=== PATIENT | female | born 1990 | race Caucasian/White ===

== ENCOUNTER 2016-09-27 09:07 | Emergency (ER) | payer BC ==
[2016-09-27 09:19] VITALS: BP 129/78
[2016-09-27] MEDS ORDERED: Lidocaine/EPINEPHrine/Tetracaine Soln 1 ML TOP ONE (09:36)
--- NOTE | 2016-09-27 09:36 | EDM.PDOC ---
ED HPI GENERAL MEDICAL PROBLEM - General Chief Complaint: Chest Pain Stated Complaint: CHEST PAIN CHEMO PATIENT Time Seen by Provider: 09/27/16 09:26 Source of Information: Reports: Patient, Family (spouse) History Limitations: Reports: No Limitations - History of Present Illness INITIAL COMMENTS - FREE TEXT/NARRATIVE: 26-year-old female presents to the ED with pleuritic anterior chest pain. She feels that in the pelvis stomach and then radiates up into her neck and anterior throat. Seems to be worse on the right as compared to the left. She awoke with these symptoms this morning. She was fine when she went to bed last night. Patient is undergone recent left subclavian node biopsy with confirmation of Hodgkin's disease. In suffering from intermittent fever night sweats diaphoresis for the last 3-4 weeks. Apparently she also had indirect laryngoscopy or bronchoscopy which failed to provide any firm diagnosis. She's also had a spontaneous pneumothorax on the left side in the past. Pain is strongly pleuritic. Denies cough or sputum production. She feels warm to palpation but nurses identify a normal temperature. She is tachypneic at rest. O2 sats are 99% on room air. Resting tachycardia of 110-115/m. no associated odynophagia or GERD symptoms. Onset: Today (Left with symptom O's about 0730 hrs.) Onset Date: 09/27/16 Onset Time: 07:30 Duration: Hour(s): Location: Reports: Chest Quality: Reports: Sharp, Stabbing Severity: Moderate (Pleuritic-type pain rates pain as 6-7 out of 10) Improves with: Reports: Rest Worsens with: Reports: Other (Shallow breathing deep breathing) Context: Reports: Other (Awoke with symptoms.). Denies: Activity ( or cough.), Exercise, Lifting, Sick Contact, Trauma Associated Symptoms: Reports: Chest Pain, Diaphoresis, Malaise, Shortness of Breath, Weakness. 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) (None.) Middle Pain Score (Numeric/FACES): 7 - Related Data Allergies Allergy/AdvReac Type Severity Reaction Status Date / Time No Known Allergies Allergy Verified 09/27/16 09:23 Home Meds: Home Meds Acyclovir [Zovirax] 800 mg PO BID 03/17/16 [History] Allopurinol [Zyloprim] 300 mg PO DAILY 03/17/16 [History] Fluconazole [Diflucan] 400 mg PO DAILY 03/17/16 [History] Hydrocortisone [Hydrocortisone 2.5% Crm] 30 gm TOP BID 03/17/16 [History] Levofloxacin [Levaquin] 500 mg PO Q24H 03/17/16 [History] Ondansetron [Zofran] 8 mg PO Q8H 03/17/16 [History] Polyethylene Glycol 3350 [MiraLAX] 17 gm PO DAILY 03/17/16 [History] Vit 90/Iron Fum/Folic [ Formula] 1 tab PO DAILY 03/17/16 [ History] Promethazine HCl [Phenergan] 25 mg TOP Q6H 03/17/16 [History] Sennosides/Docusate Sodium [Senna Laxative Tablet] 2 tab PO DAILY 03/17/16 [ History] Sulfamethoxazole/Trimethoprim [Bactrim Ds Tablet] 1 each PO MOWEFR 03/17/16 [ History] medroxyPROGESTERone Acetate [Depo-Provera] 150 mg IM ASDIRECTED 03/17/16 [ History] oxyCODONE HCl/Acetaminophen [oxyCODONE-Acetaminophen 5-325] 1 - 2 tab PO Q6H PRN 03/17/16 [History] traMADol [Ultram] 50 mg PO Q6H 03/17/16 [History] Ondansetron [Zofran ODT] 4 mg PO Q6H #12 tab.dis 09/27/16 [Rx] oxyCODONE HCl/Acetaminophen [Percocet 5-325 mg Tablet] 1 - 2 each PO Q4H PRN # 20 tablet 09/27/16 [Rx] Past Medical History HEENT History: Reports: None Cardiovascular History: Reports: None Respiratory History: Reports: None Gastrointestinal History: Reports: Other (See Below) Other Gastrointestinal History: Crohn's disease Genitourinary History: Reports: None 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 - Infectious Disease History Infectious Disease History: Reports: Chicken Pox - Past Surgical History HEENT Surgical History: Reports: Tonsillectomy GI Surgical History: Reports: Colonoscopy Social & Family History - Tobacco Use Smoking Status *Q: Never Smoker Second Hand Smoke Exposure: No - Caffeine Use Caffeine Use: Reports: None - Alcohol Use Days Per Week of Alcohol Use: 0 - Recreational Drug Use Recreational Drug Use: No - Living Situation & Occupation Living situation: Reports: ED ROS GENERAL - Review of Systems Review Of Systems: See Below Constitutional: Reports: Fever, Chills, Malaise, Weakness, Fatigue, Night Sweats , Diaphoresis, Decreased Appetite, Weight Loss, Other (Recent diagnosis of Hodgkin's disease by his way of subclavian node biopsy.) HEENT: Reports: No Symptoms Respiratory: Reports: Shortness of Breath, Pleuritic Chest Pain. Denies: Wheezing, Cough, Sputum, Hemoptysis, Other Cardiovascular: Reports: Chest Pain. Denies: Blood Pressure Problem (History of present illness), Claudication, Dyspnea on Exertion, Edema, Lightheadedness, Orthopnea, Palpitations Endocrine: Reports: Fatigue GI/Abdominal: Reports: Decreased Appetite. Denies: Abdominal Pain, Anorexia : Reports: No Symptoms Musculoskeletal: Reports: No Symptoms Skin: Reports: No Symptoms, Pallor Neurological: Reports: No Symptoms ED EXAM, GENERAL - Physical Exam Exam: See Below Exam Limited By: No Limitations General Appearance: Alert, Moderate Distress (Splinting respirations. She is breathing shallowly and rapidly.) Eye Exam: Bilateral Eye: Normal Inspection (No jaundice.) Throat/Mouth: Normal Inspection, Normal Lips, Normal Teeth, Normal Oropharynx Head: Atraumatic, Normocephalic Neck: Lymphadenopathy (L) (Left supraclavicular and anterior to the sternocleidomastoid.), Other (She has a surgical wound with skin glue left anterior lateral neck.) Respiratory/Chest: Lungs Clear, Normal Breath Sounds, No Accessory Muscle Use, Chest Non-Tender, Other (Port-A-Cath right upper anterior chest.). No: Crackles , Rales, Rhonchi, Wheezing Cardiovascular: Normal Peripheral Pulses, Regular Rate, Rhythm, No Edema, No Murmur, No Rub Peripheral Pulses: 3+: Posterior Tibial (L), Posterior Tibial (R), Dorsalis Pedis (L), Dorsalis Pedis (R) GI/Abdominal: Normal Bowel Sounds, Soft, Non-Tender, No Organomegaly Extremities: Normal Inspection, Normal Range of Motion, Non-Tender, Normal Capillary Refill Neurological: Alert, Oriented, CN II-XII Intact, Normal Cognition, Normal Gait, Normal Reflexes, No Motor/Sensory Deficits Psychiatric: Normal Affect, Normal Mood Skin Exam: Warm, Dry, Intact, Normal Color, No Rash Lymphatic: No Adenopathy EKG INTERPRETATION EKG Date: 09/27/16 Time: 09:15 Rhythm: NSR Rate (Beats/Min): 100 Cashion: Normal P-Wave: Present QRS: Normal ST-T: Other (Borderline repolarization abnormality.) QT: Normal Course - Vital Signs Last Recorded V/S: Last Vital Signs Temp 36.4 C 09/27/16 09:12 Pulse 110 H 09/27/16 09:12 Resp 10 L 09/27/16 09:12 BP 129/78 09/27/16 09:12 Pulse Ox 95 09/27/16 09:12 - Orders/Labs/Meds Orders: Active Orders 24 hr Category Date Time Status EKG 12 Lead [EKG Documentation Completion] [RC] STAT Care 09/27/16 09:59 Active Insert Urinary Catheter [OM.PC] Q24H Care 09/27/16 11:15 Ordered Urinary Catheter Assessment [RC] ASDIRECTED Care 09/27/16 11:10 Active Labs: Laboratory Tests 09/27/16 09/27/16 09/27/16 Range/Units 10:25 10:25 10:25 WBC 18.15 H (3.98-10.04) K/mm3 RBC 3.42 L (3.98-5.22) M/mm3 Hgb 9.2 L (11.2-15.7) gm/L Hct 29.2 L (34.1-44.9) % MCV 85.4 (79.4-94.8) fl MCH 26.9 (25.6-32.2) pg MCHC 31.5 L (32.2-35.5) g/dl RDW Std Deviation 47.4 H (36.4-46.3) fL Plt Count 543 H (182-369) K/mm3 MPV 8.9 L (9.4-12.3) fl Neutrophils % (Manual) 91 H (40-60) % Band Neutrophils % 0 (0-10) % Lymphocytes % (Manual) 2 L (20-40) % Atypical Lymphs % 0 % Monocytes % (Manual) 7 (2-10) % Eosinophils % (Manual) 0 L (0.7-5.8) % Basophils % (Manual) 0 L (0.1-1.2) Platelet Estimate Increased Plt Morphology Comment Normal Polychromasia 1+ slight Poikilocytosis Moderate Anisocytosis Moderate Microcytosis Few Spherocytes Few Helmet Cells Few Schistocytes Few RBC Morph Comment Not Reportable D-Dimer, Quantitative 0.98 H (0.19-0.59) mg/L Sodium 142 (136-145) mEq/L Potassium 3.2 L (3.5-5.1) mEq/L Chloride 106 (98-107) mEq/L Carbon Dioxide 28 (21-32) mEq/L Anion Gap 11.2 (5-15) BUN 14 (7-18) mg/dL Creatinine 1.0 (0.55-1.02) mg/dL Est Cr Clr Drug Dosing 73.62 mL/min Estimated GFR (MDRD) > 60 (>60) mL/min BUN/Creatinine Ratio 14.0 (14-18) Glucose 90 (74-106) mg/dL Calcium 8.9 (8.5-10.1) mg/dL Magnesium 1.7 L (1.8-2.4) mg/dl Total Bilirubin 0.3 (0.2-1.0) mg/dL AST 13 L (15-37) U/L ALT 21 (14-59) U/L Alkaline Phosphatase 95 (46-116) U/L Troponin I 0.038 (0.00-0.056) ng/mL Total Protein 6.1 L (6.4-8.2) g/dl Albumin 2.6 L (3.4-5.0) g/dl Globulin 3.5 gm/dL Albumin/Globulin Ratio 0.7 L (1-2) Urine Color (Yellow) Urine Appearance (Clear) Urine pH (5.0-8.0) Ur Specific Gregory (1.005-1.030) Urine Protein (Negative) Urine Glucose (UA) (Negative) Urine Ketones (Negative) Urine Occult Blood (Negative) Urine Nitrite (Negative) Urine Bilirubin (Negative) Urine Urobilinogen (0.2-1.0) Ur Leukocyte Esterase (Negative) Urine RBC (0-5) /hpf Urine WBC (0-5) /hpf Ur Epithelial Cells (0-5) /hpf Urine Bacteria (FEW) /hpf Urine Mucus (FEW) /hpf 09/27/16 Range/Units 11:12 WBC (3.98-10.04) K/mm3 RBC (3.98-5.22) M/mm3 Hgb (11.2-15.7) gm/L Hct (34.1-44.9) % MCV (79.4-94.8) fl MCH (25.6-32.2) pg MCHC (32.2-35.5) g/dl RDW Std Deviation (36.4-46.3) fL Plt Count (182-369) K/mm3 MPV (9.4-12.3) fl Neutrophils % (Manual) (40-60) % Band Neutrophils % (0-10) % Lymphocytes % (Manual) (20-40) % Atypical Lymphs % % Monocytes % (Manual) (2-10) % Eosinophils % (Manual) (0.7-5.8) % Basophils % (Manual) (0.1-1.2) Platelet Estimate Plt Morphology Comment Polychromasia Poikilocytosis Anisocytosis Microcytosis Spherocytes Helmet Cells Schistocytes RBC Morph Comment D-Dimer, Quantitative (0.19-0.59) mg/L Sodium (136-145) mEq/L Potassium (3.5-5.1) mEq/L Chloride (98-107) mEq/L Carbon Dioxide (21-32) mEq/L Anion Gap (5-15) BUN (7-18) mg/dL Creatinine (0.55-1.02) mg/dL Est Cr Clr Drug Dosing mL/min Estimated GFR (MDRD) (>60) mL/min BUN/Creatinine Ratio (14-18) Glucose (74-106) mg/dL Calcium (8.5-10.1) mg/dL Magnesium (1.8-2.4) mg/dl Total Bilirubin (0.2-1.0) mg/dL AST (15-37) U/L ALT (14-59) U/L Alkaline Phosphatase (46-116) U/L Troponin I (0.00-0.056) ng/mL Total Protein (6.4-8.2) g/dl Albumin (3.4-5.0) g/dl Globulin gm/dL Albumin/Globulin Ratio (1-2) Urine Color Light yellow (Yellow) Urine Appearance Clear (Clear) Urine pH 7.0 (5.0-8.0) Ur Specific Gregory 1.015 (1.005-1.030) Urine Protein Negative (Negative) Urine Glucose (UA) Negative (Negative) Urine Ketones Negative (Negative) Urine Occult Blood 1+ H (Negative) Urine Nitrite Negative (Negative) Urine Bilirubin Negative (Negative) Urine Urobilinogen 0.2 (0.2-1.0) Ur Leukocyte Esterase Negative (Negative) Urine RBC 5-10 H (0-5) /hpf Urine WBC 0-5 (0-5) /hpf Ur Epithelial Cells 0-5 (0-5) /hpf Urine Bacteria Not seen (FEW) /hpf Urine Mucus Not seen (FEW) /hpf Meds: Medications Discontinued Medications Generic Name Dose Route Start Last Admin Trade Name Freq PRN Reason Stop Dose Admin Heparin Sodium (Porcine) 500 units 09/27/16 12:33 09/27/16 12:43 Heparin Lock Flush 100 Units/Ml FLUSH 09/27/16 12:34 500 units ASDIRECTED ONE Administration Hydromorphone HCl 0.5 mg 09/27/16 10:05 Dilaudid IVPUSH 09/27/16 10:06 ONETIME ONE Sodium Chloride 100 mls @ 65 mls/hr 09/27/16 10:45 09/27/16 10:46 Normal Saline IV 65 mls/hr ASDIRECTED CHAUNCEY Administration Iopamidol 100 ml 09/27/16 10:35 09/27/16 10:45 Isovue-370 (76%) IVPUSH 09/27/16 10:36 100 ml ONETIME ONE Administration Lidocaine/Tetracaine 1 ml 09/27/16 09:36 09/27/16 10:32 Let Soln TOP 09/27/16 09:37 1 ml ONETIME ONE Administration Metoclopramide HCl 7.5 mg 09/27/16 10:05 Reglan IVPUSH 09/27/16 10:06 ONETIME ONE Sodium Chloride 10 ml 09/27/16 10:35 09/27/16 10:46 Saline Flush FLUSH 10 ml ONETIME PRN Administration IV FLUSH - Radiology Interpretation Free Text/Narrative:: 26-year-old female presents the ED with pleuritic anterior mid chest pain also a bit to the right. Her symptoms this morning. She is breathing shallowly and is tachycardic at rest. Diagnosis of Hodgkin's disease by way of lymph node biopsy left anterior lateral neck. Has been on chemotherapy including bleomycin and recent chemotherapy changed when they were at the [facility] last week. They're not sure what this medication is at this time. Pain is partially 7 out of 10. Strongly pleuritic. Exam shows lungs with good air entry to both lung montgomery O2 sats of 99-100% on room air. Concern for pulmonary embolism exist due to Hodgkin's disease. Plan we'll start with 2 view chest make sure there is no repeat current pneumothorax or pneumomediastinum. She has a Port-A-Cath right upper anterior chest. - Re-Assessments/Exams Free Text/Narrative Re-Assessment/Exam: 09/27/16 10:14 2 view chest x-ray does not reveal any new been pneumomediastinum or pneumothorax. The lungs visualized appear clear. There may be some mild prominence in the right perihilar area. Therefore her Port-A-Cath will be accessed. She'll be given D5 normal saline at 150 mils per hour. Given Dilaudid 0.5 mg IV with Reglan 7.5 mg IV for pain relief. CT pulmonary angiogram will be done. Labs to include d-dimer and troponin. 09/27/16: D-Dimer is 0.98. WBC is elevated at 18.5 --90 % neutrophils and 0% bands. Hgb is 9.2 hct is 29.2. Platelets are eelvated at 543,000. Potassium is low at 3.2 . magnesium is 1.7 Urine reveals 5-10 RBC`s. 09/27/16 11:35: CT pulmonary angiogram has been completed. It reveals nodule s in lungs and paramedian lymph nodes are smaller than on previous CT exam No pulmonary emboli exist. She reports pleuritic pain has let up a good deal without pain meds. She refused the Dilaudid andregaln offered to her earlier. Plan : She will be discharged to home. Cause of pleuritic pain unclear. Obvious irritation of lung and mediastinal pleura. From necrosis of tumor? Script written for Zofran 4mg s/l Q 6hrs prn for nausea releif. Percocet tabs 5/ 325mg one every 4-6hrs prn if need for pain releif. May try Aleve two tabs Q 8hrs prn first. Follow up with oncologist as planned. Departure - Departure Time of Disposition: 12:17 Disposition: Home, Self-Care 01 Condition: Fair Clinical Impression: Pleuritic chest pain Prescriptions: Ondansetron [Zofran ODT] 4 mg PO Q6H #12 tab.dis oxyCODONE HCl/Acetaminophen [Percocet 5-325 mg Tablet] 1 - 2 each PO Q4H PRN # 20 tablet PRN Reason: pain relief. Instructions: Nonspecific Chest Pain, [id number] Referrals: Suha Finch MD [Primary Care Provider] - Forms: ED Department Discharge Additional Instructions: Evaluation in the emergency room today in regards to strong pleuritic sharp stabbing anterior chest pain that she awoke with this morning. 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 Workup was done to make sure there was no blood clots in the lungs and none were found. The visualized previous lymphadenopathy along the mediastinum and in the lungs is shrinking and improved from last CT done here. Elevated white count is felt to be due to steroid effect as you do not have a fever at this time at least very low-grade. Because of the pleuritic chest pain is unclear it may be due to tumor necrosis or deaths of tumor cells secondary to chemotherapy. It may be due to the side effect of chemotherapy itself. However there is no blood clot in the lawn or heart related illness. Suggested use of Zofran 4 mg under the tongue every 4-6 hours as necessary for nausea relief. Use Aleve 2 tablets every 8 hours to relieve pain and inflammation. May use Percocet 5/3/25 milligrams if needed for more severe pain. You could use 1 tablet every 4-6 hours with the Zofran 4 mg under the tongue if necessary if the pain pill causes nausea. Follow-up with her oncologist of any further problems occur. - My Orders Last 24 Hours: My Active Orders 09/27/16 09:59 EKG 12 Lead [EKG Documentation Completion] [RC] STAT 09/27/16 11:10 Urinary Catheter Assessment [RC] ASDIRECTED 09/27/16 11:15 Insert Urinary Catheter [OM.PC] Q24H - Assessment/Plan Last 24 Hours: My Active Orders 09/27/16 09:59 EKG 12 Lead [EKG Documentation Completion] [RC] STAT 09/27/16 11:10 Urinary Catheter Assessment [RC] ASDIRECTED 09/27/16 11:15 Insert Urinary Catheter [OM.PC] Q24H
[2016-09-27] MEDS ORDERED: HYDROmorphone 0.5 MG/0.5 ML Syringe IVPUSH ONE (10:05)
[2016-09-27] MEDS ORDERED: Metoclopramide 10 MG/2 ML SDV IVPUSH ONE (10:05)
[2016-09-27] MEDS ORDERED: Sodium Chloride 0.9% 10 ML Syringe FLUSH PRN (10:35)
[2016-09-27] MEDS ORDERED: Iopamidol 755 Mg/ML 100 ML Bottle IVPUSH ONE (10:35)
[2016-09-27] MEDS ORDERED: Sodium Chloride 0.9% 100 ML IV SCH (10:45)
--- NOTE | 2016-09-27 11:32 | CT ---
CT chest Technique: Multiple axial sections were obtained through the chest. Intravenous contrast was utilized. Study has been performed as a pulmonary angiogram protocol. Comparison: Previous outside chest CT of 02/18/16. Findings: Pulmonary arteries are well-opacified. No filling defects are seen to indicate pulmonary embolism. Confluent adenopathy is seen within the mediastinum. This shows some improvement from previous exam. Adenopathy is seen within both hilar regions. Hilar adenopathy is also improved from prior exam. Scattered nodules are seen within the chest which are less prominent than on previous exam. Pericardial thickening is seen which also has improved. Small portion of the visualized upper abdominal structures are within normal limits. No axillary adenopathy is seen. Impression: 1. No findings of pulmonary embolism. 2. Confluent adenopathy within the mediastinum and hilar regions. Multiple pulmonary nodules are seen. All 3 finding show improvement from prior CT exam of 02/18/16. 3. Pericardial thickening which also has improved from prior exam. Diagnostic code #3
--- NOTE | 2016-09-27 14:37 | CR ---
Chest: Two views of the chest were obtained. Comparison: No previous chest x-ray. Nodular type density is seen within the left base. This is seen on the frontal view. Prominence of the right hilum is seen and difficult to exclude adenopathy. There is also soft tissue fullness within the right mediastinum. Infusion catheter seen entering from the right side. Bony structures are unremarkable. Impression: 1. Findings within the chest as described above. Chest CT could be considered to further evaluate. Diagnostic code #9
== END 2016-09-27 12:50 | disposition home or self-care (01) ==
LOC: JD.ED 09:07
DX: R07.81 Pleurodynia (principal); Z79.899 Other long term (current) drug therapy; Z98.890 Other specified postprocedural states
CPT/HCPCS: 36415; 36591; 51701; 71020; 71275; 80053; 81001; 83735; 84484; 85025; 85379; 93005; 99285; A9270; J1642; J7030; J7050; Q9967; 99284

== ENCOUNTER 2017-06-23 18:53 | Emergency (ER) | payer BC ==
[2017-06-23 19:13] VITALS: BP 101/69
--- NOTE | 2017-06-23 19:40 | EDM.PDOC ---
ED HPI GENERAL MEDICAL PROBLEM - General Chief Complaint: Fever Stated Complaint: FEVER/HAS STAGE 4 CANCER Time Seen by Provider: 06/23/17 19:15 - History of Present Illness INITIAL COMMENTS - FREE TEXT/NARRATIVE: 27-year-old female returns emergency room with fevers chills worsening cough. Patient has had fevers for about the last week she was in the clinic diagnosed with urinary tract infection on Tuesday she was started on Levaquin. 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 She had this done in November the lymphoma was back in April now she is on immune therapy this was just started. Her family has been sick the last week or so. She's had temperature as high as 1027 at home. She is not having significant nausea or vomiting no diarrhea or constipation no significant belly tenderness. chest pain Pain Score (Numeric/FACES): 4 - Related Data Allergies Allergy/AdvReac Type Severity Reaction Status Date / Time brentuximab vedotin Allergy Difficulty Verified 06/23/17 19:13 Breathing Home Meds: Home Meds Hydrocortisone [Hydrocortisone 2.5% Crm] 30 gm TOP BID PRN 03/17/16 [History] Levofloxacin [Levaquin] 500 mg PO Q24H 03/17/16 [History] Polyethylene Glycol 3350 [MiraLAX] 17 gm PO DAILY PRN 03/17/16 [History] Vit 90/Iron Fum/Folic [ Formula] 1 tab PO DAILY 03/17/16 [ History] Promethazine HCl [Phenergan] 25 mg TOP Q6H PRN 03/17/16 [History] Sennosides/Docusate Sodium [Senna Laxative Tablet] 2 tab PO DAILY 03/17/16 [ History] medroxyPROGESTERone Acetate [Depo-Provera] 150 mg IM ASDIRECTED 03/17/16 [ History] D-Mannose 600 mg PO DAILY 06/23/17 [History] Gabapentin [Neurontin] 300 mg PO BID 06/23/17 [History] Lidocaine 4% [LMX 4 Crm] 1 dose TOP ASDIRECTED PRN 06/23/17 [History] Ondansetron [Zofran ODT] 4 mg PO Q6H PRN 06/23/17 [History] Oseltamivir [Tamiflu] 75 mg PO Q12H #9 cap 06/23/17 [Rx] Penicillin V Potassium 500 mg PO BID 06/23/17 [History] Vancomycin 125 mg PO DAILY 06/23/17 [History] Past Medical History HEENT History: Reports: None Cardiovascular History: Reports: None Respiratory History: Reports: Pneumonia, Recurrent, Other (See Below) 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 Gastrointestinal History: Reports: Other (See Below) Other Gastrointestinal History: Crohn's disease Genitourinary History: Reports: UTI, Recurrent Other Genitourinary History: self cath - 5-6 times a day NOTCH GRINDER History: Reports: Musculoskeletal History: Reports: None Other Musculoskeletal History: transverse melitis Hematologic History: Reports: Anemia Immunologic History: Reports: Immunosuppression, Other (See Below) Other Immunologic History: Crohn's in remission, immunotherapy Oncologic (Cancer) History: Reports: Hodgkin's Lymphoma, Other (See Below) 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 - Infectious Disease History Infectious Disease History: Reports: Chicken Pox - Past Surgical History HEENT Surgical History: Reports: Tonsillectomy GI Surgical History: Reports: Colonoscopy Social & Family History - Family History Cardiac: Reports: [place] Endocrine/Metabolic: Reports: Diabetes, Type I Oncologic: Reports: Breast - Tobacco Use Smoking Status *Q: Never Smoker Second Hand Smoke Exposure: No - Caffeine Use Caffeine Use: Reports: None - Alcohol Use Days Per Week of Alcohol Use: 0 - Recreational Drug Use Recreational Drug Use: No - Living Situation & Occupation Living situation: Reports: ED ROS GENERAL - Review of Systems Review Of Systems: See Below Constitutional: Reports: Fever, Chills HEENT: Reports: Rhinitis Respiratory: Reports: Cough, Sputum Cardiovascular: Reports: No Symptoms Endocrine: Reports: No Symptoms GI/Abdominal: Reports: Nausea. Denies: No Symptoms, Abdominal Pain : Reports: No Symptoms Musculoskeletal: Reports: No Symptoms Skin: Reports: No Symptoms Neurological: Reports: No Symptoms Hematologic/Lymphatic: Reports: No Symptoms Immunologic: Reports: No Symptoms ED EXAM, GENERAL - Physical Exam Exam: See Below Exam Limited By: No Limitations General Appearance: No Apparent Distress, Mild Distress Eye Exam: Bilateral Eye: Normal Inspection, PERRL Ears: Normal External Exam, Normal Canal, Hearing Grossly Normal, Normal TMs Nose: Normal Inspection, Normal Mucosa, No Blood Throat/Mouth: Normal Inspection, Normal Lips, Normal Teeth, Normal Gums, Normal Oropharynx, Normal Voice, No Airway Compromise Head: Atraumatic, Normocephalic Neck: Normal Inspection, Supple, Non-Tender, Full Range of Motion, Other (She has a few neck nodes palpable) Respiratory/Chest: No Respiratory Distress, Lungs Clear, Other (Deep breathing triggers a cough) Cardiovascular: Regular Rate, Rhythm, No Edema, No Murmur GI/Abdominal: Normal Bowel Sounds, Soft, Non-Tender Back Exam: Normal Inspection. No: CVA Tenderness (L), CVA Tenderness (R) Extremities: Normal Inspection, No Pedal Edema Psychiatric: Normal Affect Skin Exam: Warm, Dry, Intact Course - Vital Signs Last Recorded V/S: Last Vital Signs Temp 36.6 C 06/23/17 21:05 Pulse 139 H 06/23/17 19:00 Resp 30 H 06/23/17 19:00 BP 101/69 06/23/17 19:00 Pulse Ox 98 06/23/17 19:00 - Orders/Labs/Meds Orders: Active Orders 24 hr Category Date Time Status RT Aerosol Therapy [RC] ASDIRECTED Care 06/23/17 19:41 Active RT Post Treatment Assessment [RC] Click to Edit Care 06/23/17 21:59 Active RT Pre-Treatment Assessment [RC] Click to Edit Care 06/23/17 21:59 Active Chest 2V [CR] Stat Exams 06/23/17 19:35 Taken CULTURE BLOOD [BC] Stat Lab 06/23/17 20:15 Received CULTURE BLOOD [BC] Stat Lab 06/23/17 20:40 Received Lactated Ringers [Ringers, Lactated] 1,000 ml Med 06/23/17 19:45 Active IV ASDIRECTED Blood Culture x2 Reflex Set [OM.PC] Stat Oth 06/23/17 19:57 Ordered Medication Orders Lactated Ringer's (Ringers, Lactated) 1,000 mls @ 150 mls/hr IV ASDIRECTED CHAUNCEY Last Admin: 06/23/17 21:03 Dose: 150 mls/hr Labs: Laboratory Tests 06/23/17 06/23/17 06/23/17 Range/Units 20:30 20:30 20:30 WBC 6.27 (3.98-10.04) K/mm3 RBC 3.33 L (3.98-5.22) M/mm3 Hgb 9.0 L (11.2-15.7) gm/L Hct 28.5 L (34.1-44.9) % MCV 85.6 (79.4-94.8) fl MCH 27.0 (25.6-32.2) pg MCHC 31.6 L (32.2-35.5) g/dl RDW Std Deviation 51.1 H (36.4-46.3) fL Plt Count 290 (182-369) K/mm3 MPV 8.8 L (9.4-12.3) fl Neutrophils % (Manual) 62 H (40-60) % Band Neutrophils % 1 (0-10) % Lymphocytes % (Manual) 27 (20-40) % Atypical Lymphs % 0 % Monocytes % (Manual) 6 (2-10) % Eosinophils % (Manual) 4 (0.7-5.8) % Basophils % (Manual) 0 L (0.1-1.2) Platelet Estimate Adequate Plt Morphology Comment Normal Anisocytosis 1+ slight RBC Morph Comment Not Reportable PT 11.8 (8.0-13.0) SECONDS INR 1.10 Sodium 137 (136-145) mEq/L Potassium 4.0 (3.5-5.1) mEq/L Chloride 102 (98-107) mEq/L Carbon Dioxide 24 (21-32) mEq/L Anion Gap 15.0 (5-15) BUN 14 (7-18) mg/dL Creatinine 0.8 (0.55-1.02) mg/dL Est Cr Clr Drug Dosing 77.91 mL/min Estimated GFR (MDRD) > 60 (>60) mL/min BUN/Creatinine Ratio 17.5 (14-18) Glucose 106 (74-106) mg/dL Calcium 9.1 (8.5-10.1) mg/dL Total Bilirubin 0.3 (0.2-1.0) mg/dL AST 14 L (15-37) U/L ALT 17 (14-59) U/L Alkaline Phosphatase 141 H (46-116) U/L Total Protein 7.2 (6.4-8.2) g/dl Albumin 3.1 L (3.4-5.0) g/dl Globulin 4.1 gm/dL Albumin/Globulin Ratio 0.8 L (1-2) HCG, Quant mIU/mL 06/23/17 Range/Units 20:30 WBC (3.98-10.04) K/mm3 RBC (3.98-5.22) M/mm3 Hgb (11.2-15.7) gm/L Hct (34.1-44.9) % MCV (79.4-94.8) fl MCH (25.6-32.2) pg MCHC (32.2-35.5) g/dl RDW Std Deviation (36.4-46.3) fL Plt Count (182-369) K/mm3 MPV (9.4-12.3) fl Neutrophils % (Manual) (40-60) % Band Neutrophils % (0-10) % Lymphocytes % (Manual) (20-40) % Atypical Lymphs % % Monocytes % (Manual) (2-10) % Eosinophils % (Manual) (0.7-5.8) % Basophils % (Manual) (0.1-1.2) Platelet Estimate Plt Morphology Comment Anisocytosis RBC Morph Comment PT (8.0-13.0) SECONDS INR Sodium (136-145) mEq/L Potassium (3.5-5.1) mEq/L Chloride (98-107) mEq/L Carbon Dioxide (21-32) mEq/L Anion Gap (5-15) BUN (7-18) mg/dL Creatinine (0.55-1.02) mg/dL Est Cr Clr Drug Dosing mL/min Estimated GFR (MDRD) (>60) mL/min BUN/Creatinine Ratio (14-18) Glucose (74-106) mg/dL Calcium (8.5-10.1) mg/dL Total Bilirubin (0.2-1.0) mg/dL AST (15-37) U/L ALT (14-59) U/L Alkaline Phosphatase (46-116) U/L Total Protein (6.4-8.2) g/dl Albumin (3.4-5.0) g/dl Globulin gm/dL Albumin/Globulin Ratio (1-2) HCG, Quant 5.0 mIU/mL Meds: Medications Generic Name Dose Route Start Last Admin Trade Name Freq PRN Reason Stop Dose Admin Lactated Ringer's 1,000 mls @ 150 mls/hr 06/23/17 19:45 06/23/17 21:03 Ringers, Lactated IV 150 mls/hr ASDIRECTED CHAUNCEY Administration Discontinued Medications Generic Name Dose Route Start Last Admin Trade Name Deann PRN Reason Stop Dose Admin Acetaminophen 650 mg 06/23/17 19:45 06/23/17 19:54 Tylenol PO 06/23/17 19:46 Not Given ONETIME ONE Acetaminophen Confirm 06/23/17 19:54 06/23/17 19:54 Tylenol Administered 06/23/17 19:55 Not Given Dose 650 mg .ROUTE .STK-MED ONE Acetaminophen 650 mg 06/23/17 19:50 06/23/17 19:54 Tylenol PO 06/23/17 19:51 650 mg NOW ONE Administration Albuterol 6.5 gm 06/23/17 21:58 Proventil Hfa INH 06/23/17 21:59 ONETIME ONE Albuterol/Ipratropium 3 ml 06/23/17 19:41 06/23/17 21:00 Duoneb 3.0-0.5 Mg/3 Ml NEB 06/23/17 19:42 3 ml ONETIME ONE Administration Heparin Sodium (Porcine) Confirm 06/23/17 20:39 Heparin Lock Flush 100 Units/Ml Administered 06/23/17 20:40 Dose 500 units .ROUTE .STK-MED ONE Lactated Ringer's 500 mls @ 999 mls/hr 06/23/17 19:36 06/23/17 19:54 Ringers, Lactated IV 06/23/17 20:06 999 mls/hr .BOLUS ONE Administration Oseltamivir Phosphate 75 mg 06/23/17 22:14 Tamiflu PO 06/23/17 22:15 ONETIME ONE - Re-Assessments/Exams Free Text/Narrative Re-Assessment/Exam: 06/23/17 21:20 X-rays been awaiting hCG before dinner chest x-ray she is certain she is not we will get her x-ray now patient had a DuoNeb treatment feels much better. White count is 6000 influenza A is positive. Further disposition pending chest x-ray albeit she is already taking Levaquin. Will discuss with oncology before starting Tamiflu her symptoms of been going on for 5 or 6 days. 06/23/17 21:56 Patient had significant improvement of her symptoms after the nebulizer treatment. Chest x-ray obtained which shows her right-sided port and a questionable developing right lower lobe infiltrate she has already been started on Levaquin. She'll be discharged on albuterol MDI 06/23/17 22:[address] Mcclain, oncologist at [facility] in [place], on-call for Dr. Ulloa. He is leaning more toward starting the Tamiflu 75 mg by mouth twice a day. We'll have the patient follow-up with Dr. Ulloa over the phone tomorrow. We will discharge with the albuterol MDI first dose of Tamiflu given here in the emergency room Departure - Departure Time of Disposition: 22:16 Disposition: Home, Self-Care 01 Clinical Impression: Influenza, Hodgkins lymphoma - Discharge Information Prescriptions: Oseltamivir [Tamiflu] 75 mg PO Q12H #9 cap Referrals: Alexandria Rivera, [employer] [Primary Care Provider] - Forms: ED Department Discharge Additional Instructions: Return to the emergency room with any questions problems worsening symptoms. Use Tylenol as needed to control fever. He been started on albuterol MDI with a spacer. Use this 2 puffs every 4 hours while awake. You have also been started on Tamiflu this is an anti-influenza medication. Your first dose was in the emergency room take this twice daily for 5 days. Continue taking the Levaquin. Call Dr. Ulloa, in the morning and see if he has other recommendations. - My Orders Last 24 Hours: My Active Orders 06/23/17 19:35 Chest 2V [CR] Stat 06/23/17 19:41 RT Aerosol Therapy [RC] ASDIRECTED 06/23/17 19:45 Lactated Ringers [Ringers, Lactated] 1,000 ml IV ASDIRECTED 06/23/17 19:57 Blood Culture x2 Reflex Set [OM.PC] Stat 06/23/17 20:15 CULTURE BLOOD [BC] Stat 06/23/17 20:40 CULTURE BLOOD [BC] Stat 06/23/17 21:59 RT Post Treatment Assessment [RC] Click to Edit RT Pre-Treatment Assessment [RC] Click to Edit - Assessment/Plan Last 24 Hours: My Active Orders 06/23/17 19:35 Chest 2V [CR] Stat 06/23/17 19:41 RT Aerosol Therapy [RC] ASDIRECTED 06/23/17 19:45 Lactated Ringers [Ringers, Lactated] 1,000 ml IV ASDIRECTED 06/23/17 19:57 Blood Culture x2 Reflex Set [OM.PC] Stat 06/23/17 20:15 CULTURE BLOOD [BC] Stat 06/23/17 20:40 CULTURE BLOOD [BC] Stat 06/23/17 21:59 RT Post Treatment Assessment [RC] Click to Edit RT Pre-Treatment Assessment [RC] Click to Edit
[2017-06-23] MEDS: Acetaminophen 325 MG Tab PO ONE (19:54)
[2017-06-23] MEDS: Lactated Ringers 500 ML IV ONE (19:54)
[2017-06-23] MEDS: Acetaminophen 325 MG Tab ONE (19:54)
[2017-06-23] MEDS: Acetaminophen Soln 650 MG/20.3 ML UD Cup PO ONE (19:54)
[2017-06-23] MEDS: Albuterol/Ipratropium 3.0-0.5 MG/3 ML Neb Soln NEB ONE (21:00)
[2017-06-23] MEDS: Lactated Ringers 1,000 ML IV SCH (21:03)
[2017-06-23] MEDS: Albuterol 6.7 GM Inhaler INH ONE (22:26)
[2017-06-23] MEDS: Oseltamivir 75 MG Cap PO ONE (22:30)
--- NOTE | 2017-06-24 08:17 | CR ---
Chest: Two views of the chest were obtained. Comparison: Prior chest x-ray of 09/27/[address] of 09/27/16. Heart size and mediastinum are normal. Right-sided infusion port is seen. Lungs show no acute parenchymal densities. Prominence of the right hilum and right paratracheal soft tissues is noted which is compatible with adenopathy which is seen on chest CT. Bony structures are unremarkable. Impression: 1. Findings compatible with right hilar adenopathy and right paratracheal adenopathy which was noted on prior CT study. 2. Nothing acute is appreciated on two-view chest x-ray. Diagnostic code #3
== END 2017-06-23 22:53 | disposition home or self-care (01) ==
LOC: JD.ED 18:53
DX: J10.1 Influenza due to other identified influenza virus with other respiratory manifestations (principal); C81.90 Hodgkin lymphoma, unspecified, unspecified site; Z88.8 Allergy status to other drugs, medicaments and biological substances; Z79.899 Other long term (current) drug therapy
CPT/HCPCS: 36415; 71046; 80053; 84702; 85025; 85610; 87040; 87804; 94640; 94664; 96360; 96361; 99284; A9270; J1642; J7120

== ENCOUNTER 2018-05-30 19:36 | Inpatient (IN) | payer BC ==
--- NOTE | 2018-05-30 20:58 | EDM.PDOC ---
ED HPI GENERAL MEDICAL PROBLEM - General Chief Complaint: Fever Stated Complaint: FEVER SHORT OF BREATH Time Seen by Provider: 05/30/18 20:26 Source of Information: Reports: Patient, Family (), RN Notes Reviewed History Limitations: Reports: No Limitations - History of Present Illness INITIAL COMMENTS - FREE TEXT/NARRATIVE: The patient states that she has a history of Crohn disease, currently being treated with Entyvio - she received her second dose this past 05/26/2018 , as well as a history of Hodgkin lymphoma diagnosed in 2005. She states that she received a stem cell transplant in November 2016, has undergone 3 rounds of chemotherapy, and is currently on Keytruda, for life. Her last treatment was this past 05/24/2018. The patient states that she developed a fever, nausea, dyspnea, and bloody diarrhea around 02:00 this morning. Her Tmax has been 104.6, although she is afebrile here in the ED. She states that she also developed a sore throat, an occasional cough productive of greenish sputum, and chest soreness when she coughs, over the course of today. She denies having abdominal or back/flank pain. The patient states that she has had similar symptoms in the past, but cannot recall exactly when. It was likely months ago. The patient also has a history of transverse myelitis that requires her to self- catheterize several times a day. The patient denies having urinary symptoms. The patient states that she took some Tylenol at 07:30 this morning, and ibuprofen at 16:00 this afternoon. Here in the ED, the patient's BP is found to be 89/62, which the patient states is normal for her, although her heart rate is elevated at 141 bpm, which is not normal for her. The patient's PCP is Marge Winn. Her Oncologist is Dr. Everette Ulloa. Her Neurologist is Dr. Destin Guzmán. The patient's Urologist is at [facility], but she does not recall his name. The patient states that she has an Oncologist, Punch Operator, and Neurologist at [place], as well. The patient states that she was up-to-date on her vaccines, however, she is now behind, since her stem cell transplant. She did receive an influenza vaccine this season. - Related Data Allergies Allergy/AdvReac Type Severity Reaction Status Date / Time brentuximab vedotin Allergy Difficulty Verified 06/23/17 19:13 Breathing Home Meds: Home Meds Promethazine HCl [Phenergan] 25 mg TOP Q6H PRN 03/17/16 [History] medroxyPROGESTERone Acetate [Depo-Provera] 150 mg IM ASDIRECTED 03/17/16 [ History] Gabapentin [Neurontin] 400 mg PO TID 06/23/17 [History] Ondansetron [Zofran ODT] 8 mg PO Q8HR PRN 06/23/17 [History] Ascorbic Acid [Vitamin C] 1,000 mg PO DAILY 05/30/18 [History] Bisacodyl [Dulcolax] 10 mg RC ASDIRECTED PRN 05/30/18 [History] Budesonide [Budesonide EC] 05/30/18 [History] Dicyclomine HCl [Bentyl] 10 mg PO Q6HR PRN 05/30/18 [History] Estrogens, Conjugated [Premarin Vaginal Crm] 05/30/18 [History] Potassium Chloride 20 meq PO DAILY 05/30/18 [History] Sucralfate 1 gm PO ASDIRECTED PRN 05/30/18 [History] Past Medical History Gastrointestinal History: Reports: Inflammatory Bowel Disease (Crohn disease, with history of esophageal and colon ulcers) Genitourinary History: Reports: Renal Calculus, Retention, Urinary (2 transverse myelitis. 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: Neurological History: Reports: Other (See Below) (Transverse myelitis) Endocrine/Metabolic History: Reports: Hyperthyroidism (transient, resolved) Hematologic History: Reports: Anemia Immunologic History: Reports: Immunosuppression (2 CTx) Oncologic (Cancer) History: Reports: Hodgkin's Lymphoma (dx'd 2015) - Infectious Disease History Infectious Disease History: Reports: Chicken Pox, Influenza - Past Surgical History HEENT Surgical History: Reports: Oral Surgery (3 wisdom teeth extracted), Tonsillectomy Cardiovascular Surgical History: Reports: Other (See Below) (Right Port-A-Cath + replaced x 1) GI Surgical History: Reports: Colonoscopy (x 3), EGD (x 1) Oncologic Surgical History: Reports: Bone Marrow Transplant (Nov 2016), Other ( See Below) (Lymph node bx, left neck, x 2) Social & Family History - Family History Family Medical History: Noncontributory Cardiac: Reports: AR Endocrine/Metabolic: Reports: Diabetes, Type I Oncologic: Reports: Breast - Tobacco Use Smoking Status *Q: Never Smoker Second Hand Smoke Exposure: No - Caffeine Use Caffeine Use: Reports: None - Alcohol Use Alcohol Use History: No - Recreational Drug Use Recreational Drug Use: No - Living Situation & Occupation Living situation: Reports: , with Spouse, with Family (2 kids) Occupation: Unemployed ED ROS GENERAL - Review of Systems Review Of Systems: ROS reveals no pertinent complaints other than HPI. ED EXAM, SEPSIS - Physical Exam Exam: See Below Exam Limited By: No Limitations General Appearance: Alert, No Apparent Distress, Thin Eye Exam: Bilateral Eye: EOMI, Normal Inspection Ears: Normal External Exam, Hearing Grossly Normal Nose: Normal Inspection Throat/Mouth: Normal Inspection, Normal Lips, Normal Voice, No Airway Compromise Head: Atraumatic, Normocephalic Neck: Normal Inspection, Full Range of Motion Respiratory/Chest: No Respiratory Distress, Lungs Clear, Normal Breath Sounds, No Accessory Muscle Use Cardiovascular: Normal Peripheral Pulses, No Edema, No Gallop, No JVD, No Murmur , No Rub, Tachycardia (regular) Peripheral Pulses: 4+: Radial (L), Radial (R) GI/Abdominal Exam: Normal Bowel Sounds, Soft, Non-Tender, No Organomegaly, No Distention, No Abnormal Bruit, No Mass (Female) Exam: Deferred Rectal (Female) Exam: Deferred Back: Normal Inspection, Full Range of Motion. No: CVA Tenderness (L), CVA Tenderness (R) Extremities: Normal Inspection, Normal Range of Motion, No Pedal Edema, Normal Capillary Refill Neurological: Alert, Oriented, Normal Cognition, No Motor/Sensory Deficits Psychiatric: Normal Affect Skin: Warm, Dry, Intact, Normal Color, No Rash Lymphatic: Bilateral: No Adenopathy EKG INTERPRETATION EKG Date: 05/30/18 Time: 20:51 Rhythm: Other (Sinus tachycardia) Rate (Beats/Min): 132 [place]: Normal P-Wave: Present QRS: Normal ST-T: Normal QT: Normal Comparison: No Change (09/27/2016) Course - Vital Signs Last Recorded V/S: Last Vital Signs Temp 36.7 C 05/30/18 19:46 Pulse 141 H 05/30/18 19:46 Resp 24 H 05/30/18 19:46 BP 89/62 L 05/30/18 19:46 Pulse Ox 95 05/30/18 19:46 - Orders/Labs/Meds Orders: Active Orders 24 hr Category Date Time Status EKG Documentation Completion [RC] STAT Care 05/30/18 20:31 Active Implanted Port Access [RC] Q12HR Care 05/30/18 21:00 Active Orthostatic Vital Signs [RC] STAT Care 05/30/18 22:01 Active Chest 1V Frontal [CR] Stat Exams 05/30/18 20:31 Taken CULTURE BLOOD [BC] Stat Lab 05/30/18 20:58 Received CULTURE BLOOD [BC] Stat Lab 05/30/18 21:10 Received CULTURE STREP A CONFIRMATION [RM] Stat Lab 05/30/18 20:45 Results CULTURE URINE [RM] Stat Lab 05/30/18 20:31 Received STREP SCRN A RAPID W CULT CONF [RM] Stat Lab 05/30/18 20:45 Results Blood Culture x2 Reflex Set [OM.PC] Stat Oth 05/30/18 20:31 Ordered Labs: Laboratory Tests 05/30/18 05/30/18 05/30/18 Range/Units 20:58 20:58 20:58 WBC 10.26 H (3.98-10.04) K/mm3 RBC 4.37 (3.98-5.22) M/mm3 Hgb 11.1 L (11.2-15.7) gm/L Hct 36.2 (34.1-44.9) % MCV 82.8 (79.4-94.8) fl MCH 25.4 L (25.6-32.2) pg MCHC 30.7 L (32.2-35.5) g/dl RDW Std Deviation 45.5 (36.4-46.3) fL Plt Count 370 H (182-369) K/mm3 MPV 8.3 L (9.4-12.3) fl Neutrophils % (Manual) 73 H (40-60) % Band Neutrophils % 2 (0-10) % Lymphocytes % (Manual) 18 L (20-40) % Atypical Lymphs % 0 % Monocytes % (Manual) 5 (2-10) % Eosinophils % (Manual) 1 (0.7-5.8) % Basophils % (Manual) 0 L (0.1-1.2) Myelocytes % 1 Platelet Estimate Adequate RBC Morph Comment Normal Sodium 137 (136-145) mEq/L Potassium 3.5 (3.5-5.1) mEq/L Chloride 102 (98-107) mEq/L Carbon Dioxide 23 (21-32) mEq/L Anion Gap 15.5 H (5-15) BUN 10 (7-18) mg/dL Creatinine 1.0 (0.55-1.02) mg/dL Est Cr Clr Drug Dosing 71.37 mL/min Estimated GFR (MDRD) > 60 (>60) mL/min BUN/Creatinine Ratio 10.0 L (14-18) Glucose 98 (74-106) mg/dL Lactic Acid 0.8 (0.4-2.0) mmol/L Calcium 8.9 (8.5-10.1) mg/dL Magnesium 1.6 L (1.8-2.4) mg/dl Total Bilirubin 0.3 (0.2-1.0) mg/dL AST 16 (15-37) U/L ALT 45 (14-59) U/L Alkaline Phosphatase 171 H (46-116) U/L Total Protein 6.9 (6.4-8.2) g/dl Albumin 2.5 L (3.4-5.0) g/dl Globulin 4.4 gm/dL Albumin/Globulin Ratio 0.6 L (1-2) Urine Color (Yellow) Urine Appearance (Clear) Urine pH (5.0-8.0) Ur Specific Bitting[place] (1.005-1.030) Urine Protein (Negative) Urine Glucose (UA) (Negative) Urine Ketones (Negative) Urine Occult Blood (Negative) Urine Nitrite (Negative) Urine Bilirubin (Negative) Urine Urobilinogen (0.2-1.0) Ur Leukocyte Esterase (Negative) Urine RBC (0-5) /hpf Urine WBC (0-5) /hpf Ur Epithelial Cells (0-5) /hpf Urine Bacteria (FEW) /hpf Urine Mucus (FEW) /hpf 05/30/18 Range/Units 21:40 WBC (3.98-10.04) K/mm3 RBC (3.98-5.22) M/mm3 Hgb (11.2-15.7) gm/L Hct (34.1-44.9) % MCV (79.4-94.8) fl MCH (25.6-32.2) pg MCHC (32.2-35.5) g/dl RDW Std Deviation (36.4-46.3) fL Plt Count (182-369) K/mm3 MPV (9.4-12.3) fl Neutrophils % (Manual) (40-60) % Band Neutrophils % (0-10) % Lymphocytes % (Manual) (20-40) % Atypical Lymphs % % Monocytes % (Manual) (2-10) % Eosinophils % (Manual) (0.7-5.8) % Basophils % (Manual) (0.1-1.2) Myelocytes % Platelet Estimate RBC Morph Comment Sodium (136-145) mEq/L Potassium (3.5-5.1) mEq/L Chloride (98-107) mEq/L Carbon Dioxide (21-32) mEq/L Anion Gap (5-15) BUN (7-18) mg/dL Creatinine (0.55-1.02) mg/dL Est Cr Clr Drug Dosing mL/min Estimated GFR (MDRD) (>60) mL/min BUN/Creatinine Ratio (14-18) Glucose (74-106) mg/dL Lactic Acid (0.4-2.0) mmol/L Calcium (8.5-10.1) mg/dL Magnesium (1.8-2.4) mg/dl Total Bilirubin (0.2-1.0) mg/dL AST (15-37) U/L ALT (14-59) U/L Alkaline Phosphatase (46-116) U/L Total Protein (6.4-8.2) g/dl Albumin (3.4-5.0) g/dl Globulin gm/dL Albumin/Globulin Ratio (1-2) Urine Color Yellow (Yellow) Urine Appearance Cloudy H (Clear) Urine pH 6.5 (5.0-8.0) Ur Specific [place] 1.020 (1.005-1.030) Urine Protein 2+ H (Negative) Urine Glucose (UA) Negative (Negative) Urine Ketones Trace H (Negative) Urine Occult Blood 2+ H (Negative) Urine Nitrite Negative (Negative) Urine Bilirubin Negative (Negative) Urine Urobilinogen 0.2 (0.2-1.0) Ur Leukocyte Esterase 1+ H (Negative) Urine RBC 5-10 H (0-5) /hpf Urine WBC 75-100 H (0-5) /hpf Ur Epithelial Cells 5-10 H (0-5) /hpf Urine Bacteria Few (FEW) /hpf Urine Mucus Many H (FEW) /hpf Meds: Medications Discontinued Medications Generic Name Dose Route Start Last Admin Trade Name Deann PRN Reason Stop Dose Admin Magnesium Sulfate 2 gm/ Premix 50 mls @ 50 mls/hr 05/30/18 22:00 05/30/18 22: 14 IV 05/30/18 22:59 50 mls/hr ONETIME STA Administration Sodium Chloride 1,000 mls @ 999 mls/hr 05/30/18 22:00 05/30/18 22:10 Normal Saline IV 05/30/18 23:00 999 mls/hr ONETIME ONE Administration Oseltamivir Phosphate 75 mg 05/30/18 22:28 05/30/18 22:47 Tamiflu PO 05/30/18 22:29 75 mg ONETIME STA Administration - Re-Assessments/Exams Free Text/Narrative Re-Assessment/Exam: 05/30/18 20:56 As the patient is immunosuppressed, I am concerned about sepsis. The patient's blood pressure is low, although she states that her current values are her normal. I have ordered a workup, that includes a urinalysis. The patient requested that she self-catheter, which I am okay with, but I requested that a nurse observe, to make sure that her technique is good, and that we get a clean sample. I would like two sets of blood cultures, one of which should be drawn from the Port-A-Cath. 05/30/18 21:06 Portable chest radiograph appears to be grossly normal. The cardiac silhouette is within normal limits. No pulmonary vascular congestion. No pleural effusions. No focal infiltrate. No pneumothorax. Formal read per the Radiologist pending. 05/30/18 22:02 The patient's WBC count is elevated at 10.26, but with only 2% bandemia. Her CMP is unremarkable. Her magnesium level is depressed at 1.6 I have ordered a 1 g Mg-rider and 1 L of NS. We will check orthostatics, as well. 05/30/18 22:26 The patient is not orthostatic. The patient's influenza swab has returned positive for influenza A. The patient's urinalysis is negative for nitrites, and shows only a few bacteria , however, there are 75-100 WBCs and 1+ leukocyte esterase, with 5-10 epithelial cells. I will order a urine culture and Tamiflu. 05/30/18 22:40 Test results discussed with the patient and her . The patient has been told in the past that she has WBCs in her urine due to self-catheterization, but she has been instructed to not be started on antibiotics unless the culture grows a pathogen. Because the patient is tachycardic, I recommended that she be placed into observation for continued IV fluid, until she is feeling better. She agreed. Case discussed with Dr. Schulz at 22:37. He accepted the patient for placement into observation, and asked that I write bridge orders. Departure - Departure Time of Disposition: 22:41 Disposition: Refer to Observation Condition: Fair Clinical Impression: Influenza A, Tachycardia, Hypomagnesemia, Pyuria, Immunosuppressed due to chemotherapy - Discharge Information *PRESCRIPTION DRUG MONITORING PROGRAM REVIEWED*: Not Applicable *COPY OF PRESCRIPTION DRUG MONITORING REPORT IN PATIENT ADRIAN: Not Applicable Referrals: Marge Winn PA-C [Primary Care Provider] - Everette Ulloa MD [Ordering Only Provider] - Destin Guzmán MD [Ordering Only Provider] - - My Orders Last 24 Hours: My Active Orders 05/30/18 20:31 EKG Documentation Completion [RC] STAT Chest 1V Frontal [CR] Stat CULTURE URINE [RM] Stat Blood Culture x2 Reflex Set [OM.PC] Stat 05/30/18 20:45 CULTURE STREP A CONFIRMATION [RM] Stat STREP SCRN A RAPID W CULT CONF [RM] Stat 05/30/18 20:58 CULTURE BLOOD [BC] Stat 05/30/18 21:00 Implanted Port Access [RC] Q12HR 05/30/18 21:10 CULTURE BLOOD [BC] Stat 05/30/18 22:01 Orthostatic Vital Signs [RC] STAT - Assessment/Plan Last 24 Hours: My Active Orders 05/30/18 20:31 EKG Documentation Completion [RC] STAT Chest 1V Frontal [CR] Stat CULTURE URINE [RM] Stat Blood Culture x2 Reflex Set [OM.PC] Stat 05/30/18 20:45 CULTURE STREP A CONFIRMATION [RM] Stat STREP SCRN A RAPID W CULT CONF [RM] Stat 05/30/18 20:58 CULTURE BLOOD [BC] Stat 05/30/18 21:00 Implanted Port Access [RC] Q12HR 05/30/18 21:10 CULTURE BLOOD [BC] Stat 05/30/18 22:01 Orthostatic Vital Signs [RC] STAT
[2018-05-30] MEDS ORDERED: Sodium Chloride 0.9% 1,000 ML IV ONE (22:00)
[2018-05-30] MEDS ORDERED: Magnesium Sulfate/Water 2 GM in Premix Bag 1 BAG IV STA (22:00)
[2018-05-30] MEDS ORDERED: Oseltamivir 75 MG Cap PO STA (22:28)
[2018-05-31] MEDS ORDERED: Lactated Ringers 1,000 ML ONE (00:08)
[2018-05-31] MEDS ORDERED: Metoprolol Tartrate 5 MG/5 ML SDV IVPUSH PRN (00:42)
[2018-05-31] MEDS ORDERED: hydrALAZINE 20 MG/ML SDV IVPUSH PRN (00:42)
[2018-05-31] MEDS ORDERED: Vancomycin 500 MG SDV IV SCH (00:45)
[2018-05-31] MEDS ORDERED: Polyethylene Glycol 3350 Powder 17 GM Packet PO PRN (00:47)
[2018-05-31] MEDS ORDERED: Ibuprofen 600 MG Tab PO PRN (00:47)
[2018-05-31] MEDS ORDERED: Albuterol/Ipratropium 3.0-0.5 MG/3 ML Neb Soln NEB PRN (00:47)
[2018-05-31] MEDS ORDERED: Bisacodyl 5 MG Tab PO PRN (00:47)
[2018-05-31] MEDS ORDERED: Ondansetron 4 MG/2 ML SDV IV PRN (00:47)
[2018-05-31] MEDS ORDERED: Acetaminophen/HYDROcodone 325-5 MG Tab PO PRN (00:47)
[2018-05-31] MEDS ORDERED: HYDROmorphone 1 MG/ML Syringe IVPUSH PRN (00:47)
[2018-05-31] MEDS ORDERED: Temazepam 7.5 MG Cap PO PRN (00:47)
[2018-05-31] MEDS ORDERED: LORazepam 2 MG/ML SDV IV PRN (00:47)
[2018-05-31] MEDS ORDERED: SUCRALFATE 1 GM PO PRN (00:55)
[2018-05-31] MEDS ORDERED: Ondansetron 4 MG Tab.DIS PO PRN (00:55)
[2018-05-31] MEDS ORDERED: Piperacillin/Tazobactam 4.5 GM in Sodium Chloride 0.9% 100 ML IV ONE (01:00)
[2018-05-31] MEDS ORDERED: Meropenem 1 GM in Sodium Chloride 0.9% 100 ML IV SCH (01:00)
--- NOTE | 2018-05-31 01:20 | PCM.SN ---
- Free Text/Narrative Note: Patient is a 38 yo young female with a hx/o IBD on Entyvio and HL S/p Stem Cell Transplant/Chemotherapy on Keytudra. 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 On presentation, she has an elevated WBC level of 10.26K with Neutrophils of 73% . She is afebrile but her heart rate runs int he upper 120s-140s. Her documented blood pressures are 89/62 and 85/60 mmHg with a RR of 24. She is clinically ill and obviously meet criteria for Sepsis as well as Critical Illness Adrenal Insufficiency. Appropriate treatment/management plan has been ordered for her after night charge nurse alerted me for sepsis alert.
[2018-05-31] MEDS ORDERED: Sodium Chloride 0.9% 100 ML ONE (01:29)
[2018-05-31] MEDS: Meropenem Premix 500 MG in Premix Bag 1 BAG IV SCH ×4 (01:34→21:04)
[2018-05-31] MEDS: Sodium Chloride 0.9% 1,000 ML IV SCH ×6 (02:03→16:32)
[2018-05-31] MEDS: Dicyclomine 10 MG Cap PO PRN ×3 (02:28→23:36)
[2018-05-31] MEDS: Gabapentin 300 MG Cap PO SCH ×4 (02:28→20:35)
[2018-05-31] MEDS: Gabapentin 100 MG Cap PO SCH ×4 (02:28→20:35)
[2018-05-31] MEDS: Potassium Chloride 20 MEQ Tab.ER PO SCH ×2 (02:29→09:34)
[2018-05-31] MEDS: Hydrocortisone Sodium Succinate 100 MG/2 ML SDV IVPUSH SCH ×4 (02:32→21:00)
--- NOTE | 2018-05-31 07:10 | CR ---
Chest: Portable view of the chest was obtained. Comparison: Prior chest x-ray of 06/23/17. Right-sided infusion catheter is seen. Heart size and mediastinum are normal. Lungs are clear. Bony structures are grossly intact. Impression: 1. Right sided infusion catheter. 2. Nothing acute is appreciated on portable chest x-ray. Diagnostic code #2
[2018-05-31] MEDS ORDERED: Norepinephrine 4 MG in Dextrose 5% in Water 246 ML IV SCH ×2 (08:30)
--- NOTE | 2018-05-31 08:36 | CR ---
Chest: Frontal view of the chest was obtained. Comparison: Prior chest x-ray of 05/30/18. Heart size and mediastinum are normal. Lungs are clear with no acute parenchymal change. Right sided infusion catheter is seen. Bony structures are grossly intact. Impression: 1. Stable chest x-ray. Nothing acute is appreciated. Diagnostic code #2
[2018-05-31] MEDS ORDERED: Piperacillin/Tazobactam 4.5 GM in Sodium Chloride 0.9% 100 ML IV SCH (09:00)
[2018-05-31] MEDS ORDERED: Potassium Chloride 20 MEQ Tab.ER PO SCH (09:00)
[2018-05-31] MEDS: Saccharomyces Boulardii (Probiotic) 250 MG Cap PO SCH ×2 (09:22→20:35)
[2018-05-31] MEDS: Oseltamivir 75 MG Cap PO SCH ×2 (09:24→20:35)
[2018-05-31] MEDS: Enoxaparin 40 MG/0.4 ML Syringe SUBCUT SCH (09:31)
[2018-05-31] MEDS: Piperacillin/Tazobactam 4.5 GM in Sodium Chloride 0.9% 100 ML IV SCH ×2 (09:47→16:55)
[2018-05-31] MEDS: Ascorbic Acid 500 MG Tab PO SCH (10:51)
[2018-05-31] MEDS: Midodrine 5 MG Tab PO PRN (10:58)
[2018-05-31] MEDS ORDERED: Phenol 1.4% Oral Spray 177 ML Bottle MUCMEM PRN (11:18)
[2018-05-31] MEDS: Benzocaine/Cetylpyridinium/Menthol Lozenge MUCMEM PRN (11:55)
--- NOTE | 2018-05-31 21:23 | PCM.HP ---
H&P History of Present Illness - General Date of Service: 05/31/18 Admit Problem/Dx: Admission Diagnosis/Problem Admission Diagnosis/Problem Influenza due to influenza A virus Source of Information: Patient, Old Records, RN Notes Reviewed History Limitations: Reports: Physical Impairment - History of Present Illness Initial Comments - Free Text/Narative: This is a 28 yo young white female with past medical hx/o IBD on Entyvio, Hodgkin Lymphoma S/p Autologous Stem Cell Transplant in 2006 and Chemotherapy on Keytudra, Urinary Retention, Transverse Myelitis, Hyperthyroidism, Anemia of Chronic Disease and Immunosuppression who comes in for evaluation of fever as high at 104.6 associated with nausea, bloody diarrhea, dyspnea, sore throat, wet cough with greenish sputum and chest soreness from coughing that started yesterday morning. She took some Tylenol and NSAIDs but felt her symptoms did not improve. She reports similar symptoms in the past wherein she was diagnosed with acute flare up of Crohn's Disease. Upon presentation to ED, she had a documented BP of 89/62 mmHg with a heart rate of 141 bpm. Her initial work up shows a CBC remarkable for WBC of 10.26, Hgb of 11.1, MCH of 25.4, MCHC of 30.7, Platelet of 370, MPV of 8.3, Neutrophils of 73%, and Lymphocytes of 18%. Her chemistry is significant for AG of 15.5, Mg of 1.6, Alkaline Phos of 171, and Albumin of 2.5. Her UA is suggestive of UTI. Influenza screening is positive for flu A. Bilateral Lower Leg Pain Score (Numeric/FACES): 4 - Related Data Allergies/Adverse Reactions: Allergies Allergy/AdvReac Type Severity Reaction Status Date / Time brentuximab vedotin Allergy Difficulty Verified 06/23/17 19:13 Breathing Home Medications: Home Meds Promethazine HCl [Phenergan] 25 mg TOP Q6H PRN 03/17/16 [History] medroxyPROGESTERone Acetate [Depo-Provera] 150 mg IM ASDIRECTED 03/17/16 [ History] Gabapentin [Neurontin] 400 mg PO TID 06/23/17 [History] Ondansetron [Zofran ODT] 8 mg PO Q8HR PRN 06/23/17 [History] Ascorbic Acid [Vitamin C] 1,000 mg PO DAILY 05/30/18 [History] Bisacodyl [Dulcolax] 10 mg RC ASDIRECTED PRN 05/30/18 [History] Budesonide [Budesonide EC] 12 mg PO DAILY 05/30/18 [History] Dicyclomine HCl [Bentyl] 10 mg PO Q6HR PRN 05/30/18 [History] Estrogens, Conjugated [Premarin Vaginal Crm] 1 applic VAG MOWEFR 05/30/18 [ History] Sucralfate 1 gm PO QID 05/30/18 [History] Potassium 2 tab PO DAILY 05/31/18 [History] Psyllium Husk [Psyllium Fiber] 3 cap PO TID 05/31/18 [History] Methenamine Hippurate [Hiprex] 1 gram PO DAILY 06/02/18 [History] Past Medical History HEENT History: Reports: None Cardiovascular History: Reports: None Respiratory History: Reports: Pneumonia, Recurrent, Other (See Below) 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 Gastrointestinal History: Reports: Inflammatory Bowel Disease Other Gastrointestinal History: Crohn's disease Genitourinary History: Reports: Neurogenic Bladder, Renal Calculus, Retention, Urinary, Other (See Below) Other Genitourinary History: self cath at home 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 - Infectious Disease History Infectious Disease History: Reports: Chicken Pox, Influenza - Past Surgical History HEENT Surgical History: Reports: Oral Surgery, Tonsillectomy GI Surgical History: Reports: Colonoscopy, EGD Oncologic Surgical History: Reports: Bone Marrow Transplant, Other (See Below) Other Oncologic Surgeries/Procedures: stem cell transplant Social & Family History - Family History Family Medical History: Noncontributory Cardiac: Reports: [place] Endocrine/Metabolic: Reports: Diabetes, Type I Oncologic: Reports: Breast - Tobacco Use Smoking Status *Q: Never Smoker Second Hand Smoke Exposure: No - Caffeine Use Caffeine Use: Reports: Coffee - Recreational Drug Use Recreational Drug Use: No - Living Situation & Occupation Living situation: Reports: , with Spouse, with Family (2 kids) Occupation: Unemployed H&P Review of Systems - Review of Systems: Review Of Systems: See Below General: Reports: Fever, Fatigue HEENT: Reports: Sore Throat. Denies: Contact Lenses, Dysphasia, Ear Pain, Eye Pain, Headaches, Rhinitis, Sinus Congestion, Visual Changes Pulmonary: Reports: Cough, Sputum. Denies: Shortness of Breath, Pleuritic Chest Pain Cardiovascular: Reports: Dyspnea on Exertion, Other (chest soreness). Denies: Chest Pain, Orthopnea, Lightheadedness, Syncope, Claudication, Blood Pressure Problem Gastrointestinal: Reports: Bloody Stool, Nausea. Denies: Abdominal Pain, Vomiting Genitourinary: Reports: Retention Musculoskeletal: Reports: No Symptoms Skin: Denies: Cyanosis, Mottled, Pallor, Diaphoresis, Bruising, Rash, Erythema, Lesions Psychiatric: Denies: Confusion, Depression, Anxiety, Agitation, Hallucinations Neurological: Denies: Dizziness, Headache, Numbness, Pre-Existing Deficit, Seizure, Syncope, Tingling, Tremors, Difficulty Walking, Weakness, Change in Speech, Gait Disturbance Hematologic/Lymphatic: Reports: Anemia Immunologic: Reports: No Symptoms Exam - Exam Exam: See Below - Vital Signs Vital Signs: Last Vital Signs Temp 36.4 C 05/31/18 16:00 Pulse 93 05/31/18 09:58 Resp 16 05/31/18 16:00 BP 101/72 05/31/18 16:00 Pulse Ox 95 05/31/18 16:44 Orthostatic Blood Pressure [ 87/62 Standing] Orthostatic Blood Pressure [ 89/63 Sitting] Orthostatic Blood Pressure [ 89/57 Supine] Weight: 53.977 kg - Exam General: Alert, Oriented, Cooperative, Moderate Distress HEENT: Conjunctiva Clear, Nares Patent, Normal Nasal Septum, Posterior Pharynx Clear, Pupils Equal, Pupils Reactive Neck: Supple, Trachea Midline, +2 Carotid Pulse wo Bruit Lungs: Clear to Auscultation, Normal Respiratory Effort Cardiovascular: Regular Rate, Regular Rhythm, Other (anterior chest with port-a- cath access line) GI/Abdominal Exam: Normal Bowel Sounds, Soft, Non-Tender, No Organomegaly, No Distention, No Abnormal Bruit, No Mass (Female) Exam: Other (indwelling whitney catheter) Rectal (Female) Exam: Deferred Back Exam: Normal Inspection, Full Range of Motion Extremities: Normal Inspection, Normal Range of Motion, Non-Tender, No Pedal Edema, Normal Capillary Refill Peripheral Pulses: 2+: Posterior Tibial (L), Posterior Tibial (R), Dorsalis Pedis (L), Dorsalis Pedis (R) Skin: Warm, Dry, Intact Neuro Extensive - Mental Status: Oriented x3, Normal Cognition, Memory Intact Neuro Extensive - Motor, Sensory, Reflexes: CN II-XII Intact, Normal Gait Psychiatric: Alert, Normal Affect, Normal Mood - Patient Data Lab Results Last 24 hrs: Laboratory Results - last 24 hr 05/30/18 05/30/18 05/30/18 Range/Units 20:58 20:58 20:58 WBC 10.26 H (3.98-10.04) K/mm3 RBC 4.37 (3.98-5.22) M/mm3 Hgb 11.1 L (11.2-15.7) gm/L Hct 36.2 (34.1-44.9) % MCV 82.8 (79.4-94.8) fl MCH 25.4 L (25.6-32.2) pg MCHC 30.7 L (32.2-35.5) g/dl RDW Std Deviation 45.5 (36.4-46.3) fL Plt Count 370 H (182-369) K/mm3 MPV 8.3 L (9.4-12.3) fl Neut % (Auto) (34.0-71.1) % Lymph % (Auto) (19.3-51.7) % Shannon % (Auto) (4.7-12.5) % Eos % (Auto) (0.7-5.8) Baso % (Auto) (0.1-1.2) % Neut # (Auto) (1.56-6.13) K/mm3 Lymph # (Auto) (1.18-3.74) K/mm3 Shannon # (Auto) (0.24-0.36) K/mm3 Eos # (Auto) (0.04-0.36) K/mm3 Baso # (Auto) (0.01-0.08) K/mm3 Neutrophils % (Manual) 73 H (40-60) % Band Neutrophils % 2 (0-10) % Lymphocytes % (Manual) 18 L (20-40) % Atypical Lymphs % 0 % Monocytes % (Manual) 5 (2-10) % Eosinophils % (Manual) 1 (0.7-5.8) % Basophils % (Manual) 0 L (0.1-1.2) Myelocytes % 1 Manual Slide Review Platelet Estimate Adequate RBC Morph Comment Normal ESR (0-20) mm/hr Sodium 137 (136-145) mEq/L Potassium 3.5 (3.5-5.1) mEq/L Chloride 102 (98-107) mEq/L Carbon Dioxide 23 (21-32) mEq/L Anion Gap 15.5 H (5-15) BUN 10 (7-18) mg/dL Creatinine 1.0 (0.55-1.02) mg/dL Est Cr Clr Drug Dosing 71.37 mL/min Estimated GFR (MDRD) > 60 (>60) mL/min BUN/Creatinine Ratio 10.0 L (14-18) Glucose 98 (74-106) mg/dL Lactic Acid 0.8 (0.4-2.0) mmol/L Calcium 8.9 (8.5-10.1) mg/dL Magnesium 1.6 L (1.8-2.4) mg/dl Total Bilirubin 0.3 (0.2-1.0) mg/dL AST 16 (15-37) U/L ALT 45 (14-59) U/L Alkaline Phosphatase 171 H (46-116) U/L C-Reactive Protein (<1.0) mg/dL Total Protein 6.9 (6.4-8.2) g/dl Albumin 2.5 L (3.4-5.0) g/dl Globulin 4.4 gm/dL Albumin/Globulin Ratio 0.6 L (1-2) Procalcitonin (<0.10) ng/mL HCG, Qual (NEGATIVE) Cortisol ug/dL Urine Color (Yellow) Urine Appearance (Clear) Urine pH (5.0-8.0) Ur Specific [place] (1.005-1.030) Urine Protein (Negative) Urine Glucose (UA) (Negative) Urine Ketones (Negative) Urine Occult Blood (Negative) Urine Nitrite (Negative) Urine Bilirubin (Negative) Urine Urobilinogen (0.2-1.0) Ur Leukocyte Esterase (Negative) Urine RBC (0-5) /hpf Urine WBC (0-5) /hpf Ur Epithelial Cells (0-5) /hpf Urine Bacteria (FEW) /hpf Urine Mucus (FEW) /hpf Mycoplasma pneumon IgM (NEGATIVE) 05/30/18 05/30/18 05/30/18 Range/Units 20:58 20:58 21:40 WBC (3.98-10.04) K/mm3 RBC (3.98-5.22) M/mm3 Hgb (11.2-15.7) gm/L Hct (34.1-44.9) % MCV (79.4-94.8) fl MCH (25.6-32.2) pg MCHC (32.2-35.5) g/dl RDW Std Deviation (36.4-46.3) fL Plt Count (182-369) K/mm3 MPV (9.4-12.3) fl Neut % (Auto) (34.0-71.1) % Lymph % (Auto) (19.3-51.7) % Shannon % (Auto) (4.7-12.5) % Eos % (Auto) (0.7-5.8) Baso % (Auto) (0.1-1.2) % Neut # (Auto) (1.56-6.13) K/mm3 Lymph # (Auto) (1.18-3.74) K/mm3 Shannon # (Auto) (0.24-0.36) K/mm3 Eos # (Auto) (0.04-0.36) K/mm3 Baso # (Auto) (0.01-0.08) K/mm3 Neutrophils % (Manual) (40-60) % Band Neutrophils % (0-10) % Lymphocytes % (Manual) (20-40) % Atypical Lymphs % % Monocytes % (Manual) (2-10) % Eosinophils % (Manual) (0.7-5.8) % Basophils % (Manual) (0.1-1.2) Myelocytes % Manual Slide Review Platelet Estimate RBC Morph Comment ESR (0-20) mm/hr Sodium (136-145) mEq/L Potassium (3.5-5.1) mEq/L Chloride (98-107) mEq/L Carbon Dioxide (21-32) mEq/L Anion Gap (5-15) BUN (7-18) mg/dL Creatinine (0.55-1.02) mg/dL Est Cr Clr Drug Dosing mL/min Estimated GFR (MDRD) (>60) mL/min BUN/Creatinine Ratio (14-18) Glucose (74-106) mg/dL Lactic Acid (0.4-2.0) mmol/L Calcium (8.5-10.1) mg/dL Magnesium (1.8-2.4) mg/dl Total Bilirubin (0.2-1.0) mg/dL AST (15-37) U/L ALT (14-59) U/L Alkaline Phosphatase (46-116) U/L C-Reactive Protein (<1.0) mg/dL Total Protein (6.4-8.2) g/dl Albumin (3.4-5.0) g/dl Globulin gm/dL Albumin/Globulin Ratio (1-2) Procalcitonin (<0.10) ng/mL HCG, Qual Negative (NEGATIVE) Cortisol ug/dL Urine Color Yellow (Yellow) Urine Appearance Cloudy H (Clear) Urine pH 6.5 (5.0-8.0) Ur Specific [place] 1.020 (1.005-1.030) Urine Protein 2+ H (Negative) Urine Glucose (UA) Negative (Negative) Urine Ketones Trace H (Negative) Urine Occult Blood 2+ H (Negative) Urine Nitrite Negative (Negative) Urine Bilirubin Negative (Negative) Urine Urobilinogen 0.2 (0.2-1.0) Ur Leukocyte Esterase 1+ H (Negative) Urine RBC 5-10 H (0-5) /hpf Urine WBC 75-100 H (0-5) /hpf Ur Epithelial Cells 5-10 H (0-5) /hpf Urine Bacteria Few (FEW) /hpf Urine Mucus Many H (FEW) /hpf Mycoplasma pneumon IgM Negative (NEGATIVE) 05/31/18 05/31/18 05/31/18 Range/Units 02:10 02:10 06:42 WBC 6.55 (3.98-10.04) K/mm3 RBC 3.30 L (3.98-5.22) M/mm3 Hgb 8.5 L (11.2-15.7) gm/L Hct 27.9 L (34.1-44.9) % MCV 84.5 (79.4-94.8) fl MCH 25.8 (25.6-32.2) pg MCHC 30.5 L (32.2-35.5) g/dl RDW Std Deviation 45.8 (36.4-46.3) fL Plt Count 251 (182-369) K/mm3 MPV 8.1 L (9.4-12.3) fl Neut % (Auto) 80.2 H (34.0-71.1) % Lymph % (Auto) 12.8 L (19.3-51.7) % Shannon % (Auto) 6.3 (4.7-12.5) % Eos % (Auto) 0 L (0.7-5.8) Baso % (Auto) 0.2 (0.1-1.2) % Neut # (Auto) 5.26 (1.56-6.13) K/mm3 Lymph # (Auto) 0.84 L (1.18-3.74) K/mm3 Shannon # (Auto) 0.41 H (0.24-0.36) K/mm3 Eos # (Auto) 0.00 L (0.04-0.36) K/mm3 Baso # (Auto) 0.01 (0.01-0.08) K/mm3 Neutrophils % (Manual) (40-60) % Band Neutrophils % (0-10) % Lymphocytes % (Manual) (20-40) % Atypical Lymphs % % Monocytes % (Manual) (2-10) % Eosinophils % (Manual) (0.7-5.8) % Basophils % (Manual) (0.1-1.2) Myelocytes % Manual Slide Review Abnormal smear Platelet Estimate RBC Morph Comment ESR (0-20) mm/hr Sodium (136-145) mEq/L Potassium (3.5-5.1) mEq/L Chloride (98-107) mEq/L Carbon Dioxide (21-32) mEq/L Anion Gap (5-15) BUN (7-18) mg/dL Creatinine (0.55-1.02) mg/dL Est Cr Clr Drug Dosing mL/min Estimated GFR (MDRD) (>60) mL/min BUN/Creatinine Ratio (14-18) Glucose (74-106) mg/dL Lactic Acid (0.4-2.0) mmol/L Calcium (8.5-10.1) mg/dL Magnesium (1.8-2.4) mg/dl Total Bilirubin (0.2-1.0) mg/dL AST (15-37) U/L ALT (14-59) U/L Alkaline Phosphatase (46-116) U/L C-Reactive Protein (<1.0) mg/dL Total Protein (6.4-8.2) g/dl Albumin (3.4-5.0) g/dl Globulin gm/dL Albumin/Globulin Ratio (1-2) Procalcitonin 0.28 H (<0.10) ng/mL HCG, Qual (NEGATIVE) Cortisol 12.3 ug/dL Urine Color (Yellow) Urine Appearance (Clear) Urine pH (5.0-8.0) Ur Specific Zenda (1.005-1.030) Urine Protein (Negative) Urine Glucose (UA) (Negative) Urine Ketones (Negative) Urine Occult Blood (Negative) Urine Nitrite (Negative) Urine Bilirubin (Negative) Urine Urobilinogen (0.2-1.0) Ur Leukocyte Esterase (Negative) Urine RBC (0-5) /hpf Urine WBC (0-5) /hpf Ur Epithelial Cells (0-5) /hpf Urine Bacteria (FEW) /hpf Urine Mucus (FEW) /hpf Mycoplasma pneumon IgM (NEGATIVE) 05/31/18 05/31/18 05/31/18 Range/Units 06:42 06:42 06:42 WBC (3.98-10.04) K/mm3 RBC (3.98-5.22) M/mm3 Hgb (11.2-15.7) gm/L Hct (34.1-44.9) % MCV (79.4-94.8) fl MCH (25.6-32.2) pg MCHC (32.2-35.5) g/dl RDW Std Deviation (36.4-46.3) fL Plt Count (182-369) K/mm3 MPV (9.4-12.3) fl Neut % (Auto) (34.0-71.1) % Lymph % (Auto) (19.3-51.7) % Shannon % (Auto) (4.7-12.5) % Eos % (Auto) (0.7-5.8) Baso % (Auto) (0.1-1.2) % Neut # (Auto) (1.56-6.13) K/mm3 Lymph # (Auto) (1.18-3.74) K/mm3 Shannon # (Auto) (0.24-0.36) K/mm3 Eos # (Auto) (0.04-0.36) K/mm3 Baso # (Auto) (0.01-0.08) K/mm3 Neutrophils % (Manual) (40-60) % Band Neutrophils % (0-10) % Lymphocytes % (Manual) (20-40) % Atypical Lymphs % % Monocytes % (Manual) (2-10) % Eosinophils % (Manual) (0.7-5.8) % Basophils % (Manual) (0.1-1.2) Myelocytes % Manual Slide Review Platelet Estimate RBC Morph Comment ESR 55 H (0-20) mm/hr Sodium 144 (136-145) mEq/L Potassium 3.6 (3.5-5.1) mEq/L Chloride 111 H (98-107) mEq/L Carbon Dioxide 21 (21-32) mEq/L Anion Gap 15.6 H (5-15) BUN 7 (7-18) mg/dL Creatinine 0.8 (0.55-1.02) mg/dL Est Cr Clr Drug Dosing 89.21 mL/min Estimated GFR (MDRD) > 60 (>60) mL/min BUN/Creatinine Ratio 8.8 L (14-18) Glucose 110 H (74-106) mg/dL Lactic Acid 0.7 (0.4-2.0) mmol/L Calcium 7.3 L (8.5-10.1) mg/dL Magnesium 1.7 L (1.8-2.4) mg/dl Total Bilirubin (0.2-1.0) mg/dL AST (15-37) U/L ALT (14-59) U/L Alkaline Phosphatase (46-116) U/L C-Reactive Protein 19.8 H* (<1.0) mg/dL Total Protein (6.4-8.2) g/dl Albumin (3.4-5.0) g/dl Globulin gm/dL Albumin/Globulin Ratio (1-2) Procalcitonin (<0.10) ng/mL HCG, Qual (NEGATIVE) Cortisol ug/dL Urine Color (Yellow) Urine Appearance (Clear) Urine pH (5.0-8.0) Ur Specific Zenda (1.005-1.030) Urine Protein (Negative) Urine Glucose (UA) (Negative) Urine Ketones (Negative) Urine Occult Blood (Negative) Urine Nitrite (Negative) Urine Bilirubin (Negative) Urine Urobilinogen (0.2-1.0) Ur Leukocyte Esterase (Negative) Urine RBC (0-5) /hpf Urine WBC (0-5) /hpf Ur Epithelial Cells (0-5) /hpf Urine Bacteria (FEW) /hpf Urine Mucus (FEW) /hpf Mycoplasma pneumon IgM (NEGATIVE) Result Diagrams: 06/02/18 05:35 06/02/18 05:35 Luís Results Last 24 hrs: Microbiology 05/30/18 20:58 Aerobic Blood Culture - Preliminary Blood - Port-A-Cath NO GROWTH AFTER 1 DAY Anaerobic Blood Culture - Preliminary NO GROWTH AFTER 1 DAY 05/30/18 21:10 Aerobic Blood Culture - Preliminary Blood - Venous - Lab Draw NO GROWTH AFTER 1 DAY Anaerobic Blood Culture - Preliminary NO GROWTH AFTER 1 DAY 05/30/18 20:45 Quick Strep Confirmation Culture - Preliminary Throat Group A Streptococcus Rapid Screen - Final NEGATIVE STREP A SCREEN 05/30/18 20:31 Urine Culture - Preliminary Urine, Catheterized Gram Negative Rods 05/30/18 21:30 Influenza Type A Antigen Screen - Final Nasopharyngeal Swab Positive Influenza A Ag Influenza Type B Antigen Screen - Final NEGATIVE INFLUENZA B VIRUS AG Problem List Initiated/Reviewed/Updated: Yes Orders Last 24hrs: Active Orders 24 hr Category Date Time Status Admission Status [Patient Status] [ADT] Routine ADT 05/31/18 02:58 Active Patient Status [ADT] Routine ADT 05/31/18 07:09 Active Communication Order [RC] ASDIRECTED Care 05/31/18 15:41 Active Height and Weight [RC] 04 Care 05/31/18 00:47 Active Implanted Port Access [RC] DAILY Care 05/30/18 21:00 Active Intake and Output [RC] Q2HR Care 05/31/18 00:47 Active Oxygen Therapy [RC] PRN Care 05/31/18 00:47 Active RT Aerosol Therapy [RC] ASDIRECTED Care 05/31/18 00:50 Active Up With Assistance [RC] ASDIRECTED Care 05/31/18 00:47 Active VTE/DVT Education [RC] DAILY Care 05/31/18 00:47 Active Vital Signs [RC] Q4HR Care 05/31/18 00:47 Active Consult to Case Management/Powder Line Repairer [CONS] Cons 05/31/18 00:47 Active Routine Consult to Dietary [Consult to Molded Grid And Parts Inspector] [CONS] Cons 05/31/18 08:40 Active Routine Consult to Molded Grid And Parts Inspector [CONS] Routine Cons 05/31/18 00:47 Active Consult to Spiritual Care [CONS] Routine Cons 05/31/18 00:47 Active Respiratory Care Assess and Treatment [CONS] Routine Cons 05/31/18 00:47 Active Regular Diet [DIET] Diet 05/31/18 Breakfast Active BASIC METABOLIC PANEL,BMP [CHEM] AM Lab 06/01/18 05:11 Ordered BASIC METABOLIC PANEL,BMP [CHEM] AM Lab 06/02/18 05:11 Ordered BASIC METABOLIC PANEL,BMP [CHEM] AM Lab 06/03/18 05:11 Ordered BASIC METABOLIC PANEL,BMP [CHEM] AM Lab 06/04/18 05:11 Ordered C-REACTIVE PROTEIN [CHEM] AM Lab 06/01/18 05:11 Ordered C-REACTIVE PROTEIN [CHEM] AM Lab 06/02/18 05:11 Ordered C-REACTIVE PROTEIN [CHEM] AM Lab 06/03/18 05:11 Ordered C-REACTIVE PROTEIN [CHEM] AM Lab 06/04/18 05:11 Ordered CBC WITH AUTO DIFF [HEME] AM Lab 06/01/18 05:11 Ordered CBC WITH AUTO DIFF [HEME] AM Lab 06/02/18 05:11 Ordered CBC WITH AUTO DIFF [HEME] AM Lab 06/03/18 05:11 Ordered CBC WITH AUTO DIFF [HEME] AM Lab 06/04/18 05:11 Ordered CULTURE BLOOD [BC] Stat Lab 05/30/18 20:58 Results CULTURE BLOOD [BC] Stat Lab 05/30/18 21:10 Results CULTURE SPUTUM + SMEAR [RM] Stat Lab 05/31/18 00:47 Ordered CULTURE STREP A CONFIRMATION [RM] Stat Lab 05/30/18 20:45 Results CULTURE URINE [RM] Stat Lab 05/30/18 20:31 Results MAGNESIUM [CHEM] AM Lab 06/01/18 05:11 Ordered MAGNESIUM [CHEM] AM Lab 06/02/18 05:11 Ordered MAGNESIUM [CHEM] AM Lab 06/03/18 05:11 Ordered MAGNESIUM [CHEM] AM Lab 06/04/18 05:11 Ordered RESPIRATORY PANEL Stat Lab 05/31/18 09:54 Received STREP PNEUMONIAE ANTIGEN [MREF] Stat Lab 05/30/18 20:31 Received STREP SCRN A RAPID W CULT CONF [RM] Stat Lab 05/30/18 20:45 Results VANCOMYCIN TROUGH [CHEM] Timed Lab 06/01/18 10:30 Ordered Acetaminophen/HYDROcodone [Anson 325-5 MG] Med 05/31/18 00:47 Active 1 tab PO Q4H PRN Albuterol/Ipratropium [DuoNeb 3.0-0.5 MG/3 ML] Med 05/31/18 00:47 Active 3 ml NEB Q4H PRN Ascorbic Acid [Vitamin C] Med 05/31/18 09:00 Active 1,000 mg PO DAILY Benzocaine/Cetylpyrd/Menthol [Cepacol Sore Throat] Med 05/31/18 11:16 Active 1 lozenge MUCMEM Q6H PRN Bisacodyl [Dulcolax] Med 05/31/18 00:47 Active 5 mg PO DAILY PRN Dextromethorphan/guaiFENesin [Robitussin DM] Med 05/31/18 01:01 Active 10 ml PO Q4H PRN Dicyclomine [Bentyl] Med 05/31/18 00:55 Active 10 mg PO Q6H PRN Docusate Sodium/Sennosides [Senna Plus] Med 05/31/18 00:47 Active 1 tab PO BID PRN Enoxaparin [Lovenox] Med 05/31/18 09:00 Active 40 mg SUBCUT DAILY Gabapentin [Neurontin] Med 05/31/18 09:00 Active 100 mg PO TID Gabapentin [Neurontin] Med 05/31/18 09:00 Active 300 mg PO TID HYDROmorphone [Dilaudid] Med 05/31/18 00:47 Active 0.25 mg IVPUSH Q2H PRN Hydrocortisone Sod Succinate [Solu-CORTEF] Med 05/31/18 02:00 Active 100 mg IVPUSH Q6H Ibuprofen [Motrin] Med 05/31/18 00:47 Active 600 mg PO Q6H PRN LORazepam [Ativan] Med 05/31/18 00:47 Active 1 mg IV Q6H PRN Meropenem Premix [Meropenem] 500 mg Med 05/31/18 02:00 Active Premix Bag 1 bag IV Q6H Metoprolol Tartrate [Lopressor] Med 05/31/18 00:42 Active 5 mg IVPUSH Q4H PRN Midodrine Med 05/31/18 09:29 Active 5 mg PO TIDAC PRN Norepinephrine [Levophed] 4 mg Med 05/31/18 08:30 Active Dextrose 5% in Water 246 ml IV TITRATE Ondansetron [Zofran ODT] Med 05/31/18 00:55 Active 8 mg PO Q8H PRN Ondansetron [Zofran] Med 05/31/18 00:47 Active 4 mg IV Q6H PRN Oseltamivir [Tamiflu] Med 05/31/18 09:00 Active 75 mg PO BID Pharmacy to Dose - Magnesium R [Pharmacy to Dose - Med 05/31/18 00:45 Active Magnesium Replacement] 1 dose .XX ASDIRECTED Pharmacy to Dose - Potassium R [Pharmacy to Dose - Med 05/31/18 00:45 Active Potassium Replacement] 1 dose .XX ASDIRECTED Pharmacy to Dose - Vancomycin Med 05/31/18 01:00 Active 1 dose .XX ASDIRECTED Phenol [Chloraseptic Throat [place]] Med 05/31/18 11:18 Active 0 ml MUCMEM Q6H PRN Piperacillin/Tazobactam [Piperacil-Tazobact] 4.5 gm Med 05/31/18 09:10 Active Sodium Chloride 0.9% [Normal Saline] 100 ml IV Q8H Polyethylene Glycol 3350 [MiraLAX] Med 05/31/18 00:47 Active 17 gm PO DAILY PRN Potassium Chloride [Klor-Con M20] Med 05/31/18 09:00 Active 20 meq PO DAILY Saccharomyces Boulardii [Florastor] Med 05/31/18 09:00 Active 500 mg PO BID Sodium Chloride 0.9% [Normal Saline] 1,000 ml Med 05/31/18 01:00 Active IV ASDIRECTED Temazepam [Restoril] Med 05/31/18 00:47 Active 7.5 mg PO BEDTIME PRN Vancomycin 750 mg Med 05/31/18 11:00 Active Sodium Chloride 0.9% [Normal Saline] 250 ml IV Q8H hydrALAZINE [Apresoline] Med 05/31/18 00:42 Active 20 mg IVPUSH Q4H PRN Blood Culture x2 Reflex Set [OM.PC] Stat Oth 05/30/18 20:31 Ordered Resuscitation Status Routine Resus Stat 05/31/18 00:47 Ordered Medication Orders Hydrocodone Bitart/Acetaminophen ([place] 325-5 Mg) 1 tab PO Q4H PRN PRN Reason: Pain (moderate 4-6) Albuterol/Ipratropium (Duoneb 3.0-0.5 Mg/3 Ml) 3 ml NEB Q4H PRN PRN Reason: Shortness Of Breath/wheezing Ascorbic Acid (Vitamin C) 1,000 mg PO DAILY [facility] Last Admin: 05/31/18 10:51 Dose: 1,000 mg Benzocaine/Menthol (Cepacol Sore Throat) 1 lozenge MUCMEM Q6H PRN PRN Reason: Sore Throat Last Admin: 05/31/18 11:55 Dose: 1 lozenge Bisacodyl (Dulcolax) 5 mg PO DAILY PRN PRN Reason: Constipation Dicyclomine HCl (Bentyl) 10 mg PO Q6H PRN PRN Reason: Abdominal Pain Last Admin: 05/31/18 17:35 Dose: 10 mg Admin: 05/31/18 02:28 Dose: 10 mg Enoxaparin Sodium (Lovenox) 40 mg SUBCUT DAILY [facility] Last Admin: 05/31/18 09:31 Dose: 40 mg Gabapentin (Neurontin) 300 mg PO TID [facility] Last Admin: 05/31/18 20:35 Dose: 300 mg Admin: 05/31/18 16:44 Dose: 300 mg Admin: 05/31/18 09:21 Dose: 300 mg Admin: 05/31/18 02:28 Dose: 300 mg Gabapentin (Neurontin) 100 mg PO TID [facility] Last Admin: 05/31/18 20:35 Dose: 100 mg Admin: 05/31/18 16:44 Dose: 100 mg Admin: 05/31/18 09:21 Dose: 100 mg Admin: 05/31/18 02:28 Dose: 100 mg Guaifenesin/Phenylephrine HCl (Robitussin Dm) 10 ml PO Q4H PRN PRN Reason: Cough Hydralazine HCl (Apresoline) 20 mg IVPUSH Q4H PRN PRN Reason: Hypertension Hydrocortisone Sodium Succinate (Solu-Cortef) 100 mg IVPUSH Q6H [facility] Last Admin: 05/31/18 21:00 Dose: 100 mg Admin: 05/31/18 13:38 Dose: 100 mg Admin: 05/31/18 09:19 Dose: 100 mg Admin: 05/31/18 02:32 Dose: 100 mg Hydromorphone HCl (Dilaudid) 0.25 mg IVPUSH Q2H PRN PRN Reason: Pain (severe 7-10) Meropenem/Sodium Chloride 500 (mg/ Premix) 50 mls @ 100 mls/hr IV Q6H [facility] Last Admin: 05/31/18 21:04 Dose: 100 mls/hr Infusion: 05/31/18 13:56 Dose: 100 mls/hr Admin: 05/31/18 13:26 Dose: 100 mls/hr Infusion: 05/31/18 09:44 Dose: 100 mls/hr Admin: 05/31/18 09:14 Dose: 100 mls/hr Infusion: 05/31/18 02:04 Dose: 100 mls/hr Admin: 05/31/18 01:34 Dose: 100 mls/hr Sodium Chloride (Normal Saline) 1,000 mls @ 125 mls/hr IV ASDIRECTED [facility] [facility] Last Admin: 05/31/18 16:32 Dose: 125 mls/hr Infusion: 05/31/18 16:21 Dose: 125 mls/hr Admin: 05/31/18 08:21 Dose: 125 mls/hr Vancomycin HCl 750 mg/ Sodium (Chloride) 250 mls @ 166.667 mls/hr IV Q8H [facility] Last Admin: 05/31/18 18:23 Dose: 166.667 mls/hr Infusion: 05/31/18 13:26 Dose: 166.667 mls/hr Admin: 05/31/18 11:56 Dose: 166.667 mls/hr Norepinephrine Bitartrate 4 mg (/ Dextrose/Water) 250 mls @ 7.5 mls/hr IV TITRATE [facility]; Protocol Piperacillin Sod/Tazobactam (Sod 4.5 gm/ Sodium Chloride) 100 mls @ 25 mls/hr IV Q8H [facility] Last Admin: 05/31/18 16:55 Dose: 25 mls/hr Infusion: 05/31/18 13:47 Dose: 25 mls/hr Admin: 05/31/18 09:47 Dose: 25 mls/hr Ibuprofen (Motrin) 600 mg PO Q6H PRN PRN Reason: Pain (moderate 4-6) Last Admin: 05/31/18 01:32 Dose: 600 mg Lorazepam (Ativan) 1 mg IV Q6H PRN PRN Reason: Anxiety Magnesium Sulfate (Pharmacy To Dose - Magnesium Replacement) 1 dose .XX ASDIRECTED [facility] Metoprolol Tartrate (Lopressor) 5 mg IVPUSH Q4H PRN PRN Reason: Tachycardia Midodrine (Midodrine) 5 mg PO TIDAC PRN PRN Reason: Hypotension Last Admin: 05/31/18 10:58 Dose: 5 mg Ondansetron HCl (Zofran) 4 mg IV Q6H PRN PRN Reason: Nausea/Vomiting Last Admin: 05/31/18 01:52 Dose: 4 mg Ondansetron HCl (Zofran Odt) 8 mg PO Q8H PRN PRN Reason: Nausea Oseltamivir Phosphate (Tamiflu) 75 mg PO BID [facility] Last Admin: 05/31/18 20:35 Dose: 75 mg Admin: 05/31/18 09:24 Dose: 75 mg Phenol/Menthol (Chloraseptic Throat [place]) 0 ml MUCMEM Q6H PRN PRN Reason: Sore Throat Polyethylene Glycol (Miralax) 17 gm PO DAILY PRN PRN Reason: Constipation Potassium Chloride (Pharmacy To Dose - Potassium Replacement) 1 dose .XX ASDIRECTED [facility] Potassium Chloride (Klor-Con M20) 20 meq PO DAILY [facility] Last Admin: 05/31/18 09:22 Dose: 20 meq Saccharomyces Boulardii (Florastor) 500 mg PO BID [facility] Last Admin: 05/31/18 20:35 Dose: 500 mg Admin: 05/31/18 09:22 Dose: 500 mg Senna/Docusate Sodium (Senna Plus) 1 tab PO BID PRN PRN Reason: Constipation Temazepam (Restoril) 7.5 mg PO BEDTIME PRN PRN Reason: Sleep Vancomycin HCl (Pharmacy To Dose - Vancomycin) 1 dose .XX ASDIRECTED [facility] Assessment/Plan Comment:: Assessment/Plan: Acute: Sepsis w/ Profound Hypotension - Suspect 2/2 UTI +/- Influenza and Possible Bronchial Infection due to her Immunosuppressed state - Admitted under OBS but started to clinically deteriorate midnight - WBC of 10.98; CRP is 19.8 - Pending Blood culture and Procalcitonin level - Sepsis Protocol (3 triple antibiotic) and fluid resuscitation Profound Hypotension - Cannot r/o Critical Illness Adrenal Insufficiency - Received adequate volume last night - She failed additional 2L of fluid challenge this AM - Cortisol level and will start Solucortef 100 mg IV Q6H - No requires levophed drip for pressure support - Titrate to keep MAp at or > 65 mmHg - Midrodine 5 mg po TID PRN for BP < 100/600 mmHg UTI - 2/2 CAUTI (Self Catheterization) - 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 She was clearly septic, requiring more attention. She received sepsis protocol with triple antibiotic along with aggressive fluid challenged and pressure support. Isolation precaution. DVT/GI PPx. She needs rest and adequate nutrition. Additional orders as above.
[2018-06-01] MEDS: Sodium Chloride 0.9% 1,000 ML IV SCH ×2 (01:28→08:53)
[2018-06-01] MEDS: Meropenem Premix 500 MG in Premix Bag 1 BAG IV SCH ×2 (01:29→08:15)
[2018-06-01] MEDS: Hydrocortisone Sodium Succinate 100 MG/2 ML SDV IVPUSH SCH (01:31)
[2018-06-01] MEDS: Piperacillin/Tazobactam 4.5 GM in Sodium Chloride 0.9% 100 ML IV SCH ×3 (01:35→16:55)
[2018-06-01] MEDS: guaiFENesin/Dextromethorphan 100-10 MG/5 ML Soln 5 ML Cup PO PRN ×2 (03:59→15:22)
[2018-06-01] MEDS: Benzocaine/Cetylpyridinium/Menthol Lozenge MUCMEM PRN (08:24)
[2018-06-01] MEDS: Ascorbic Acid 500 MG Tab PO SCH (08:24)
[2018-06-01] MEDS: Gabapentin 100 MG Cap PO SCH ×3 (08:25→21:12)
[2018-06-01] MEDS: Gabapentin 300 MG Cap PO SCH ×3 (08:25→21:12)
[2018-06-01] MEDS: Potassium Chloride 20 MEQ Tab.ER PO SCH ×2 (08:25→12:29)
[2018-06-01] MEDS: Dicyclomine 10 MG Cap PO PRN ×3 (08:25→21:14)
[2018-06-01] MEDS: Oseltamivir 75 MG Cap PO SCH ×2 (08:25→21:12)
[2018-06-01] MEDS: Enoxaparin 40 MG/0.4 ML Syringe SUBCUT SCH (08:26)
[2018-06-01] MEDS: Saccharomyces Boulardii (Probiotic) 250 MG Cap PO SCH ×2 (08:47→21:12)
[2018-06-01] MEDS ORDERED: Psyllium Husk Powder Sugar Free 3.4 GM Packet PO SCH (09:00)
[2018-06-01] MEDS ORDERED: Non-Formulary Medication 1 Each (Potassium [Potassium] 99 MG) PO SCH (09:00)
--- NOTE | 2018-06-01 09:13 | PCM.PN ---
- General Info Date of Service: 06/01/18 Admission Dx/Problem (Free Text): Admission Diagnosis/Problem Admission Diagnosis/Problem Influenza due to influenza A virus Subjective Update: Follow Up Functional Status: Reports: Pain Controlled, Tolerating Diet, Ambulating, Urinating. Denies: New Symptoms - Review of Systems General: Denies: Fever, Weakness, Fatigue, Malaise, Chills HEENT: Reports: No Symptoms Pulmonary: Reports: Cough, Sputum. Denies: Shortness of Breath Cardiovascular: Denies: Chest Pain, Dyspnea on Exertion, Lightheadedness Gastrointestinal: Reports: Diarrhea. Denies: Abdominal Pain, Decreased Appetite , Difficulty Swallowing, Nausea, Vomiting Genitourinary: Reports: Retention. Denies: Dysuria Musculoskeletal: Reports: No Symptoms Skin: Denies: Cyanosis, Pallor, Diaphoresis, Bruising Neurological: Denies: Confusion, Difficulty Walking, Weakness, Gait Disturbance Psychiatric: Denies: Depression, Anxiety, Agitation Systems Review Comment:: No overnight or acute issues. She rested well and has no complaints this AM. Hgb is 8.1 but no reports of bleeding. - Patient Data Vitals - Most Recent: Last Vital Signs Temp 36.7 C 06/01/18 08:00 Pulse 92 05/31/18 20:00 Resp 16 06/01/18 08:00 BP 98/71 06/01/18 08:00 Pulse Ox 97 06/01/18 08:00 Orthostatic Blood Pressure [ 87/62 Standing] Orthostatic Blood Pressure [ 89/63 Sitting] Orthostatic Blood Pressure [ 89/57 Supine] Weight - Most Recent: 58.014 kg I&O - Last 24 Hours: Intake & Output 05/31/18 06/01/18 06/01/18 22:59 06:59 14:59 Intake Total 4586 1650 45 Output Total 1600 1060 100 Balance 2986 590 -55 Lab Results Last 24 Hours: Laboratory Results - last 24 hr 05/31/18 05/31/18 05/31/18 Range/Units 02:10 02:10 09:54 WBC (3.98-10.04) K/mm3 RBC (3.98-5.22) M/mm3 Hgb (11.2-15.7) gm/L Hct (34.1-44.9) % MCV (79.4-94.8) fl MCH (25.6-32.2) pg MCHC (32.2-35.5) g/dl RDW Std Deviation (36.4-46.3) fL Plt Count (182-369) K/mm3 MPV (9.4-12.3) fl Neut % (Auto) (34.0-71.1) % Lymph % (Auto) (19.3-51.7) % [place] % (Auto) (4.7-12.5) % Eos % (Auto) (0.7-5.8) Baso % (Auto) (0.1-1.2) % Neut # (Auto) (1.56-6.13) K/mm3 Lymph # (Auto) (1.18-3.74) K/mm3 [place] # (Auto) (0.24-0.36) K/mm3 Eos # (Auto) (0.04-0.36) K/mm3 Baso # (Auto) (0.01-0.08) K/mm3 Manual Slide Review Sodium (136-145) mEq/L Potassium (3.5-5.1) mEq/L Chloride (98-107) mEq/L Carbon Dioxide (21-32) mEq/L Anion Gap (5-15) BUN (7-18) mg/dL Creatinine (0.55-1.02) mg/dL Est Cr Clr Drug Dosing mL/min Estimated GFR (MDRD) (>60) mL/min BUN/Creatinine Ratio (14-18) Glucose (74-106) mg/dL Calcium (8.5-10.1) mg/dL Magnesium (1.8-2.4) mg/dl C-Reactive Protein (<1.0) mg/dL Procalcitonin 0.28 H (<0.10) ng/mL Cortisol 12.3 ug/dL Adenovirus (PCR) Not detected (Not Detected) B. pertussis DNA (PCR) Not detected (Not Detected) B.parapertussis DNA PCR Not detected (Not Detected) C. pneumoniae DNA (PCR) Not detected (Not Detected) Coronavirus (PCR) Not detected (Not Detected) Human Metapneumovir PCR Not detected (Not Detected) Influ A (H1N1/09) PCR Detected H (Not Detected) Influenza B (RT-PCR) Not detected (Not Detected) M. pneumoniae (PCR) Not detected (Not Detected) Parainfluen 1,2,3,4 PCR Not detected (Not Detected) RSV (PCR) Not detected (Not Detected) Entero/Rhino (PCR) Not detected (Not Detected) 06/01/18 06/01/18 Range/Units 05:20 05:20 WBC 5.70 (3.98-10.04) K/mm3 RBC 3.21 L (3.98-5.22) M/mm3 Hgb 8.1 L (11.2-15.7) gm/L Hct 27.2 L (34.1-44.9) % MCV 84.7 (79.4-94.8) fl MCH 25.2 L (25.6-32.2) pg MCHC 29.8 L (32.2-35.5) g/dl RDW Std Deviation 46.5 H (36.4-46.3) fL Plt Count 232 (182-369) K/mm3 MPV 8.4 L (9.4-12.3) fl Neut % (Auto) 77.3 H (34.0-71.1) % Lymph % (Auto) 16.7 L (19.3-51.7) % [place] % (Auto) 5.6 (4.7-12.5) % Eos % (Auto) 0 L (0.7-5.8) Baso % (Auto) 0.0 L (0.1-1.2) % Neut # (Auto) 4.41 (1.56-6.13) K/mm3 Lymph # (Auto) 0.95 L (1.18-3.74) K/mm3 [place] # (Auto) 0.32 (0.24-0.36) K/mm3 Eos # (Auto) 0.00 L (0.04-0.36) K/mm3 Baso # (Auto) 0.00 L (0.01-0.08) K/mm3 Manual Slide Review Abnormal smear Sodium 143 (136-145) mEq/L Potassium 3.1 L (3.5-5.1) mEq/L Chloride 110 H (98-107) mEq/L Carbon Dioxide 22 (21-32) mEq/L Anion Gap 14.1 (5-15) BUN 7 (7-18) mg/dL Creatinine 0.8 (0.55-1.02) mg/dL Est Cr Clr Drug Dosing 90.41 mL/min Estimated GFR (MDRD) > 60 (>60) mL/min BUN/Creatinine Ratio 8.8 L (14-18) Glucose 116 H (74-106) mg/dL Calcium 8.2 L (8.5-10.1) mg/dL Magnesium 1.8 (1.8-2.4) mg/dl C-Reactive Protein 15.9 H* (<1.0) mg/dL Procalcitonin (<0.10) ng/mL Cortisol ug/dL Adenovirus (PCR) (Not Detected) B. pertussis DNA (PCR) (Not Detected) B.parapertussis DNA PCR (Not Detected) C. pneumoniae DNA (PCR) (Not Detected) Coronavirus (PCR) (Not Detected) Human Metapneumovir PCR (Not Detected) Influ A (H1N1/09) PCR (Not Detected) Influenza B (RT-PCR) (Not Detected) M. pneumoniae (PCR) (Not Detected) Parainfluen 1,2,3,4 PCR (Not Detected) RSV (PCR) (Not Detected) Entero/Rhino (PCR) (Not Detected) Lu[place] Results Last 24 Hours: Microbiology 06/01/18 05:50 Gram Stain - Final Sputum - Expectorated 05/30/18 20:31 Streptococcus pneumoniae Antigen (M - Final Urine 05/30/18 20:58 Aerobic Blood Culture - Preliminary Blood - Port-A-Cath NO GROWTH AFTER 1 DAY Anaerobic Blood Culture - Preliminary NO GROWTH AFTER 1 DAY 05/30/18 21:10 Aerobic Blood Culture - Preliminary Blood - Venous - Lab Draw NO GROWTH AFTER 1 DAY Anaerobic Blood Culture - Preliminary NO GROWTH AFTER 1 DAY 05/30/18 20:45 Quick Strep Confirmation Culture - Preliminary Throat Group A Streptococcus Rapid Screen - Final NEGATIVE STREP A SCREEN 05/30/18 20:31 Urine Culture - Preliminary Urine, Catheterized Gram Negative Rods Med Orders - Current: Current Medications Hydrocodone Bitart/Acetaminophen ([place] 325-5 Mg) 1 tab PO Q4H PRN PRN Reason: Pain (moderate 4-6) Albuterol/Ipratropium (Duoneb 3.0-0.5 Mg/3 Ml) 3 ml NEB Q4H PRN PRN Reason: Shortness Of Breath/wheezing Ascorbic Acid (Vitamin C) 1,000 mg PO DAILY [facility] Last Admin: 06/01/18 08:24 Dose: 1,000 mg Benzocaine/Menthol (Cepacol Sore Throat) 1 lozenge MUCMEM Q6H PRN PRN Reason: Sore Throat Last Admin: 06/01/18 08:24 Dose: 1 lozenge Bisacodyl (Dulcolax) 5 mg PO DAILY PRN PRN Reason: Constipation Dicyclomine HCl (Bentyl) 10 mg PO Q6H PRN PRN Reason: Abdominal Pain Last Admin: 06/01/18 08:25 Dose: 10 mg Enoxaparin Sodium (Lovenox) 40 mg SUBCUT DAILY [facility] Last Admin: 06/01/18 08:26 Dose: 40 mg Gabapentin (Neurontin) 300 mg PO TID [facility] Last Admin: 06/01/18 08:25 Dose: 300 mg Gabapentin (Neurontin) 100 mg PO TID [facility] Last Admin: 06/01/18 08:25 Dose: 100 mg Guaifenesin/Phenylephrine HCl (Robitussin Dm) 10 ml PO Q4H PRN PRN Reason: Cough Last Admin: 06/01/18 03:59 Dose: 10 ml Hydralazine HCl (Apresoline) 20 mg IVPUSH Q4H PRN PRN Reason: Hypertension Hydromorphone HCl (Dilaudid) 0.25 mg IVPUSH Q2H PRN PRN Reason: Pain (severe 7-10) Meropenem/Sodium Chloride 500 (mg/ Premix) 50 mls @ 100 mls/hr IV Q6H [facility] Last Admin: 06/01/18 08:15 Dose: 100 mls/hr Sodium Chloride (Normal Saline) 1,000 mls @ 125 mls/hr IV ASDIRECTED [facility] Last Admin: 06/01/18 08:53 Dose: 125 mls/hr Vancomycin HCl 750 mg/ Sodium (Chloride) 250 mls @ 166.667 mls/hr IV Q8H [facility] Last Admin: 06/01/18 02:10 Dose: 166.667 mls/hr Norepinephrine Bitartrate 4 mg (/ Dextrose/Water) 250 mls @ 7.5 mls/hr IV TITRATE [facility]; Protocol Piperacillin Sod/Tazobactam (Sod 4.5 gm/ Sodium Chloride) 100 mls @ 25 mls/hr IV Q8H [facility] Last Admin: 06/01/18 08:43 Dose: 25 mls/hr Ibuprofen (Motrin) 600 mg PO Q6H PRN PRN Reason: Pain (moderate 4-6) Last Admin: 05/31/18 01:32 Dose: 600 mg Lorazepam (Ativan) 1 mg IV Q6H PRN PRN Reason: Anxiety Magnesium Sulfate (Pharmacy To Dose - Magnesium Replacement) 1 dose .XX ASDIRECTED [facility] Metoprolol Tartrate (Lopressor) 5 mg IVPUSH Q4H PRN PRN Reason: Tachycardia Midodrine (Midodrine) 5 mg PO TIDAC PRN PRN Reason: Hypotension Last Admin: 05/31/18 10:58 Dose: 5 mg Ondansetron HCl (Zofran) 4 mg IV Q6H PRN PRN Reason: Nausea/Vomiting Last Admin: 05/31/18 01:52 Dose: 4 mg Ondansetron HCl (Zofran Odt) 8 mg PO Q8H PRN PRN Reason: Nausea Oseltamivir Phosphate (Tamiflu) 75 mg PO BID [facility] Last Admin: 06/01/18 08:25 Dose: 75 mg Phenol/Menthol (Chloraseptic Throat [place]) 0 ml MUCMEM Q6H PRN PRN Reason: Sore Throat Polyethylene Glycol (Miralax) 17 gm PO DAILY PRN PRN Reason: Constipation Potassium Chloride (Pharmacy To Dose - Potassium Replacement) 1 dose .XX ASDIRECTED [facility] Potassium Chloride (Klor-Con M20) 40 meq PO Q4H [facility] Stop: 06/01/18 12:31 Last Admin: 06/01/18 08:25 Dose: 40 meq Psyllium Husk (Metamucil Sugar Free) 1 packet PO DAILY [facility] Last Admin: 06/01/18 08:26 Dose: 1 packet Saccharomyces Boulardii (Florastor) 500 mg PO BID [facility] Last Admin: 06/01/18 08:47 Dose: 500 mg Senna/Docusate Sodium (Senna Plus) 1 tab PO BID PRN PRN Reason: Constipation Temazepam (Restoril) 7.5 mg PO BEDTIME PRN PRN Reason: Sleep Vancomycin HCl (Pharmacy To Dose - Vancomycin) 1 dose .XX ASDIRECTED [facility] Discontinued Medications Hydrocortisone Sodium Succinate (Solu-Cortef) 100 mg IVPUSH Q6H [facility] Stop: 06/01/18 07:00 Last Admin: 06/01/18 01:31 Dose: 100 mg Magnesium Sulfate 2 gm/ Premix 50 mls @ 50 mls/hr IV ONETIME STA Stop: 05/30/18 22:59 Last Admin: 05/30/18 22:14 Dose: 50 mls/hr Sodium Chloride (Normal Saline) 1,000 mls @ 999 mls/hr IV ONETIME ONE Stop: 05/30/18 23:00 Last Admin: 05/30/18 22:10 Dose: 999 mls/hr Lactated Ringer's (Ringers, Lactated) Confirm Administered Dose 1,000 mls @ as directed .ROUTE .STK-MED ONE Stop: 05/31/18 00:09 Last Admin: 05/31/18 00:10 Dose: 250 mls/hr Meropenem 1 gm/ Sodium (Chloride) 100 mls @ 200 mls/hr IV Q8H [facility] Last Admin: 05/31/18 10:57 Dose: Not Given Piperacillin Sod/Tazobactam (Sod 4.5 gm/ Sodium Chloride) 100 mls @ 25 mls/hr IV Q8H [facility] Last Admin: 05/31/18 10:56 Dose: Not Given Piperacillin Sod/Tazobactam (Sod 4.5 gm/ Sodium Chloride) 100 mls @ 200 mls/hr IV ONETIME ONE Stop: 05/31/18 01:29 Last Admin: 05/31/18 02:15 Dose: 200 mls/hr Vancomycin HCl 1 gm/ Sodium (Chloride) 250 mls @ 250 mls/hr IV ONETIME ONE Stop: 05/31/18 01:59 Last Admin: 05/31/18 02:20 Dose: 250 mls/hr Sodium Chloride (Normal Saline) 1,000 mls @ 999 mls/hr IV Q1H [facility] Stop: 05/31/18 02:30 Last Admin: 05/31/18 03:19 Dose: 999 mls/hr Sodium Chloride (Normal Saline) Confirm Administered Dose 100 mls @ as directed .ROUTE .STK-MED ONE Stop: 05/31/18 01:30 Last Admin: 05/31/18 02:42 Dose: 100 mls/hr Sodium Chloride (Normal Saline) 1,000 mls @ 999 mls/hr IV Q1H [facility] Stop: 05/31/18 07:59 Last Admin: 05/31/18 09:35 Dose: Not Given Magnesium Sulfate/Dextrose 1 (gm/ Premix) 100 mls @ 100 mls/hr IV ONETIME ONE Stop: 05/31/18 12:59 Last Admin: 05/31/18 11:06 Dose: 100 mls/hr Non-Formulary Medication (Sucralfate [Sucralfate]) 1 gm PO ASDIRECTED PRN PRN Reason: Heartburn Non-Formulary Medication (Potassium [Potassium]) 99 mg PO DAILY [facility] Oseltamivir Phosphate (Tamiflu) 75 mg PO ONETIME STA Stop: 05/30/18 22:29 Last Admin: 05/30/18 22:47 Dose: 75 mg Potassium Chloride (Klor-Con M20) 20 meq PO DAILY [facility] Last Admin: 05/31/18 09:22 Dose: 20 meq Potassium Chloride (Klor-Con M20) 40 meq PO Q4H [facility] Stop: 05/31/18 05:16 Last Admin: 05/31/18 09:34 Dose: Not Given - Exam General: Alert, Oriented, Cooperative, No Acute Distress HEENT: Pupils Equal, Pupils Reactive, EOMI, Mucous Membr. Moist/[place] Neck: Supple Lungs: Clear to Auscultation, Normal Respiratory Effort Cardiovascular: Regular Rate, Regular Rhythm, Other (port-a-cath on rigth anterior chest) GI/Abdominal Exam: Normal Bowel Sounds, Soft, Non-Tender, No Organomegaly, No Distention, No Abnormal Bruit, No Mass (Female) Exam: Other (indwelling whitney catheter) Back Exam: Normal Inspection, Decreased Range of Motion Extremities: Normal Inspection, Normal Range of Motion, Non-Tender, No Pedal Edema, Normal Capillary Refill Peripheral Pulses: 2+: Dorsalis Pedis (L), Dorsalis Pedis (R) Skin: Warm, Dry, Intact Neurological: No New Focal Deficit Psy/Mental Status: Alert, Normal Affect, Normal Mood - Problem List Review Problem List Initiated/Reviewed/Updated: Yes - My Orders Last 24 Hours: My Active Orders 05/31/18 08:30 Norepinephrine [Levophed] 4 mg Dextrose 5% in Water 246 ml IV TITRATE 05/31/18 08:40 Consult to Dietary [Consult to Sheet Tailer] [CONS] Routine 05/31/18 09:00 Ascorbic Acid [Vitamin C] 1,000 mg PO DAILY Enoxaparin [Lovenox] 40 mg SUBCUT DAILY Gabapentin [Neurontin] 100 mg PO TID Gabapentin [Neurontin] 300 mg PO TID Oseltamivir [Tamiflu] 75 mg PO BID Saccharomyces Boulardii [Florastor] 500 mg PO BID 05/31/18 09:10 Piperacillin/Tazobactam [Piperacil-Tazobact] 4.5 gm Sodium Chloride 0.9% [ Normal Saline] 100 ml IV Q8H 05/31/18 09:29 Midodrine 5 mg PO TIDAC PRN 05/31/18 11:00 Vancomycin 750 mg Sodium Chloride 0.9% [Normal Saline] 250 ml IV Q8H 05/31/18 11:16 Benzocaine/Cetylpyrd/Menthol [Cepacol Sore Throat] 1 lozenge MUCMEM Q6H PRN 05/31/18 11:18 Phenol [Chloraseptic Throat [place]] 0 ml MUCMEM Q6H PRN 05/31/18 15:41 Communication Order [RC] ASDIRECTED 06/01/18 05:50 CULTURE SPUTUM + SMEAR [RM] Stat 06/01/18 08:30 Potassium Chloride [Klor-Con M20] 40 meq PO Q4H 06/01/18 09:00 Psyllium Husk/Aspartame [Metamucil Sugar Free] 1 packet PO DAILY 06/02/18 05:11 BASIC METABOLIC PANEL,BMP [CHEM] AM C-REACTIVE PROTEIN [CHEM] AM CBC WITH AUTO DIFF [HEME] AM MAGNESIUM [CHEM] AM 06/03/18 05:11 BASIC METABOLIC PANEL,BMP [CHEM] AM C-REACTIVE PROTEIN [CHEM] AM CBC WITH AUTO DIFF [HEME] AM MAGNESIUM [CHEM] AM 06/04/18 05:11 BASIC METABOLIC PANEL,BMP [CHEM] AM C-REACTIVE PROTEIN [CHEM] AM CBC WITH AUTO DIFF [HEME] AM MAGNESIUM [CHEM] AM - Plan Plan:: Assessment/Plan: Acute: UTI 2/2 E. 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 coli sensitive to Zosyn; GPC possible contamination-awaiting confirmation - Continue whitney catheter and IV Antibiotic Strep Pneumonia Bronchitis, Improving - Has Influenza on treatment with Tamiflu - Mycoplasma negative - Strep pneumonia positive - Continue Decongestant/Expectorant - Serial CXR as needed Influenza A - Continue Tamiflu BID Pseudo-Anemia - Hgb 11.1 Post volume resuscitation; 8.5 and 8.1 - No report of active bleeding - Continue to monitor Hypokalemia - K 3.1 2/2 Chronic GI loss - Replete using home K supplement Resolved: S/p Sepsis w/ Profound Hypotension - Suspect 2/2 UTI +/- Influenza and Possible Bronchial Infection due to her Immunosuppressed state - Admitted under OBS but started to clinically deteriorate midnight - WBC of 10.98; CRP is 19.8 - Pending Blood culture and Procalcitonin level - Sepsis Protocol (3 triple antibiotic) and fluid resuscitation S/p Profound Hypotension - Cannot r/o Critical Illness Adrenal Insufficiency - Received adequate volume last night - She failed additional 2L of fluid challenge this AM - Cortisol level and will start Solucortef 100 mg IV Q6H - No requires levophed drip for pressure support - Titrate to keep MAP at or > 65 mmHg - [place] 5 mg po TID PRN for BP < 100/600 mmHg S/p Hypomagnesemia - Mg of 1.6--> 1.7--> 1.8 - 2/2 inadequate intake - Replete and monitor Chronic: IBD HL 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
[2018-06-01] MEDS ORDERED: Sodium Chloride 0.9% 10 ML Syringe FLUSH PRN (09:36)
[2018-06-01] MEDS: [UNRECOGNIZED DRUG - OTHER] PO SCH ×3 (12:28→21:12)
[2018-06-02] MEDS: Piperacillin/Tazobactam 4.5 GM in Sodium Chloride 0.9% 100 ML IV SCH ×2 (00:15→09:54)
[2018-06-02] MEDS: Midodrine 5 MG Tab PO PRN (00:18)
[2018-06-02] MEDS: guaiFENesin/Dextromethorphan 100-10 MG/5 ML Soln 5 ML Cup PO PRN (02:44)
--- NOTE | 2018-06-02 07:36 | PCM.PN ---
- General Info Date of Service: 06/02/18 Admission Dx/Problem (Free Text): Admission Diagnosis/Problem Admission Diagnosis/Problem Influenza due to influenza A virus Subjective Update: Follow Up Functional Status: Reports: Pain Controlled, Tolerating Diet, Ambulating, Urinating. Denies: New Symptoms - Review of Systems General: Denies: Fever, Weakness, Fatigue, Malaise, Chills HEENT: Reports: No Symptoms Pulmonary: Denies: Shortness of Breath, Pleuritic Chest Pain, Cough, Wheezing Cardiovascular: Denies: Chest Pain, Dyspnea on Exertion, Edema, Lightheadedness Gastrointestinal: Denies: Abdominal Pain, Decreased Appetite, Nausea, Vomiting Genitourinary: Reports: No Symptoms Musculoskeletal: Reports: No Symptoms Skin: Reports: No Symptoms Neurological: Denies: Confusion, Difficulty Walking, Weakness, Gait Disturbance Psychiatric: Denies: Depression, Anxiety, Agitation, Hallucinations Systems Review Comment:: No overnight or acute issues. She rested well last night and feels pretty good this AM. Her K and Mg levels are low. Her CRP is now down to 5. - Patient Data Vitals - Most Recent: Last Vital Signs Temp 36.6 C 06/02/18 04:00 Pulse 65 06/02/18 04:00 Resp 18 06/02/18 04:00 BP 100/77 06/02/18 04:00 Pulse Ox 95 06/02/18 04:00 Orthostatic Blood Pressure [ 87/62 Standing] Orthostatic Blood Pressure [ 89/63 Sitting] Orthostatic Blood Pressure [ 89/57 Supine] Weight - Most Recent: 58.649 kg I&O - Last 24 Hours: Intake & Output 06/01/18 06/02/18 06/02/18 22:59 06:59 14:59 Intake Total 1040 196 Output Total 535 1175 Balance 505 -979 Lab Results Last 24 Hours: Laboratory Results - last 24 hr 06/01/18 06/02/18 06/02/18 Range/Units 05:20 05:35 05:35 WBC 7.86 (3.98-10.04) K/mm3 RBC 3.50 L (3.98-5.22) M/mm3 Hgb 9.0 L (11.2-15.7) gm/L Hct 29.6 L (34.1-44.9) % MCV 84.6 (79.4-94.8) fl MCH 25.7 (25.6-32.2) pg MCHC 30.4 L (32.2-35.5) g/dl RDW Std Deviation 46.7 H (36.4-46.3) fL Plt Count 318 (182-369) K/mm3 MPV 8.1 L (9.4-12.3) fl Neut % (Auto) 58.1 (34.0-71.1) % Lymph % (Auto) 32.2 (19.3-51.7) % Love % (Auto) 9.0 (4.7-12.5) % Eos % (Auto) 0.3 L (0.7-5.8) Baso % (Auto) 0.1 (0.1-1.2) % Neut # (Auto) 4.57 (1.56-6.13) K/mm3 Lymph # (Auto) 2.53 (1.18-3.74) K/mm3 Love # (Auto) 0.71 H (0.24-0.36) K/mm3 Eos # (Auto) 0.02 L (0.04-0.36) K/mm3 Baso # (Auto) 0.01 (0.01-0.08) K/mm3 Manual Slide Review Abnormal smear Sodium 142 (136-145) mEq/L Potassium 3.1 L (3.5-5.1) mEq/L Chloride 110 H (98-107) mEq/L Carbon Dioxide 25 (21-32) mEq/L Anion Gap 10.1 (5-15) BUN 8 (7-18) mg/dL Creatinine 1.0 (0.55-1.02) mg/dL Est Cr Clr Drug Dosing 72.32 mL/min Estimated GFR (MDRD) > 60 (>60) mL/min BUN/Creatinine Ratio 8.0 L (14-18) Glucose 74 (74-106) mg/dL Calcium 8.2 L (8.5-10.1) mg/dL Magnesium 1.7 L (1.8-2.4) mg/dl C-Reactive Protein 5.0 H* (<1.0) mg/dL Luís Results Last 24 Hours: Microbiology 05/30/18 20:58 Aerobic Blood Culture - Preliminary Blood - Port-A-Cath NO GROWTH AFTER 2 DAYS Anaerobic Blood Culture - Preliminary NO GROWTH AFTER 2 DAYS 05/30/18 21:10 Aerobic Blood Culture - Preliminary Blood - Venous - Lab Draw NO GROWTH AFTER 2 DAYS Anaerobic Blood Culture - Preliminary NO GROWTH AFTER 2 DAYS 05/30/18 20:31 Urine Culture - Preliminary Urine, Catheterized Escherichia Coli Gram Positive Cocci 05/30/18 20:45 Quick Strep Confirmation Culture - Final Throat NEGATIVE FOR BETA STREP Group A Streptococcus Rapid Screen - Final NEGATIVE STREP A SCREEN 06/01/18 05:50 Gram Stain - Final Sputum - Expectorated Med Orders - Current: Current Medications Hydrocodone Bitart/Acetaminophen ([place] 325-5 Mg) 1 tab PO Q4H PRN PRN Reason: Pain (moderate 4-6) Albuterol/Ipratropium (Duoneb 3.0-0.5 Mg/3 Ml) 3 ml NEB Q4H PRN PRN Reason: Shortness Of Breath/wheezing Ascorbic Acid (Vitamin C) 1,000 mg PO DAILY [facility] Last Admin: 06/01/18 08:24 Dose: 1,000 mg Benzocaine/Menthol (Cepacol Sore Throat) 1 lozenge MUCMEM Q6H PRN PRN Reason: Sore Throat Last Admin: 06/01/18 08:24 Dose: 1 lozenge Bisacodyl (Dulcolax) 5 mg PO DAILY PRN PRN Reason: Constipation Dicyclomine HCl (Bentyl) 10 mg PO Q6H PRN PRN Reason: Abdominal Pain Last Admin: 06/01/18 21:14 Dose: 10 mg Enoxaparin Sodium (Lovenox) 40 mg SUBCUT DAILY [facility] Last Admin: 06/01/18 08:26 Dose: 40 mg Gabapentin (Neurontin) 300 mg PO TID [facility] Last Admin: 06/01/18 21:12 Dose: 300 mg Gabapentin (Neurontin) 100 mg PO TID [facility] Last Admin: 06/01/18 21:12 Dose: 100 mg Guaifenesin/Phenylephrine HCl (Robitussin Dm) 10 ml PO Q4H PRN PRN Reason: Cough Last Admin: 06/02/18 02:44 Dose: 10 ml Hydralazine HCl (Apresoline) 20 mg IVPUSH Q4H PRN PRN Reason: Hypertension Hydromorphone HCl (Dilaudid) 0.25 mg IVPUSH Q2H PRN PRN Reason: Pain (severe 7-10) Piperacillin Sod/Tazobactam (Sod 4.5 gm/ Sodium Chloride) 100 mls @ 25 mls/hr IV Q8H [facility] Last Admin: 06/02/18 00:15 Dose: 25 mls/hr Magnesium Sulfate 2 gm/ Premix 50 mls @ 25 mls/hr IV ONETIME ONE Stop: 06/02/18 09:59 Ibuprofen (Motrin) 600 mg PO Q6H PRN PRN Reason: Pain (moderate 4-6) Last Admin: 05/31/18 01:32 Dose: 600 mg Lorazepam (Ativan) 1 mg IV Q6H PRN PRN Reason: Anxiety Magnesium Sulfate (Pharmacy To Dose - Magnesium Replacement) 1 dose .XX ASDIRECTED [facility] Metoprolol Tartrate (Lopressor) 5 mg IVPUSH Q4H PRN PRN Reason: Tachycardia Midodrine (Midodrine) 5 mg PO TIDAC PRN PRN Reason: Hypotension Last Admin: 06/02/18 00:18 Dose: 5 mg Ondansetron HCl (Zofran) 4 mg IV Q6H PRN PRN Reason: Nausea/Vomiting Last Admin: 05/31/18 01:52 Dose: 4 mg Ondansetron HCl (Zofran Odt) 8 mg PO Q8H PRN PRN Reason: Nausea Oseltamivir Phosphate (Tamiflu) 75 mg PO BID [facility] Last Admin: 06/01/18 21:12 Dose: 75 mg Potassium 99 Mg 0 each PO DAILY [facility] Last Admin: 06/01/18 12:28 Dose: 2 each Equate Daily Fiber (Capsules) 0 each PO TID@0800,1600,2200 [facility] Last Admin: 06/01/18 21:12 Dose: 3 each Phenol/Menthol (Chloraseptic Throat [place]) 0 ml MUCMEM Q6H PRN PRN Reason: Sore Throat Polyethylene Glycol (Miralax) 17 gm PO DAILY PRN PRN Reason: Constipation Potassium Chloride (Pharmacy To Dose - Potassium Replacement) 1 dose .XX ASDIRECTED [facility] Potassium Chloride (Klor-Con M20) 40 meq PO Q4H [facility] Stop: 06/02/18 17:01 Saccharomyces Boulardii (Florastor) 500 mg PO BID [facility] Last Admin: 06/01/18 21:12 Dose: 500 mg Senna/Docusate Sodium (Senna Plus) 1 tab PO BID PRN PRN Reason: Constipation Sodium Chloride (Saline Flush) 10 ml FLUSH ASDIRECTED PRN PRN Reason: Keep Vein Open Temazepam (Restoril) 7.5 mg PO BEDTIME PRN PRN Reason: Sleep Discontinued Medications Hydrocortisone Sodium Succinate (Solu-Cortef) 100 mg IVPUSH Q6H [facility] Stop: 06/01/18 07:00 Last Admin: 06/01/18 01:31 Dose: 100 mg Magnesium Sulfate 2 gm/ Premix 50 mls @ 50 mls/hr IV ONETIME STA Stop: 05/30/18 22:59 Last Admin: 05/30/18 22:14 Dose: 50 mls/hr Sodium Chloride (Normal Saline) 1,000 mls @ 999 mls/hr IV ONETIME ONE Stop: 05/30/18 23:00 Last Admin: 05/30/18 22:10 Dose: 999 mls/hr Lactated Ringer's (Ringers, Lactated) Confirm Administered Dose 1,000 mls @ as directed .ROUTE .STK-MED ONE Stop: 05/31/18 00:09 Last Admin: 05/31/18 00:10 Dose: 250 mls/hr Meropenem 1 gm/ Sodium (Chloride) 100 mls @ 200 mls/hr IV Q8H [facility] Last Admin: 05/31/18 10:57 Dose: Not Given Piperacillin Sod/Tazobactam (Sod 4.5 gm/ Sodium Chloride) 100 mls @ 25 mls/hr IV Q8H [facility] Last Admin: 05/31/18 10:56 Dose: Not Given Piperacillin Sod/Tazobactam (Sod 4.5 gm/ Sodium Chloride) 100 mls @ 200 mls/hr IV ONETIME ONE Stop: 05/31/18 01:29 Last Admin: 05/31/18 02:15 Dose: 200 mls/hr Vancomycin HCl 1 gm/ Sodium (Chloride) 250 mls @ 250 mls/hr IV ONETIME ONE Stop: 05/31/18 01:59 Last Admin: 05/31/18 02:20 Dose: 250 mls/hr Meropenem/Sodium Chloride 500 (mg/ Premix) 50 mls @ 100 mls/hr IV Q6H [facility] Last Admin: 06/01/18 08:15 Dose: 100 mls/hr Sodium Chloride (Normal Saline) 1,000 mls @ 125 mls/hr IV ASDIRECTED [facility] Last Admin: 06/01/18 08:53 Dose: 125 mls/hr Sodium Chloride (Normal Saline) 1,000 mls @ 999 mls/hr IV Q1H [facility] Stop: 05/31/18 02:30 Last Admin: 05/31/18 03:19 Dose: 999 mls/hr Sodium Chloride (Normal Saline) Confirm Administered Dose 100 mls @ as directed .ROUTE .STK-MED ONE Stop: 05/31/18 01:30 Last Admin: 05/31/18 02:42 Dose: 100 mls/hr Vancomycin HCl 750 mg/ Sodium (Chloride) 250 mls @ 166.667 mls/hr IV Q8H [facility] Last Admin: 06/01/18 02:10 Dose: 166.667 mls/hr Sodium Chloride (Normal Saline) 1,000 mls @ 999 mls/hr IV Q1H [facility] Stop: 05/31/18 07:59 Last Admin: 05/31/18 09:35 Dose: Not Given Norepinephrine Bitartrate 4 mg (/ Dextrose/Water) 250 mls @ 7.5 mls/hr IV TITRATE [facility]; Protocol Magnesium Sulfate/Dextrose 1 (gm/ Premix) 100 mls @ 100 mls/hr IV ONETIME ONE Stop: 05/31/18 12:59 Last Admin: 05/31/18 11:06 Dose: 100 mls/hr Non-Formulary Medication (Sucralfate [Sucralfate]) 1 gm PO ASDIRECTED PRN PRN Reason: Heartburn Non-Formulary Medication (Potassium [Potassium]) 99 mg PO DAILY [facility] Oseltamivir Phosphate (Tamiflu) 75 mg PO ONETIME STA Stop: 05/30/18 22:29 Last Admin: 05/30/18 22:47 Dose: 75 mg Potassium Chloride (Klor-Con M20) 20 meq PO DAILY [facility] Last Admin: 05/31/18 09:22 Dose: 20 meq Potassium Chloride (Klor-Con M20) 40 meq PO Q4H [facility] Stop: 05/31/18 05:16 Last Admin: 05/31/18 09:34 Dose: Not Given Potassium Chloride (Klor-Con M20) 40 meq PO Q4H [facility] Stop: 06/01/18 12:31 Last Admin: 06/01/18 12:29 Dose: 40 meq Psyllium Husk (Metamucil Sugar Free) 1 packet PO DAILY [facility] Last Admin: 06/01/18 08:26 Dose: 1 packet Vancomycin HCl (Pharmacy To Dose - Vancomycin) 1 dose .XX ASDIRECTED [facility] - Exam General: Alert, Oriented, Cooperative, No Acute Distress HEENT: Pupils Equal, Pupils Reactive, EOMI, Mucous Membr. Moist/[place] Neck: Supple Lungs: Clear to Auscultation, Normal Respiratory Effort Cardiovascular: Regular Rate, Regular Rhythm, Other (port-a-cath access line) GI/Abdominal Exam: Normal Bowel Sounds, Soft, Non-Tender, No Organomegaly, No Distention, No Abnormal Bruit, No Mass (Female) Exam: Other (indwelling whitney catheter) Back Exam: Normal Inspection, Full Range of Motion Extremities: Normal Inspection, Normal Range of Motion, Non-Tender, No Pedal Edema, Normal Capillary Refill Peripheral Pulses: 2+: Dorsalis Pedis (L), Dorsalis Pedis (R) Skin: Warm, Dry, Intact Neurological: No New Focal Deficit Psy/Mental Status: Alert, Normal Affect, Normal Mood - Problem List Review Problem List Initiated/Reviewed/Updated: Yes - My Orders Last 24 Hours: My Active Orders 06/01/18 09:36 Sodium Chloride 0.9% [Saline Flush] 10 ml FLUSH ASDIRECTED PRN Saline Lock Insert [OM.PC] Routine 06/01/18 11:00 Patient's Own Medication [Ptom] 0 each PO DAILY 06/01/18 11:15 Patient's Own Medication [Ptom] 0 each PO TID@0800,1600,2200 06/02/18 06:40 Patient Status [ADT] Routine 06/02/18 08:00 Magnesium Sulfate/Water [Magnesium Sulfate 2 GM in Water 50 ML] 2 gm Premix Bag 1 bag IV ONETIME 06/02/18 09:00 Potassium Chloride [Klor-Con M20] 40 meq PO Q4H 06/03/18 05:11 BASIC METABOLIC PANEL,BMP [CHEM] AM C-REACTIVE PROTEIN [CHEM] AM CBC WITH AUTO DIFF [HEME] AM MAGNESIUM [CHEM] AM 06/04/18 05:11 BASIC METABOLIC PANEL,BMP [CHEM] AM C-REACTIVE PROTEIN [CHEM] AM CBC WITH AUTO DIFF [HEME] AM MAGNESIUM [CHEM] AM - Plan Plan:: Assessment/Plan: Acute: UTI 2/2 E. 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 coli sensitive to Zosyn; GPC a different strain not strep per microbiology - Continue whitney catheter and pharmacy to switch to oral regimen Strep Pneumonia Bronchitis, Improving - Has Influenza on treatment with Tamiflu - Mycoplasma negative - Strep pneumonia positive - Continue Decongestant/Expectorant - Serial CXR as needed Influenza A - Continue Tamiflu BID Chronic E-tyes Abnormality * Hypokalemia - K 3.1 2/2 Chronic GI loss - Replete using home K supplement * Hypomagnesemia - Mg of 1.6--> 1.7--> 1.8--> 1.7 - 2/2 Chronic GI Loss - Replete and monitor Resolved: S/p Sepsis w/ Profound Hypotension - Suspect 2/2 UTI +/- Influenza and Possible Bronchial Infection due to her Immunosuppressed state - Admitted under OBS but started to clinically deteriorate midnight - WBC of 10.98; CRP is 19.8 - Pending Blood culture and Procalcitonin level - Sepsis Protocol (3 triple antibiotic) and fluid resuscitation S/p Profound Hypotension - Cannot r/o Critical Illness Adrenal Insufficiency - Received adequate volume last night - She failed additional 2L of fluid challenge this AM - Cortisol level and will start Solucortef 100 mg IV Q6H - No requires levophed drip for pressure support - Titrate to keep MAP at or > 65 mmHg - [place] 5 mg po TID PRN for BP < 100/600 mmHg S/p Pseudo-Anemia - Hgb 11.1 Post volume resuscitation; 8.5 and 8.1--> now 9.0 - No report of active bleeding - Continue to monitor Chronic: IBD HL S/p SC Transplant and Chemotherapy Urinary Retention Transverse Myelitis Hyperthyroidism Anemia Immunosuppression Plan: She remains clinically and hemodynamically stable Routine AM Labs Continue whitney catheter (she already got UTI) DVT Prophylaxis SW/C for d/c planning Discharge pending culture sensitivity of GPC in AM per microbiology With 's permission, updated about her morning labs, clinical status , treatment and discharge care plan.
[2018-06-02] MEDS ORDERED: Magnesium Sulfate/Water 2 GM in Premix Bag 1 BAG IV ONE (08:00)
[2018-06-02] MEDS: Enoxaparin 40 MG/0.4 ML Syringe SUBCUT SCH (10:01)
[2018-06-02] MEDS: Saccharomyces Boulardii (Probiotic) 250 MG Cap PO SCH ×2 (10:02→21:32)
[2018-06-02] MEDS: Potassium Chloride 20 MEQ Tab.ER PO SCH ×3 (10:02→16:34)
[2018-06-02] MEDS: Gabapentin 300 MG Cap PO SCH ×3 (10:02→21:33)
[2018-06-02] MEDS: Oseltamivir 75 MG Cap PO SCH ×2 (10:03→21:33)
[2018-06-02] MEDS: Gabapentin 100 MG Cap PO SCH ×3 (10:04→21:33)
[2018-06-02] MEDS: Dicyclomine 10 MG Cap PO PRN ×2 (10:08→16:35)
[2018-06-02] MEDS: Ascorbic Acid 500 MG Tab PO SCH (10:08)
[2018-06-02] MEDS: [UNRECOGNIZED DRUG - OTHER] PO SCH ×3 (10:09→21:33)
[2018-06-02] MEDS ORDERED: Amoxicillin/Clavulanate K 875-125 MG Tab PO SCH (18:00)
[2018-06-02] MEDS ORDERED: Bisacodyl 10 MG Supp RECTAL PRN (22:21)
[2018-06-02] MEDS ORDERED: PROMETHAZINE HCL 25 MG TOP PRN (22:21)
[2018-06-02] MEDS: Sucralfate 1 GM Tab PO SCH (23:00)
[2018-06-02] MEDS: BUDESONIDE 3 MG PO SCH (23:30)
[2018-06-03 03:42] VITALS: BP 94/63
[2018-06-03] MEDS: Sucralfate 1 GM Tab PO SCH ×2 (06:12→10:22)
[2018-06-03] MEDS ORDERED: Amoxicillin/Clavulanate K 875-125 MG Tab PO SCH (08:00)
[2018-06-03] MEDS: Oseltamivir 75 MG Cap PO SCH (08:34)
[2018-06-03] MEDS: Ascorbic Acid 500 MG Tab PO SCH (08:34)
[2018-06-03] MEDS: Saccharomyces Boulardii (Probiotic) 250 MG Cap PO SCH (08:34)
[2018-06-03] MEDS: Gabapentin 100 MG Cap PO SCH (08:34)
[2018-06-03] MEDS: Gabapentin 300 MG Cap PO SCH (08:34)
[2018-06-03] MEDS: BUDESONIDE 3 MG PO SCH (08:35)
[2018-06-03] MEDS: [UNRECOGNIZED DRUG - OTHER] PO SCH (08:36)
[2018-06-03] MEDS: Enoxaparin 40 MG/0.4 ML Syringe SUBCUT SCH (08:45)
--- NOTE | 2018-06-03 10:14 | PCM.DCSUM1 ---
Discharge Summary - Hospital Course Free Text/Narrative:: Patient was primarily admitted for Sepsis secondary to catheter related urinary tract infection plus influenza infection. She presented to us clearly septic but with aggressive treatment initiated using sepsis protocol, she gradually improved on this regimen. Her blood culture was negative for any organismal growth but her UA grew E.coli and Streptococcus Anginosus; both sensitive to Quinolone. Her hospital course was uncomplicated and the rest of her chronic medical illness remained stable during this admission. HPI Initial Comments: This is a 28 yo young white female with past medical hx/o IBD on Entyvio, Hodgkin Lymphoma S/p Autologous Stem Cell Transplant in 2006 and Chemotherapy on Keytudra, Urinary Retention, Transverse Myelitis, Hyperthyroidism, Anemia of Chronic Disease and Immunosuppression who comes in for evaluation of fever as high at 104.6 associated with nausea, bloody diarrhea, dyspnea, sore throat, wet cough with greenish sputum and chest soreness from coughing that started yesterday morning. She took some Tylenol and NSAIDs but felt her symptoms did not improve. She reports similar symptoms in the past wherein she was diagnosed with acute flare up of Crohn's Disease. Upon presentation to ED, she had a documented BP of 89/62 mmHg with a heart rate of 141 bpm. Her initial work up shows a CBC remarkable for WBC of 10.26, Hgb of 11.1, MCH of 25.4, MCHC of 30.7, Platelet of 370, MPV of 8.3, Neutrophils of 73%, and Lymphocytes of 18%. Her chemistry is significant for AG of 15.5, Mg of 1.6, Alkaline Phos of 171, and Albumin of 2.5. Her UA is suggestive of UTI. Influenza screening is positive for flu A. Diagnosis: Stroke: No Modified Ashley Scale: No Symptoms at All Modified Ashley Scale Score: 0 - Discharge Data Discharge Date: 06/03/18 Discharge Disposition: Home, Self-Care 01 Condition: Good - Discharge Diagnosis/Problem(s) (1) Sepsis associated hypotension SNOMED Code(s): 35295325 ICD Code: A41.9 - SEPSIS, UNSPECIFIED ORGANISM; I95.9 - HYPOTENSION, UNSPECIFIED Status: Resolved (2) Streptococcus pneumoniae SNOMED Code(s): 69872109 ICD Code: A49.1 - STREPTOCOCCAL INFECTION, UNSPECIFIED SITE Status: Acute Problem Details: - Bronchitis (3) Influenza A H1N1 infection SNOMED Code(s): 199694098 ICD Code: J10.1 - FLU DUE TO OTH IDENT INFLUENZA VIRUS W OTH RESP MANIFEST Status: Acute (4) Hypokalemia, gastrointestinal losses SNOMED Code(s): 79007610 ICD Code: E87.6 - HYPOKALEMIA Status: Resolved (5) Catheter-associated urinary tract infection SNOMED Code(s): 054279695 ICD Code: T83.511A - I/I REACT D/T INDWELLING URETHRAL CATHETER, INIT; N39.0 - URINARY TRACT INFECTION, SITE NOT SPECIFIED Status: Acute (6) Hypomagnesemia syndrome SNOMED Code(s): 515298057 ICD Code: E83.42 - HYPOMAGNESEMIA Status: Resolved (7) Crohn disease SNOMED Code(s): 90189761 ICD Code: K50.90 - CROHN'S DISEASE, UNSPECIFIED, WITHOUT COMPLICATIONS Status: Chronic Qualifiers: Gastrointestinal tract location: unspecified location Digestive disease complication type: unspecified complication Qualified Code(s): K50.919 - Crohn 's disease, unspecified, with unspecified complications - Patient Summary/Data Operative Procedure(s) Performed: None Complications: None Consults: Consultations 05/31/18 00:47 Consult to Case Management/Cylinder Inspector And Tester [CONS] Routine Consult to Psychiatric Assistant [CONS] Routine Consult to Spiritual Care [CONS] Routine Respiratory Care Assess and Treatment [CONS] Routine 05/31/18 08:40 Consult to Dietary [Consult to Psychiatric Assistant] [CONS] Routine Labs Pending at D/C: None Recommended Follow-up Testing/Procedures: None Planned Operative Procedure(s) after DC: None - Patient Instructions Diet: Usual Diet as Tolerated Activity: As Tolerated Driving: May Drive Today Showering/Bathing: May Shower Notify Provider of: Fever, Increased Pain, Swelling and Redness, Nausea and/or Vomiting Other/Special Instructions: - Please take all new medications as directed. - Resume all home medications and routine home activities as tolerated. - Recommend follow up CBC, BMP with Mg in 1 week through your PCP's office. - Make sure you are uptodate on all of your shot records; discuss this on follow up appointment with PCP. - May use [id number] decongest/expectorant like Robitussin-DM for your cough. - Call or follow up with your PCP for any questions or concerns after discharge. - Follow up with your PCP in 1 week with repeat labs above. - Come back or seek immediate care should your symptoms persist or get worse - Discharge Plan *PRESCRIPTION DRUG MONITORING PROGRAM REVIEWED*: Not Applicable *COPY OF PRESCRIPTION DRUG MONITORING REPORT IN PATIENT ADRIAN: Not Applicable Prescriptions/Med Rec: Levofloxacin [Levaquin] 500 mg PO DAILY #4 tablet Oseltamivir [Tamiflu] 75 mg PO BID #3 cap Saccharomyces Boulardii [Florastor] 500 mg PO BID #10 cap Home Medications: Home Meds Promethazine HCl [Phenergan] 25 mg TOP Q6H PRN 03/17/16 [History] medroxyPROGESTERone Acetate [Depo-Provera] 150 mg IM ASDIRECTED 03/17/16 [ History] Gabapentin [Neurontin] 400 mg PO TID 06/23/17 [History] Ondansetron [Zofran ODT] 8 mg PO Q8HR PRN 06/23/17 [History] Ascorbic Acid [Vitamin C] 1,000 mg PO DAILY 05/30/18 [History] Bisacodyl [Dulcolax] 10 mg RC ASDIRECTED PRN 05/30/18 [History] Budesonide [Budesonide EC] 12 mg PO DAILY 05/30/18 [History] Dicyclomine HCl [Bentyl] 10 mg PO Q6HR PRN 05/30/18 [History] Estrogens, Conjugated [Premarin Vaginal Crm] 1 applic VAG MOWEFR 05/30/18 [ History] Sucralfate 1 gm PO QID 05/30/18 [History] Potassium 2 tab PO DAILY 05/31/18 [History] Psyllium Husk [Psyllium Fiber] 3 cap PO TID 05/31/18 [History] Methenamine Hippurate [Hiprex] 1 gram PO DAILY 06/02/18 [History] Levofloxacin [Levaquin] 500 mg PO DAILY #4 tablet 06/03/18 [Rx] Oseltamivir [Tamiflu] 75 mg PO BID #3 cap 06/03/18 [Rx] Saccharomyces Boulardii [Florastor] 500 mg PO BID #10 cap 06/03/18 [Rx] Patient Handouts: Cool Mist Vaporizer, Influenza, Adult, [id number], Catheter -Associated Urinary Tract Infection FAQs - MCKEON, Hypomagnesemia, Hypokalemia, Sepsis, Adult, Immunosuppression, Probiotics, Crohn Disease Referrals: Marge Winn PA-C [Primary Care Provider] - Destin Guzmán MD [Ordering Only Provider] - Everette Ulloa MD [Ordering Only Provider] - - Discharge Summary/Plan Comment DC Time >30 min.: No Discharge Summary/Plan Comment: Discharge to Home On the day of discharge, we went over the the risk and benefits of using Quinolones. She states she had taken it before without any issues. Informed her that this would take care all three bugs instead of having to have 2 separate antibiotics and the duration is as short as 3-4 days only. Patient agreed. - General Info Date of Service: 06/03/18 Admission Dx/Problem (Free Text: Admission Diagnosis/Problem Admission Diagnosis/Problem Influenza due to influenza A virus Subjective Update: Follow Up Functional Status: Reports: Pain Controlled, Tolerating Diet, Ambulating, Urinating. Denies: New Symptoms - Review of Systems General: Denies: Fever, Weakness, Fatigue, Malaise, Chills HEENT: Reports: No Symptoms Pulmonary: Denies: Shortness of Breath, Cough, Hemoptysis Cardiovascular: Denies: Chest Pain, Dyspnea on Exertion, Edema, Lightheadedness Gastrointestinal: Reports: Diarrhea (chronic). Denies: Abdominal Pain, Decreased Appetite, Nausea, Vomiting Genitourinary: Reports: Retention (chronic) Musculoskeletal: Reports: No Symptoms Skin: Denies: Cyanosis, Mottled, Pallor, Diaphoresis, Bruising, Other Neurological: Denies: Confusion, Difficulty Walking, Weakness, Gait Disturbance Psychiatric: Denies: No Symptoms, Depression, Anxiety, Hallucinations Systems Review Comment: No overnight or acute issues. She slept well and fells really good this AM. She has no complaints during morning rounds. - Patient Data Vitals - Most Recent: Last Vital Signs Temp 36.7 C 06/03/18 06:04 Pulse 86 06/03/18 06:04 Resp 13 06/03/18 06:04 BP 94/63 06/03/18 01:12 Pulse Ox 99 06/03/18 06:04 Orthostatic Blood Pressure [ 87/62 Standing] Orthostatic Blood Pressure [ 89/63 Sitting] Orthostatic Blood Pressure [ 89/57 Supine] Weight - Most Recent: 56.88 kg I&O - Last 24 hours: Intake & Output 06/02/18 06/03/18 06/03/18 22:59 06:59 14:59 Intake Total 990 400 Output Total 2800 1750 Balance -1810 -1350 Lab Results - Last 24 hrs: Laboratory Results - last 24 hr 06/03/18 06/03/18 Range/Units 05:54 05:54 WBC 6.30 (3.98-10.04) K/mm3 RBC 4.08 (3.98-5.22) M/mm3 Hgb 10.6 L (11.2-15.7) gm/L Hct 33.9 L (34.1-44.9) % MCV 83.1 (79.4-94.8) fl MCH 26.0 (25.6-32.2) pg MCHC 31.3 L (32.2-35.5) g/dl RDW Std Deviation 45.6 (36.4-46.3) fL Plt Count 344 (182-369) K/mm3 MPV 7.9 L (9.4-12.3) fl Neut % (Auto) 65.8 (34.0-71.1) % Lymph % (Auto) 21.3 (19.3-51.7) % [place] % (Auto) 12.1 (4.7-12.5) % Eos % (Auto) 0.3 L (0.7-5.8) Baso % (Auto) 0.2 (0.1-1.2) % Neut # (Auto) 4.15 (1.56-6.13) K/mm3 Lymph # (Auto) 1.34 (1.18-3.74) K/mm3 [place] # (Auto) 0.76 H (0.24-0.36) K/mm3 Eos # (Auto) 0.02 L (0.04-0.36) K/mm3 Baso # (Auto) 0.01 (0.01-0.08) K/mm3 Sodium 136 (136-145) mEq/L Potassium 4.5 (3.5-5.1) mEq/L Chloride 104 (98-107) mEq/L Carbon Dioxide 27 (21-32) mEq/L Anion Gap 9.5 (5-15) BUN 8 (7-18) mg/dL Creatinine 0.8 (0.55-1.02) mg/dL Est Cr Clr Drug Dosing 89.21 mL/min Estimated GFR (MDRD) > 60 (>60) mL/min BUN/Creatinine Ratio 10.0 L (14-18) Glucose 88 (74-106) mg/dL Calcium 8.9 (8.5-10.1) mg/dL Magnesium 2.3 (1.8-2.4) mg/dl C-Reactive Protein 5.7 H* (<1.0) mg/dL BEENA Results - Last 24 hrs: Microbiology 06/01/18 05:50 Gram Stain - Final Sputum - Expectorated Sputum Culture - Preliminary 05/30/18 20:31 Urine Culture - Final Urine, Catheterized Escherichia Coli Streptococcus Anginosus 05/30/18 20:58 Aerobic Blood Culture - Preliminary Blood - Port-A-Cath NO GROWTH AFTER 3 DAYS Anaerobic Blood Culture - Preliminary NO GROWTH AFTER 3 DAYS 05/30/18 21:10 Aerobic Blood Culture - Preliminary Blood - Venous - Lab Draw NO GROWTH AFTER 3 DAYS Anaerobic Blood Culture - Preliminary NO GROWTH AFTER 3 DAYS Med Orders - Current: Current Medications Hydrocodone Bitart/Acetaminophen ([place] 325-5 Mg) 1 tab PO Q4H PRN PRN Reason: Pain (moderate 4-6) Albuterol/Ipratropium (Duoneb 3.0-0.5 Mg/3 Ml) 3 ml NEB Q4H PRN PRN Reason: Shortness Of Breath/wheezing Amoxicillin/Clavulanate Potassium (Augmentin 875 Mg/125 Mg) 1 tab PO Q12H [facility] Last Admin: 06/03/18 08:34 Dose: 1 tab Ascorbic Acid (Vitamin C) 1,000 mg PO DAILY [facility] Last Admin: 06/03/18 08:34 Dose: 1,000 mg Benzocaine/Menthol (Cepacol Sore Throat) 1 lozenge MUCMEM Q6H PRN PRN Reason: Sore Throat Last Admin: 06/01/18 08:24 Dose: 1 lozenge Bisacodyl (Dulcolax) 5 mg PO DAILY PRN PRN Reason: Constipation Bisacodyl (Dulcolax) 10 mg RECTAL DAILY PRN PRN Reason: Constipation/Can't tolerate PO Dicyclomine HCl (Bentyl) 10 mg PO Q6H PRN PRN Reason: Abdominal Pain Last Admin: 06/02/18 16:35 Dose: 10 mg Enoxaparin Sodium (Lovenox) 40 mg SUBCUT DAILY [facility] Last Admin: 06/03/18 08:45 Dose: Not Given Gabapentin (Neurontin) 300 mg PO TID [facility] Last Admin: 06/03/18 08:34 Dose: 300 mg Gabapentin (Neurontin) 100 mg PO TID [facility] Last Admin: 06/03/18 08:34 Dose: 100 mg Guaifenesin/Phenylephrine HCl (Robitussin Dm) 10 ml PO Q4H PRN PRN Reason: Cough Last Admin: 06/02/18 02:44 Dose: 10 ml Hydralazine HCl (Apresoline) 20 mg IVPUSH Q4H PRN PRN Reason: Hypertension Hydromorphone HCl (Dilaudid) 0.25 mg IVPUSH Q2H PRN PRN Reason: Pain (severe 7-10) Ibuprofen (Motrin) 600 mg PO Q6H PRN PRN Reason: Pain (moderate 4-6) Last Admin: 05/31/18 01:32 Dose: 600 mg Lorazepam (Ativan) 1 mg IV Q6H PRN PRN Reason: Anxiety Magnesium Sulfate (Pharmacy To Dose - Magnesium Replacement) 1 dose .XX ASDIRECTED [facility] Metoprolol Tartrate (Lopressor) 5 mg IVPUSH Q4H PRN PRN Reason: Tachycardia Midodrine (Midodrine) 5 mg PO TIDAC PRN PRN Reason: Hypotension Last Admin: 06/02/18 00:18 Dose: 5 mg Budesonide ( Budesonide Dr) 3mg CapOwn Med 12 mg PO DAILY [facility] Last Admin: 06/03/18 08:35 Dose: 12 mg Ondansetron HCl (Zofran) 4 mg IV Q6H PRN PRN Reason: Nausea/Vomiting Last Admin: 05/31/18 01:52 Dose: 4 mg Ondansetron HCl (Zofran Odt) 8 mg PO Q8H PRN PRN Reason: Nausea Oseltamivir Phosphate (Tamiflu) 75 mg PO BID [facility] Last Admin: 06/03/18 08:34 Dose: 75 mg Potassium 99 Mg 0 each PO DAILY [facility] Last Admin: 06/03/18 08:37 Dose: 2 each Equate Daily Fiber (Capsules) 0 each PO TID@0800,1600,2200 [facility] Last Admin: 06/03/18 08:36 Dose: 3 each Methenamine Hippurate 1 Gm Tab * *Ptom 0 each PO DAILY [facility] Phenol/Menthol (Chloraseptic Throat [place]) 0 ml MUCMEM Q6H PRN PRN Reason: Sore Throat Polyethylene Glycol (Miralax) 17 gm PO DAILY PRN PRN Reason: Constipation Potassium Chloride (Pharmacy To Dose - Potassium Replacement) 1 dose .XX ASDIRECTED [facility] Saccharomyces Boulardii (Florastor) 500 mg PO BID [facility] Last Admin: 06/03/18 08:34 Dose: 500 mg Senna/Docusate Sodium (Senna Plus) 1 tab PO BID PRN PRN Reason: Constipation Sodium Chloride (Saline Flush) 10 ml FLUSH ASDIRECTED PRN PRN Reason: Keep Vein Open Sucralfate (Carafate) 1 gm PO QIDACANDBED [facility] Last Admin: 06/03/18 06:12 Dose: 1 gm Temazepam (Restoril) 7.5 mg PO BEDTIME PRN PRN Reason: Sleep Discontinued Medications Amoxicillin/Clavulanate Potassium (Augmentin 875 Mg/125 Mg) 1 tab PO Q12H [facility] Last Admin: 06/02/18 17:39 Dose: 1 tab Hydrocortisone Sodium Succinate (Solu-Cortef) 100 mg IVPUSH Q6H [facility] Stop: 06/01/18 07:00 Last Admin: 06/01/18 01:31 Dose: 100 mg Magnesium Sulfate 2 gm/ Premix 50 mls @ 50 mls/hr IV ONETIME STA Stop: 05/30/18 22:59 Last Admin: 05/30/18 22:14 Dose: 50 mls/hr Sodium Chloride (Normal Saline) 1,000 mls @ 999 mls/hr IV ONETIME ONE Stop: 05/30/18 23:00 Last Admin: 05/30/18 22:10 Dose: 999 mls/hr Lactated Ringer's (Ringers, Lactated) Confirm Administered Dose 1,000 mls @ as directed .ROUTE .STK-MED ONE Stop: 05/31/18 00:09 Last Admin: 05/31/18 00:10 Dose: 250 mls/hr Meropenem 1 gm/ Sodium (Chloride) 100 mls @ 200 mls/hr IV Q8H [facility] Last Admin: 05/31/18 10:57 Dose: Not Given Piperacillin Sod/Tazobactam (Sod 4.5 gm/ Sodium Chloride) 100 mls @ 25 mls/hr IV Q8H [facility] Last Admin: 05/31/18 10:56 Dose: Not Given Piperacillin Sod/Tazobactam (Sod 4.5 gm/ Sodium Chloride) 100 mls @ 200 mls/hr IV ONETIME ONE Stop: 05/31/18 01:29 Last Admin: 05/31/18 02:15 Dose: 200 mls/hr Vancomycin HCl 1 gm/ Sodium (Chloride) 250 mls @ 250 mls/hr IV ONETIME ONE Stop: 05/31/18 01:59 Last Admin: 05/31/18 02:20 Dose: 250 mls/hr Meropenem/Sodium Chloride 500 (mg/ Premix) 50 mls @ 100 mls/hr IV Q6H [facility] Last Admin: 06/01/18 08:15 Dose: 100 mls/hr Sodium Chloride (Normal Saline) 1,000 mls @ 125 mls/hr IV ASDIRECTED [facility] Last Admin: 06/01/18 08:53 Dose: 125 mls/hr Sodium Chloride (Normal Saline) 1,000 mls @ 999 mls/hr IV Q1H [facility] Stop: 05/31/18 02:30 Last Admin: 05/31/18 03:19 Dose: 999 mls/hr Sodium Chloride (Normal Saline) Confirm Administered Dose 100 mls @ as directed .ROUTE .STK-MED ONE Stop: 05/31/18 01:30 Last Admin: 05/31/18 02:42 Dose: 100 mls/hr Vancomycin HCl 750 mg/ Sodium (Chloride) 250 mls @ 166.667 mls/hr IV Q8H [facility] Last Admin: 06/01/18 02:10 Dose: 166.667 mls/hr Sodium Chloride (Normal Saline) 1,000 mls @ 999 mls/hr IV Q1H [facility] Stop: 05/31/18 07:59 Last Admin: 05/31/18 09:35 Dose: Not Given Norepinephrine Bitartrate 4 mg (/ Dextrose/Water) 250 mls @ 7.5 mls/hr IV TITRATE [facility]CEY; Protocol Piperacillin Sod/Tazobactam (Sod 4.5 gm/ Sodium Chloride) 100 mls @ 25 mls/hr IV Q8H [facility] Stop: 06/02/18 14:00 Last Admin: 06/02/18 09:54 Dose: 25 mls/hr Magnesium Sulfate/Dextrose 1 (gm/ Premix) 100 mls @ 100 mls/hr IV ONETIME ONE Stop: 05/31/18 12:59 Last Admin: 05/31/18 11:06 Dose: 100 mls/hr Magnesium Sulfate 2 gm/ Premix 50 mls @ 25 mls/hr IV ONETIME ONE Stop: 06/02/18 09:59 Last Admin: 06/02/18 09:54 Dose: 25 mls/hr Methenamine Hippurate (Methenamine Hippurate) 1 gm PO DAILY [facility] Last Admin: 06/03/18 08:45 Dose: Not Given Non-Formulary Medication (Sucralfate [Sucralfate]) 1 gm PO ASDIRECTED PRN PRN Reason: Heartburn Non-Formulary Medication (Potassium [Potassium]) 99 mg PO DAILY [facility] Non-Formulary Medication (Promethazine Hcl [Phenergan]) 25 mg TOP Q6H PRN PRN Reason: Nausea Oseltamivir Phosphate (Tamiflu) 75 mg PO ONETIME [facility] Stop: 05/30/18 22:29 Last Admin: 05/30/18 22:47 Dose: 75 mg Potassium Chloride (Klor-Con M20) 20 meq PO DAILY [facility] Last Admin: 05/31/18 09:22 Dose: 20 meq Potassium Chloride (Klor-Con M20) 40 meq PO Q4H [facility] Stop: 05/31/18 05:16 Last Admin: 05/31/18 09:34 Dose: Not Given Potassium Chloride (Klor-Con M20) 40 meq PO Q4H [facility] Stop: 06/01/18 12:31 Last Admin: 06/01/18 12:29 Dose: 40 meq Potassium Chloride (Klor-Con M20) 40 meq PO Q4H [facility] Stop: 06/02/18 17:01 Last Admin: 06/02/18 16:34 Dose: 40 meq Psyllium Husk (Metamucil Sugar Free) 1 packet PO DAILY [facility] Last Admin: 06/01/18 08:26 Dose: 1 packet Vancomycin HCl (Pharmacy To Dose - Vancomycin) 1 dose .XX ASDIRECTED [facility] - Exam General: Reports: Alert, Oriented, Cooperative, No Acute Distress HEENT: Reports: Pupils Equal, Pupils Reactive, EOMI, Mucous Membr. Moist/[place] Neck: Reports: Supple Lungs: Reports: Clear to Auscultation, Normal Respiratory Effort Cardiovascular: Reports: Regular Rate, Regular Rhythm, Other (port-a-cath acess line) GI/Abdominal Exam: Normal Bowel Sounds, Soft, Non-Tender, No Organomegaly, No Distention, No Abnormal Bruit (Female) Exam: Deferred Rectal (Female) Exam: Deferred Back Exam: Reports: Normal Inspection, Full Range of Motion Extremities: Normal Inspection, Normal Range of Motion, Non-Tender, No Pedal Edema, Normal Capillary Refill Skin: Reports: Warm, Dry, Intact Neurological: Reports: No New Focal Deficit Psy/Mental Status: Reports: Alert, Normal Affect, Normal Mood
[2018-06-04] MEDS ORDERED: METHENAMINE HIPPURATE 1 GM PO SCH (09:00)
== END 2018-06-03 11:50 | disposition home or self-care (01) | DRG 466 ==
LOC: JD.ED 19:36 → JD.MS 23:31 → OBSVTOIN 05-31 07:09 → JD.ICU 05-31 08:45 → JD.MS 06-02 06:40
PROVIDERS: ADMIT Internal Medicine; ATTEND Internal Medicine
DX: T83.518A Infection and inflammatory reaction due to other urinary catheter, initial encounter (principal); A41.9 Sepsis, unspecified organism; E83.42 Hypomagnesemia; N31.9 Neuromuscular dysfunction of bladder, unspecified; E27.49 Other adrenocortical insufficiency; N39.0 Urinary tract infection, site not specified; J10.1 Influenza due to other identified influenza virus with other respiratory manifestations; B96.20 Unspecified Escherichia coli [E. coli] as the cause of diseases classified elsewhere; J20.2 Acute bronchitis due to streptococcus; Y84.6 Urinary catheterization as the cause of abnormal reaction of the patient, or of later complication, without mention of misadventure at the time of the procedure; K52.3 Indeterminate colitis; R33.9 Retention of urine, unspecified; E05.90 Thyrotoxicosis, unspecified without thyrotoxic crisis or storm; D63.8 Anemia in other chronic diseases classified elsewhere; E87.6 Hypokalemia; Z87.01 Personal history of pneumonia (recurrent); Z88.8 Allergy status to other drugs, medicaments and biological substances; Z79.899 Other long term (current) drug therapy; Z92.21 Personal history of antineoplastic chemotherapy; Z85.72 Personal history of non-Hodgkin lymphomas; Z87.442 Personal history of urinary calculi
CPT/HCPCS: 36415; 51701; 51702; 71045; 71045-26; 80048; 80053; 81001; 82533; 83605; 83735; 84145; 84703; 85007; 85025; 85027; 85652; 86140; 86738; 87040; 87070; 87081; 87086; 87088; 87184; 87186; 87205; 87430; 87486; 87581; 87632; 87798; 87804; 87899; 93005; 93010; 96361; 96365; 96523; 99284; 99285-25; A9270-GY; J1642; J1650; J1720; J2185; J2405; J2543; J3370; J3475; J7030; J7040; J7050; J7120

== ENCOUNTER 2019-05-11 23:54 | Emergency (ER) | payer BC ==
[2019-05-12 00:40] VITALS: BP 101/76; PULSE 124
--- NOTE | 2019-05-12 00:53 | EDM.PDOC ---
ED HPI GENERAL MEDICAL PROBLEM - General Chief Complaint: Abdominal Pain Stated Complaint: throwing up and currently recieving treatment Time Seen by Provider: 05/12/19 00:48 - History of Present Illness INITIAL COMMENTS - FREE TEXT/NARRATIVE: 29-year-old female presents the emergency room with severe nausea and vomiting. This started roughly 8 hours prior to arrival prior to this the patient has not been feeling well for the last for 5 days she said little bit of a cough and runny nose this is resolved and then she developed the nausea and vomiting. Patient has a significant history of Hodgkin's lymphoma. Patient denies any cough no headache no neck pain. She has some abdominal discomfort with vomiting otherwise really no abdominal discomfort. She has no symptoms to suggest urinary tract infection states that after she had her ileostomy placed she stopped having urinary tract infections. She has had some chills but denies any fevers and the chills of been associated with the nausea and vomiting. So she has had for 5 days of illness here started out his URI-like symptoms with a mild cough that started to improve followed by nausea and vomiting that started this evening. Abdomen Pain Score (Numeric/FACES): 10 - Related Data Allergies Allergy/AdvReac Type Severity Reaction Status Date / Time brentuximab vedotin Allergy Difficulty Verified 05/12/19 00:40 Breathing Home Meds: Home Meds Promethazine HCl [Phenergan] 25 mg TOP Q6H PRN 03/17/16 [History] medroxyPROGESTERone Acetate [Depo-Provera] 150 mg IM ASDIRECTED 03/17/16 [ History] Gabapentin [Neurontin] 400 mg PO TID 06/23/17 [History] Ondansetron [Zofran ODT] 8 mg PO Q8HR PRN 06/23/17 [History] Ascorbic Acid [Vitamin C] 1,000 mg PO DAILY 05/30/18 [History] Budesonide [Budesonide EC] 12 mg PO DAILY 05/30/18 [History] Dicyclomine HCl [Bentyl] 10 mg PO Q6HR PRN 05/30/18 [History] Estrogens, Conjugated [Premarin Vaginal Crm] 1 applic VAG MOWEFR 05/30/18 [ History] Sucralfate 1 gm PO QID 05/30/18 [History] bisacodyL [Dulcolax] 10 mg RC ASDIRECTED PRN 05/30/18 [History] Potassium 2 tab PO DAILY 05/31/18 [History] Psyllium Husk [Psyllium Fiber] 3 cap PO TID 05/31/18 [History] Methenamine Hippurate [Hiprex] 1 gram PO DAILY 06/02/18 [History] Levofloxacin [Levaquin] 500 mg PO DAILY #4 tablet 06/03/18 [Rx] Oseltamivir [Tamiflu] 75 mg PO BID #3 cap 06/03/18 [Rx] Saccharomyces Boulardii [Florastor] 500 mg PO BID #10 cap 06/03/18 [Rx] Levofloxacin 750 mg PO DAILY #7 tablet 11/10/18 [Rx] Oxybutynin 5 mg PO TID PRN #21 tab 11/10/18 [Rx] Ondansetron [Zofran ODT] 4 - 8 mg PO Q6H PRN #16 tab.dis 05/12/19 [Rx] Past Medical History HEENT History: Reports: None Cardiovascular History: Reports: None Respiratory History: Reports: Pneumonia, Recurrent, Other (See Below) 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 Gastrointestinal History: Reports: Inflammatory Bowel Disease Other Gastrointestinal History: Crohn's disease Genitourinary History: Reports: Neurogenic Bladder, Renal Calculus, Retention, Urinary, Other (See Below) Other Genitourinary History: self 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 - Infectious Disease History Infectious Disease History: Reports: Chicken Pox, Influenza - Past Surgical History HEENT Surgical History: Reports: Oral Surgery, Tonsillectomy GI Surgical History: Reports: Colonoscopy, Colostomy, EGD Oncologic Surgical History: Reports: Bone Marrow Transplant, Other (See Below) Other Oncologic Surgeries/Procedures: stem cell transplant Social & Family History - Family History Family Medical History: Noncontributory Cardiac: Reports: [place] Endocrine/Metabolic: Reports: Diabetes, Type I Oncologic: Reports: Breast - Tobacco Use Smoking Status *Q: Never Smoker - Caffeine Use Caffeine Use: Reports: Coffee, Tea - Recreational Drug Use Recreational Drug Use: No - Living Situation & Occupation Living situation: Reports: , with Spouse, with Family (2 kids) Occupation: Unemployed ED ROS GENERAL - Review of Systems Review Of Systems: See Below Constitutional: Reports: Chills. Denies: Night Sweats HEENT: Reports: Rhinitis (This is pretty much resolved) Respiratory: Reports: Cough (This resolved with the runny nose) Cardiovascular: Reports: No Symptoms Endocrine: Reports: No Symptoms GI/Abdominal: Reports: Nausea, Vomiting. Denies: Constipation, Diarrhea Musculoskeletal: Reports: No Symptoms Skin: Reports: No Symptoms Neurological: Reports: No Symptoms ED EXAM, GI/ABD - Physical Exam Exam: See Below Exam Limited By: No Limitations General Appearance: Alert, Moderate Distress (With the nausea) Eyes: Bilateral: Normal Appearance Ears: Normal External Exam, Normal Canal, Hearing Grossly Normal, Normal TMs Nose: Normal Inspection, Normal Mucosa, No Blood Throat/Mouth: Normal Inspection, Normal Lips, Normal Teeth, Normal Gums, Normal Oropharynx, Normal Voice, No Airway Compromise Head: Atraumatic, Normocephalic Neck: Normal Inspection, Supple, Non-Tender, Full Range of Motion. No: Lymphadenopathy (L), Lymphadenopathy (R) Respiratory/Chest: No Respiratory Distress, Lungs Clear, Normal Breath Sounds, Chest Non-Tender Cardiovascular: Regular Rate, Rhythm, No Edema, No Murmur GI/Abdominal Exam: Normal Bowel Sounds, Soft, Other (. Tenderness with palpation other than a little bit of discomfort at the base the ribs anteriorly probably from throwing up no epigastric discomfort no other palpable discomfort watery stool in the ileostomy more so than normal) Back Exam: Normal Inspection. No: CVA Tenderness (L), CVA Tenderness (R) Extremities: Normal Inspection, No Pedal Edema Neurological: Alert, Oriented, Normal Cognition Skin Exam: Warm, Dry, Intact Course - Vital Signs Last Recorded V/S: Last Vital Signs Temp 36.4 C 05/12/19 00:35 Pulse 124 H 05/12/19 00:35 Resp 20 05/12/19 00:35 BP 101/76 05/12/19 00:35 Pulse Ox 96 05/12/19 00:35 - Orders/Labs/Meds Orders: Active Orders 24 hr Category Date Time Status CULTURE URINE [RM] Stat Lab 05/12/19 04:09 Received Labs: Laboratory Tests 05/12/19 05/12/19 05/12/19 Range/Units 01:08 01:08 04:09 WBC 15.27 H (3.98-10.04) K/mm3 RBC 6.42 H (3.98-5.22) M/mm3 Hgb 18.0 H D (11.2-15.7) gm/dl Hct 52.6 H (34.1-44.9) % MCV 81.9 (79.4-94.8) fl MCH 28.0 (25.6-32.2) pg MCHC 34.2 (32.2-35.5) g/dl RDW Std Deviation 43.9 (36.4-46.3) fL Plt Count 344 (182-369) K/mm3 MPV 10.0 (9.4-12.3) fl Neutrophils % (Manual) 56 (40-60) % Band Neutrophils % 19 H (0-10) % Lymphocytes % (Manual) 14 L (20-40) % Atypical Lymphs % 0 % Monocytes % (Manual) 9 (2-10) % Eosinophils % (Manual) 2 (0.7-5.8) % Basophils % (Manual) 0 L (0.1-1.2) Platelet Estimate Adequate Plt Morphology Comment Normal RBC Morph Comment Normal Sodium 138 (136-145) mEq/L Potassium 4.0 (3.5-5.1) mEq/L Chloride 100 (98-107) mEq/L Carbon Dioxide 16 L D (21-32) mEq/L Anion Gap 26.0 H (5-15) BUN 14 (7-18) mg/dL Creatinine 1.4 H (0.55-1.02) mg/dL Est Cr Clr Drug Dosing 51.20 mL/min Estimated GFR (MDRD) 44 (>60) mL/min BUN/Creatinine Ratio 10.0 L (14-18) Glucose 196 H (74-106) mg/dL Calcium 10.6 H D (8.5-10.1) mg/dL Magnesium 2.2 (1.8-2.4) mg/dl Total Bilirubin 0.5 (0.2-1.0) mg/dL AST 18 (15-37) U/L ALT 26 (14-59) U/L Alkaline Phosphatase 141 H (46-116) U/L Total Protein 9.9 H (6.4-8.2) g/dl Albumin 5.6 H (3.4-5.0) g/dl Globulin 4.3 gm/dL Albumin/Globulin Ratio 1.3 (1-2) Urine Color Raquel H (Yellow) Urine Appearance Turbid H (Clear) Urine pH 5.5 (5.0-8.0) Ur Specific [place] > or = 1.030 (1.005-1.030) Urine Protein 2+ H (Negative) Urine Glucose (UA) Negative (Negative) Urine Ketones Trace H (Negative) Urine Occult Blood 3+ H (Negative) Urine Nitrite Negative (Negative) Urine Bilirubin 2+ H (Negative) Urine Urobilinogen 0.2 (0.2-1.0) Ur Leukocyte Esterase Trace H (Negative) Urine RBC 20-30 H (0-5) /hpf Urine WBC 10-20 H (0-5) /hpf Ur Squamous Epith Cells 10-20 H (0-5) /hpf Urine Bacteria Moderate H (FEW) /hpf Hyaline Casts 20-30 H (0-5) /lpf Fine Granular Casts 0-5 (0-5) /lpf Broad Casts 5-10 H (0-5) /hpf Urine Mucus Many H (FEW) /hpf Meds: Medications Discontinued Medications Generic Name Dose Route Start Last Admin Trade Name Freq PRN Reason Stop Dose Admin Hydromorphone HCl 0.5 mg 05/12/19 00:55 05/12/19 01:24 Dilaudid IVPUSH 05/12/19 00:56 0.5 mg ONETIME ONE Administration Lactated Ringer's 1,000 mls @ 999 mls/hr 05/12/19 00:55 05/12/19 01:21 Ringers, Lactated IV 05/12/19 01:55 999 mls/hr .BOLUS ONE Administration Magnesium Sulfate/Dextrose 1 100 mls @ 100 mls/hr 05/12/19 00:55 05/12/19 01: 32 gm/ Premix IV 05/12/19 01:54 Not Given ONETIME ONE Magnesium Sulfate 2 gm/ Premix 50 mls @ 25 mls/hr 05/12/19 01:16 05/12/19 01: 28 IV 05/12/19 03:15 25 mls/hr ONETIME ONE Administration Lactated Ringer's 1,000 mls @ 999 mls/hr 05/12/19 03:52 05/12/19 04:08 Ringers, Lactated IV 05/12/19 04:52 999 mls/hr .BOLUS ONE Administration Ondansetron HCl 4 mg 05/12/19 00:55 05/12/19 01:24 Zofran IVPUSH 05/12/19 00:56 4 mg ONETIME ONE Administration - Re-Assessments/Exams Free Text/Narrative Re-Assessment/Exam: 05/12/19 03:55 Patient is doing much better after a liter of fluids and magnesium and some Zofran her white count was quite elevated with a left shift because of this is not well understood were still awaiting a urinalysis 05/12/19 05:18 Patient continues to do well she received a second liter of fluid she has some Zofran at home but not sure how much she would like to go home at this point. I am a little concerned about her white count and her left shift she is not hurting anywhere she does not have a headache her neck is supple breath sounds clear abdomen soft nontender palpated after normal breath sounds auscultated. Discussed further observation and the patient really would like to go home. Departure - Departure Time of Disposition: 05:19 Disposition: Home, Self-Care 01 Clinical Impression: Gastroenteritis - Discharge Information Prescriptions: Ondansetron [Zofran ODT] 4 - 8 mg PO Q6H PRN #16 tab.dis PRN Reason: Nausea/Vomiting Instructions: Viral Gastroenteritis, Adult, [id number] Referrals: Marge Winn PA-C [Primary Care Provider] - Forms: ED Department Discharge Additional Instructions: Return to the emergency room with any questions problems or worsening symptoms. Use the Zofran every every 6 hours 1 or 2 tablets as needed for nausea and vomiting. Clear liquid diet for the next 24 hours then slowly advance as tolerated Sepsis Event Note - Evaluation Sepsis Screening Result: No Definite Risk - Focused Exam Vital Signs: Vital Signs Temp Pulse Resp BP Pulse Ox 05/12/19 00:35 36.4 C 124 H 20 101/76 96 Date Exam was Performed: 05/12/19 Time Exam was Performed: 05:35 - My Orders Last 24 Hours: My Active Orders 05/12/19 04:09 CULTURE URINE [RM] Stat - Assessment/Plan Last 24 Hours: My Active Orders 05/12/19 04:09 CULTURE URINE [] Stat
[2019-05-12] MEDS ORDERED: Ondansetron 4 MG/2 ML SDV IVPUSH ONE (00:55)
[2019-05-12] MEDS ORDERED: Lactated Ringers 1,000 ML IV ONE ×2 (00:55→03:52)
[2019-05-12] MEDS ORDERED: HYDROmorphone 0.5 MG/0.5 ML Syringe IVPUSH ONE (00:55)
[2019-05-12] MEDS ORDERED: Magnesium Sulfate/Water 2 GM in Premix Bag 1 BAG IV ONE (01:16)
== END 2019-05-12 05:38 | disposition home or self-care (01) ==
LOC: JD.ED 23:54
DX: K52.9 Noninfective gastroenteritis and colitis, unspecified (principal); E05.90 Thyrotoxicosis, unspecified without thyrotoxic crisis or storm; C81.90 Hodgkin lymphoma, unspecified, unspecified site; Z88.1 Allergy status to other antibiotic agents; Z79.899 Other long term (current) drug therapy; Z85.118 Personal history of other malignant neoplasm of bronchus and lung
CPT/HCPCS: 36415; 80053; 81001; 83735; 85007; 85027; 87086; 96361; 96365; 96366; 96375; 99284; J1170; J2405; J3475; J7120; 99283

== ENCOUNTER 2019-05-13 10:47 | Emergency (ER) | payer BC ==
[2019-05-13 11:03] VITALS: BP 95/65; PULSE 134
--- NOTE | 2019-05-13 11:03 | EDM.PDOC ---
ED HPI GENERAL MEDICAL PROBLEM - General Chief Complaint: Gastrointestinal Problem Stated Complaint: CRAMPING/CAN'T KEEP ANYTHING DOWN Time Seen by Provider: 05/13/19 11:02 - History of Present Illness INITIAL COMMENTS - FREE TEXT/NARRATIVE: 29-year-old female returns to the emergency room with worsening nausea vomiting and has developed some stomach cramps. I saw the patient here yesterday morning with what seemed like an acute gastroenteritis. She has a complicated history she has an ileostomy in place secondary to Crohn's disease and resection of her colon. She has a 3-year history of Hodgkin's lymphoma and is currently taking Keytruda for this her last dose was April 10 she used to get this every 6 weeks now she gets it every 3 weeks. The patient developed nausea and vomiting Tuesday afternoon and afternoon noticed increased discharge from her ileostomy bag. She had a cough without a fever for several days prior to this. The cough seems to be improving - Related Data Allergies Allergy/AdvReac Type Severity Reaction Status Date / Time brentuximab vedotin Allergy Difficulty Verified 05/12/19 00:40 Breathing Home Meds: Home Meds Gabapentin [Neurontin] 400 mg PO TID 06/23/17 [History] Ascorbic Acid [Vitamin C] 1,000 mg PO DAILY 05/30/18 [History] Potassium 2 tab PO DAILY 05/31/18 [History] Methenamine Hippurate [Hiprex] 1 gram PO DAILY 06/02/18 [History] Ondansetron [Zofran ODT] 4 - 8 mg PO Q6H PRN #16 tab.dis 05/12/19 [Rx] Past Medical History HEENT History: Reports: None Cardiovascular History: Reports: None Respiratory History: Reports: Pneumonia, Recurrent, Other (See Below) 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 Gastrointestinal History: Reports: Inflammatory Bowel Disease Other Gastrointestinal History: Crohn's disease Genitourinary History: Reports: Neurogenic Bladder, Renal Calculus, Retention, Urinary, Other (See Below) Other Genitourinary History: self cath at home;end illeostomy [employer]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 - Infectious Disease History Infectious Disease History: Reports: Chicken Pox, Influenza - Past Surgical History HEENT Surgical History: Reports: Oral Surgery, Tonsillectomy GI Surgical History: Reports: Colonoscopy, Colostomy, EGD Oncologic Surgical History: Reports: Bone Marrow Transplant, Other (See Below) Other Oncologic Surgeries/Procedures: stem cell transplant Social & Family History - Family History Family Medical History: Noncontributory Cardiac: Reports: [place] Endocrine/Metabolic: Reports: Diabetes, Type I Oncologic: Reports: Breast - Caffeine Use Caffeine Use: Reports: Coffee, Tea - Living Situation & Occupation Living situation: Reports: , with Spouse, with Family (2 kids) Occupation: Unemployed ED ROS GENERAL - Review of Systems Review Of Systems: See Below Constitutional: Reports: Weakness, Fatigue. Denies: Fever, Chills HEENT: Reports: Rhinitis (This seems to be improving) Respiratory: Reports: Cough (This is improving). Denies: Shortness of Breath, Sputum Cardiovascular: Reports: No Symptoms GI/Abdominal: Reports: Abdominal Pain, Diarrhea, Nausea, Vomiting ED EXAM, GI/ABD - Physical Exam Exam: See Below Exam Limited By: No Limitations General Appearance: Alert, Mild Distress Eyes: Bilateral: Normal Appearance Ears: Normal External Exam, Normal Canal, Hearing Grossly Normal, Normal TMs Nose: Normal Inspection, Normal Mucosa, No Blood Throat/Mouth: Normal Inspection, Normal Lips, Normal Teeth, Normal Gums, Normal Oropharynx, Normal Voice, No Airway Compromise Head: Atraumatic, Normocephalic Neck: Normal Inspection. No: Lymphadenopathy (L), Lymphadenopathy (R) Respiratory/Chest: No Respiratory Distress, Lungs Clear, Normal Breath Sounds Cardiovascular: Normal Peripheral Pulses, Regular Rate, Rhythm, No Edema GI/Abdominal Exam: Normal Bowel Sounds, Soft, Other (Discomfort with palpation no rigidity rebound or guarding noted. Watery stool in the ileostomy bag) Back Exam: Normal Inspection. No: CVA Tenderness (L), CVA Tenderness (R) Extremities: Normal Inspection, No Pedal Edema Neurological: Alert, Oriented, Normal Cognition Course - Vital Signs Last Recorded V/S: Last Vital Signs Temp 36.3 C 05/13/19 10:57 Pulse 134 H 05/13/19 10:57 Resp 18 05/13/19 10:57 BP 95/65 05/13/19 10:57 Pulse Ox 96 05/13/19 10:57 - Orders/Labs/Meds Orders: Active Orders 24 hr Category Date Time Status Implanted Port Access [RC] DAILY Care 05/13/19 11:48 Active CULTURE BLOOD [BC] Stat Lab 05/13/19 11:32 Received CULTURE BLOOD [BC] Stat Lab 05/13/19 11:50 Received CULTURE STOOL + SHIGATOX [RM] Stat Lab 05/13/19 14:44 Received CULTURE URINE [RM] Stat Lab 05/13/19 13:11 Received Oseltamivir [Tamiflu] Med 05/14/19 14:30 Once 30 mg PO ONETIME ONE Sodium Chloride 0.9% [Normal Saline] 1,000 ml Med 05/13/19 13:30 Active IV ASDIRECTED Blood Culture x2 Reflex Set [OM.PC] Stat Oth 05/13/19 11:20 Ordered Medication Orders Sodium Chloride (Normal Saline) 1,000 mls @ 150 mls/hr IV ASDIRECTED CHAUNCEY Last Admin: 05/13/19 13:15 Dose: 150 mls/hr Oseltamivir Phosphate (Tamiflu) 30 mg PO ONETIME ONE Stop: 05/14/19 14:31 Labs: Laboratory Tests 05/13/19 05/13/19 05/13/19 Range/Units 11:32 11:35 11:35 WBC 9.03 (3.98-10.04) K/mm3 RBC 6.80 H (3.98-5.22) M/mm3 Hgb 19.0 H (11.2-15.7) gm/dl Hct 54.9 H (34.1-44.9) % MCV 80.7 (79.4-94.8) fl MCH 27.9 (25.6-32.2) pg MCHC 34.6 (32.2-35.5) g/dl RDW Std Deviation 42.7 (36.4-46.3) fL Plt Count 333 (182-369) K/mm3 MPV 10.4 (9.4-12.3) fl Neutrophils % (Manual) 64 H (40-60) % Band Neutrophils % 0 (0-10) % Lymphocytes % (Manual) 18 L (20-40) % Atypical Lymphs % 0 % Monocytes % (Manual) 18 H (2-10) % Eosinophils % (Manual) 0 L (0.7-5.8) % Basophils % (Manual) 0 L (0.1-1.2) Platelet Estimate Adequate Plt Morphology Comment See note Anisocytosis 2+ moderate RBC Morph Comment Abnormal Sodium 131 L (136-145) mEq/L Potassium 4.8 (3.5-5.1) mEq/L Chloride 93 L (98-107) mEq/L Carbon Dioxide 20 L (21-32) mEq/L Anion Gap 22.8 H (5-15) BUN 38 H (7-18) mg/dL Creatinine 3.4 H D (0.55-1.02) mg/dL Est Cr Clr Drug Dosing 21.08 mL/min Estimated GFR (MDRD) 16 (>60) mL/min BUN/Creatinine Ratio 11.2 L (14-18) Glucose 107 H (74-106) mg/dL Lactic Acid 1.9 (0.4-2.0) mmol/L Calcium 10.0 (8.5-10.1) mg/dL Total Bilirubin 0.6 (0.2-1.0) mg/dL AST 24 (15-37) U/L ALT 24 (14-59) U/L Alkaline Phosphatase 137 H (46-116) U/L Total Protein 9.4 H (6.4-8.2) g/dl Albumin 5.2 H (3.4-5.0) g/dl Globulin 4.2 gm/dL Albumin/Globulin Ratio 1.2 (1-2) Urine Color (Yellow) Urine Appearance (Clear) Urine pH (5.0-8.0) Ur Specific [place] (1.005-1.030) Urine Protein (Negative) Urine Glucose (UA) (Negative) Urine Ketones (Negative) Urine Occult Blood (Negative) Urine Nitrite (Negative) Urine Bilirubin (Negative) Urine Urobilinogen (0.2-1.0) Ur Leukocyte Esterase (Negative) Urine RBC (0-5) /hpf Urine WBC (0-5) /hpf Ur Epithelial Cells (0-5) /hpf Urine Bacteria (FEW) /hpf Hyaline Casts (0-5) /lpf Urine Mucus (FEW) /hpf Urine HCG, Qual (NEGATIVE) 02/02/20 02/02/20 Range/Units 13:11 13:11 WBC (3.98-10.04) K/mm3 RBC (3.98-5.22) M/mm3 Hgb (11.2-15.7) gm/dl Hct (34.1-44.9) % MCV (79.4-94.8) fl MCH (25.6-32.2) pg MCHC (32.2-35.5) g/dl RDW Std Deviation (36.4-46.3) fL Plt Count (182-369) K/mm3 MPV (9.4-12.3) fl Neutrophils % (Manual) (40-60) % Band Neutrophils % (0-10) % Lymphocytes % (Manual) (20-40) % Atypical Lymphs % % Monocytes % (Manual) (2-10) % Eosinophils % (Manual) (0.7-5.8) % Basophils % (Manual) (0.1-1.2) Platelet Estimate Plt Morphology Comment Anisocytosis RBC Morph Comment Sodium (136-145) mEq/L Potassium (3.5-5.1) mEq/L Chloride (98-107) mEq/L Carbon Dioxide (21-32) mEq/L Anion Gap (5-15) BUN (7-18) mg/dL Creatinine (0.55-1.02) mg/dL Est Cr Clr Drug Dosing mL/min Estimated GFR (MDRD) (>60) mL/min BUN/Creatinine Ratio (14-18) Glucose (74-106) mg/dL Lactic Acid (0.4-2.0) mmol/L Calcium (8.5-10.1) mg/dL Total Bilirubin (0.2-1.0) mg/dL AST (15-37) U/L ALT (14-59) U/L Alkaline Phosphatase (46-116) U/L Total Protein (6.4-8.2) g/dl Albumin (3.4-5.0) g/dl Globulin gm/dL Albumin/Globulin Ratio (1-2) Urine Color Yellow (Yellow) Urine Appearance Slt cloudy H (Clear) Urine pH 5.5 (5.0-8.0) Ur Specific [place] 1.025 (1.005-1.030) Urine Protein 2+ H (Negative) Urine Glucose (UA) Negative (Negative) Urine Ketones Trace H (Negative) Urine Occult Blood 3+ H (Negative) Urine Nitrite Negative (Negative) Urine Bilirubin 1+ H (Negative) Urine Urobilinogen 0.2 (0.2-1.0) Ur Leukocyte Esterase 2+ H (Negative) Urine RBC 40-50 H (0-5) /hpf Urine WBC 30-40 H (0-5) /hpf Ur Epithelial Cells 5-10 H (0-5) /hpf Urine Bacteria Moderate H (FEW) /hpf Hyaline Casts 0-5 (0-5) /lpf Urine Mucus Few (FEW) /hpf Urine HCG, Qual Negative (NEGATIVE) Meds: Medications Generic Name Dose Route Start Last Admin Trade Name Freq PRN Reason Stop Dose Admin Sodium Chloride 1,000 mls @ 150 mls/hr 05/13/19 13:30 05/13/19 13:15 Normal Saline IV 150 mls/hr ASDIRECTED CHAUNCEY Administration Oseltamivir Phosphate 30 mg 05/14/19 14:30 Tamiflu PO 05/14/19 14:31 ONETIME ONE Discontinued Medications Generic Name Dose Route Start Last Admin Trade Name Freq PRN Reason Stop Dose Admin Fentanyl 50 mcg 05/13/19 11:47 05/13/19 11:56 Sublimaze IVPUSH 05/13/19 11:48 50 mcg ONETIME ONE Administration Lactated Ringer's 1,000 mls @ 999 mls/hr 05/13/19 11:15 05/13/19 11:42 Ringers, Lactated IV 05/13/19 12:15 999 mls/hr .BOLUS ONE Administration Lactated Ringer's 1,000 mls @ 999 mls/hr 05/13/19 11:17 05/13/19 11:42 Ringers, Lactated IV 05/13/19 12:17 999 mls/hr .BOLUS ONE Administration Ceftriaxone Sodium 1 gm/ 100 mls @ 200 mls/hr 05/13/19 14:30 05/13/19 14:50 Sodium Chloride IV 05/13/19 14:59 200 mls/hr ONETIME ONE Administration Ondansetron HCl 4 mg 05/13/19 11:19 05/13/19 11:41 Zofran IVPUSH 05/13/19 11:20 4 mg ONETIME ONE Administration - Re-Assessments/Exams Free Text/Narrative Re-Assessment/Exam: 05/13/19 14:[address] Mcclain at [facility] customer acquisition manager for Dr. Wallace patient's regular oncologist. His recommendation is to treat there is a remote possibility of getting autoimmune gastroenteritis secondary to the Keytruda. And his recommendation would be 60 mg of prednisone for 5 days or perhaps a taper. This diagnosis can be made if no other diagnosis is found after I talked to him , her influenza came back positive. Patient will be started on Tamiflu with the positive influenza B. The patient's urine could be chronic but I cannot exclude a urinary tract infection she will be started on Rocephin 1 g case discussed with Dr. Palmer who will assume care after evaluating here in the emergency room. 05/13/19 15:37 The patient was evaluated by Dr. Palmer and Dr. Palmer feels the patient would be better served to go to [place] as the patient is immunocompromised. I talked to Dr. Beebe the hospitalist at [facility] in [place] who accepted the patient. The patient was discussed in detail with him Departure - Departure Time of Disposition: 15:01 Disposition: DC/Tfer to [facility] 02 Preliminary Cause of *Q: Sepsis & Multi System Organ Failure Clinical Impression: Influenza B, Gastroenteritis, Acute prerenal azotemia, Hyponatremia - Discharge Information Sepsis Event Note - Focused Exam Vital Signs: Vital Signs Temp Pulse Resp BP Pulse Ox 05/13/19 10:57 36.3 C 134 H 18 95/65 96 Date Exam was Performed: 05/13/19 Time Exam was Performed: 15:37 - My Orders Last 24 Hours: My Active Orders 05/13/19 11:20 Blood Culture x2 Reflex Set [OM.PC] Stat 05/13/19 11:32 CULTURE BLOOD [BC] Stat 05/13/19 11:48 Implanted Port Access [RC] DAILY 05/13/19 11:50 CULTURE BLOOD [BC] Stat 05/13/19 13:11 CULTURE URINE [RM] Stat 05/13/19 13:30 Sodium Chloride 0.9% [Normal Saline] 1,000 ml IV ASDIRECTED 05/13/19 14:44 CULTURE STOOL + SHIGATOX [RM] Stat 05/14/19 14:30 Oseltamivir [Tamiflu] 30 mg PO ONETIME ONE - Assessment/Plan Last 24 Hours: My Active Orders 05/13/19 11:20 Blood Culture x2 Reflex Set [OM.PC] Stat 05/13/19 11:32 CULTURE BLOOD [BC] Stat 05/13/19 11:48 Implanted Port Access [RC] DAILY 05/13/19 11:50 CULTURE BLOOD [BC] Stat 05/13/19 13:11 CULTURE URINE [RM] Stat 05/13/19 13:30 Sodium Chloride 0.9% [Normal Saline] 1,000 ml IV ASDIRECTED 05/13/19 14:44 CULTURE STOOL + SHIGATOX [RM] Stat 05/14/19 14:30 Oseltamivir [Tamiflu] 30 mg PO ONETIME ONE
[2019-05-13] MEDS ORDERED: Lactated Ringers 1,000 ML IV ONE ×2 (11:15→11:17)
[2019-05-13] MEDS ORDERED: Ondansetron 4 MG/2 ML SDV IVPUSH ONE ×2 (11:19→16:02)
[2019-05-13] MEDS ORDERED: fentaNYL 100 MCG/2 ML SDV IVPUSH ONE (11:47)
[2019-05-13] MEDS ORDERED: Sodium Chloride 0.9% 1,000 ML IV SCH (13:30)
[2019-05-13] MEDS ORDERED: cefTRIAXone 1 GM in Sodium Chloride 0.9% 100 ML IV ONE (14:30)
--- NOTE | 2019-05-13 15:45 | CR ---
Chest: Portable view of the chest was obtained. Comparison: Previous chest x-ray of 05/31/18. Right-sided infusion catheter is seen. Slight scarring is noted within the right upper lung. Lungs otherwise are clear with no acute parenchymal change. Heart size and mediastinum are normal. Bony structures are grossly intact. Impression: 1. Findings as noted above. 2. Nothing acute is appreciated on portable chest x-ray. Diagnostic code #2 Study was dictated in [place] Standard Time
[2019-05-13] MEDS ORDERED: Oseltamivir 30 MG Cap PO ONE (15:49)
[2019-05-13] MEDS ORDERED: Ondansetron 4 MG/2 ML SDV ONE (16:02)
[2019-05-14] MEDS ORDERED: Oseltamivir 30 MG Cap PO ONE ×2 (14:30→15:44)
== END 2019-05-13 14:45 ==
LOC: JD.ED 10:47 → JD.MS 14:45 → UNDOADMIN 14:45 → UNDODISIN 14:45
DX: K52.9 Noninfective gastroenteritis and colitis, unspecified (principal); J10.1 Influenza due to other identified influenza virus with other respiratory manifestations; E87.1 Hypo-osmolality and hyponatremia; R79.89 Other specified abnormal findings of blood chemistry; E05.90 Thyrotoxicosis, unspecified without thyrotoxic crisis or storm; Z88.8 Allergy status to other drugs, medicaments and biological substances; Z79.899 Other long term (current) drug therapy
CPT/HCPCS: 36415; 71045; 80053; 81001; 81025; 83605; 85007; 85027; 87040; 87046; 87086; 87088; 87186; 87427; 87804; 96361; 96374; 96375; 96376; 99285; A9270; J0696; J2405; J3010; J7030; J7050; J7120; 99284

== ENCOUNTER 2020-11-10 03:19 | Emergency (ER) | payer BC ==
[2020-11-10] MEDS ORDERED: Metoclopramide 10 MG/2 ML SDV IVPUSH ONE (03:40)
[2020-11-10] MEDS ORDERED: diphenhydrAMINE 50 MG/ML SDV IVPUSH ONE (03:40)
[2020-11-10] MEDS ORDERED: Sodium Chloride 0.9% 10 ML Syringe FLUSH PRN (03:40)
[2020-11-10] MEDS ORDERED: HYDROmorphone 0.5 MG/0.5 ML Syringe IVPUSH ONE (03:43)
[2020-11-10] MEDS: Lactated Ringers 1,000 ML IV SCH ×2 (03:51→05:00)
--- NOTE | 2020-11-10 05:06 | EDM.PDOC ---
ED HPI GENERAL MEDICAL PROBLEM - General Chief Complaint: Gastrointestinal Problem Stated Complaint: VOMITTING, DEHYDRATED, CRAMPING MUSCLES Time Seen by Provider: 11/10/20 03:35 Source of Information: Reports: Patient, Family History Limitations: Reports: No Limitations - History of Present Illness INITIAL COMMENTS - FREE TEXT/NARRATIVE: The patient presents with nausea, vomiting and muscle cramps. She has Hodgkin's lymphoma with mets. She is currently on immunotherapy. She said this started on Tuesday. She had some saline on Tuesday. She felt a little better for awhile but started up again. She took some zofran tonight and that did not help. She has a history of Crohn's disease and has an ileostomy. She has not been able to keep anything down. She has pain to her muscles and abdomen. She has no fever, chills, cough or chest pain. She does have a port. Onset: Gradual Duration: Day(s): Location: Reports: Abdomen, Generalized Quality: Reports: Other (cramping) Severity: Severe Improves with: Reports: None Worsens with: Reports: None Associated Symptoms: Reports: Nausea/Vomiting. Denies: Chest Pain, Cough, Fever/Chills, Headaches, Shortness of Breath Generalized Pain Score (Numeric/FACES): 8 - Related Data Allergies Allergy/AdvReac Type Severity Reaction Status Date / Time brentuximab vedotin Allergy Difficulty Verified 11/10/20 03:36 Breathing Home Meds: Home Meds Gabapentin [Neurontin] 400 mg PO TID 06/23/17 [History] Ascorbic Acid [Vitamin C] 1,000 mg PO DAILY 05/30/18 [History] Potassium 2 tab PO DAILY 05/31/18 [History] Methenamine Hippurate [Hiprex] 1 gram PO DAILY 06/02/18 [History] Ondansetron [Zofran ODT] 4 - 8 mg PO Q6H PRN #16 tab.dis 05/12/19 [Rx] Azithromycin [Zithromax] 250 mg PO DAILY #6 tab 11/10/20 [Rx] Past Medical History HEENT History: Reports: None Cardiovascular History: Reports: None Respiratory History: Reports: Pneumonia, Recurrent, Other (See Below) 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 Gastrointestinal History: Reports: Inflammatory Bowel Disease Other Gastrointestinal History: Crohn's disease Genitourinary History: Reports: Neurogenic Bladder, Renal Calculus, Retention, Urinary, Other (See Below) Other Genitourinary History: self cath at home;end illeostomy [employer] WORK[employer] History: Reports: Musculoskeletal History: Reports: None Other Musculoskeletal History: transverse melitis Neurological History: Reports: Other (See Below) Endocrine/Metabolic History: Reports: Hyperthyroidism Hematologic History: Reports: Anemia Immunologic History: Reports: Immunosuppression Other Immunologic History: Crohn's in remission, immunotherapy; stem cell transplant Oncologic (Cancer) History: Reports: Hodgkin's Lymphoma 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 - Infectious Disease History Infectious Disease History: Reports: Chicken Pox, Influenza - Past Surgical History HEENT Surgical History: Reports: Oral Surgery, Tonsillectomy Cardiovascular Surgical History: Reports: Other (See Below) GI Surgical History: Reports: Colonoscopy, Colostomy, EGD Oncologic Surgical History: Reports: Bone Marrow Transplant, Other (See Below) Other Oncologic Surgeries/Procedures: stem cell transplant Social & Family History - Family History Family Medical History: No Pertinent Family History Cardiac: Reports: [place] Endocrine/Metabolic: Reports: Diabetes, Type I Oncologic: Reports: Breast - Tobacco Use Tobacco Use Status *Q: Never Tobacco User - Caffeine Use Caffeine Use: Reports: Coffee, Tea - Living Situation & Occupation Living situation: Reports: , with Spouse, with Family (2 kids) Occupation: Unemployed ED ROS GENERAL - Review of Systems Review Of Systems: See Below Constitutional: Reports: No Symptoms HEENT: Reports: No Symptoms Respiratory: Reports: No Symptoms Cardiovascular: Reports: No Symptoms Endocrine: Reports: No Symptoms GI/Abdominal: Reports: Abdominal Pain, Nausea, Vomiting : Reports: No Symptoms Musculoskeletal: Reports: Muscle Pain ED EXAM, GI/ABD - Physical Exam Exam: See Below Exam Limited By: No Limitations General Appearance: Alert, No Apparent Distress Ears: Normal External Exam Nose: Normal Inspection Head: Atraumatic, Normocephalic Neck: Normal Inspection Respiratory/Chest: No Respiratory Distress, Lungs Clear, Normal Breath Sounds Cardiovascular: Regular Rate, Rhythm, No Edema, No Murmur GI/Abdominal Exam: Soft, No Organomegaly, No Mass, Tender (Moderate generalized tenderness) Extremities: Normal Inspection Course - Vital Signs Last Recorded V/S: Last Vital Signs Temp 97.0 F 11/10/20 03:32 Pulse 150 H 11/10/20 03:32 Resp 26 H 11/10/20 03:32 BP 117/67 11/10/20 03:32 Pulse Ox 100 11/10/20 03:32 - Orders/Labs/Meds Orders: Active Orders 24 hr Category Date Time Status Peripheral IV Care [RC] . DIRECTED Care 11/10/20 03:41 Active Abdomen Pelvis wo Cont [CT] Stat Exams 11/10/20 03:45 Taken BLOOD CULTURE [MREF] Stat Lab 11/10/20 03:45 Received BLOOD CULTURE [MREF] Stat Lab 11/10/20 04:05 Received CORONAVIRUS COVID-19 SOO [MOLEC] Stat Lab 11/10/20 03:55 Ordered REFLEX LACTIC ACID YES OR NO [CHEM] Routine Lab 11/10/20 04:33 Received Lactated Ringers [Ringers, Lactated] 1,000 ml Med 11/10/20 03:45 Active IV ASDIRECTED Sodium Chloride 0.9% [Saline Flush] Med 11/10/20 03:40 Active 10 ml FLUSH ASDIRECTED PRN ED Antiemetic Medication Reflex [OM.PC] Stat Oth 11/10/20 03:41 Ordered Peripheral IV Insertion Adult [OM.PC] Stat Oth 11/10/20 03:40 Ordered Medication Orders Lactated Ringer's (Ringers, Lactated) 1,000 mls @ 1,000 mls/hr IV ASDIRECTED CHAUNCEY Stop: 11/11/20 04:44 Last Admin: 11/10/20 05:00 Dose: 1,000 mls/hr Documented by: [id number] Infusion: 11/10/20 04:51 Dose: 1,000 mls/hr Documented by: [email or web address] Admin: 11/10/20 03:51 Dose: 1,000 mls/hr Documented by: [id number] Sodium Chloride (Sodium Chloride 0.9% 10 Ml Syringe) 10 ml FLUSH ASDIRECTED PRN PRN Reason: Keep Vein Open Last Admin: 11/10/20 04:00 Dose: 10 ml Documented by: [id number] Labs: Laboratory Tests 11/10/20 11/10/20 11/10/20 Range/Units 03:45 03:45 03:45 WBC 13.05 H (3.98-10.04) K/mm3 RBC 6.24 H (3.98-5.22) M/mm3 Hgb 18.4 H (11.2-15.7) gm/dl Hct 50.6 H (34.1-44.9) % MCV 81.1 (79.4-94.8) fl MCH 29.5 (25.6-32.2) pg MCHC 36.4 H (32.2-35.5) g/dl RDW Std Deviation 40.7 (36.4-46.3) fL Plt Count 246 D (182-369) K/mm3 MPV 10.3 (9.4-12.3) fl Neut % (Auto) 76.1 H (34.0-71.1) % Lymph % (Auto) 10.7 L (19.3-51.7) % [place] % (Auto) 12.8 H (4.7-12.5) % Eos % (Auto) 0.2 L (0.7-5.8) Baso % (Auto) 0.2 (0.1-1.2) % Neut # (Auto) 9.94 H (1.56-6.13) K/mm3 Lymph # (Auto) 1.40 (1.18-3.74) K/mm3 [place] # (Auto) 1.67 H (0.24-0.36) K/mm3 Eos # (Auto) 0.02 L (0.04-0.36) K/mm3 Baso # (Auto) 0.02 (0.01-0.08) K/mm3 Manual Slide Review Abnormal smear Sodium 136 (136-145) mEq/L Potassium 4.4 (3.5-5.1) mEq/L Chloride 98 (98-107) mEq/L Carbon Dioxide 20 L (21-32) mEq/L Anion Gap 22.4 H (5-15) BUN 37 H (7-18) mg/dL Creatinine 1.8 H D (0.55-1.02) mg/dL Est Cr Clr Drug Dosing 34.36 mL/min Estimated GFR (MDRD) 33 (>60) mL/min BUN/Creatinine Ratio 20.6 H (14-18) Glucose 148 H (70-99) mg/dL Lactic Acid (0.4-2.0) mmol/L Calcium 10.0 (8.5-10.1) mg/dL Magnesium 2.1 (1.8-2.4) mg/dL Total Bilirubin 0.5 (0.2-1.0) mg/dL AST 19 (15-37) U/L ALT 17 (14-59) U/L Alkaline Phosphatase 82 (46-116) U/L Total Protein 8.3 H (6.4-8.2) g/dl Albumin 4.6 (3.4-5.0) g/dl Globulin 3.7 gm/dL Albumin/Globulin Ratio 1.2 (1-2) HCG, Qual Negative (NEGATIVE) 11/10/20 Range/Units 03:45 WBC (3.98-10.04) K/mm3 RBC (3.98-5.22) M/mm3 Hgb (11.2-15.7) gm/dl Hct (34.1-44.9) % MCV (79.4-94.8) fl MCH (25.6-32.2) pg MCHC (32.2-35.5) g/dl RDW Std Deviation (36.4-46.3) fL Plt Count (182-369) K/mm3 MPV (9.4-12.3) fl Neut % (Auto) (34.0-71.1) % Lymph % (Auto) (19.3-51.7) % [place] % (Auto) (4.7-12.5) % Eos % (Auto) (0.7-5.8) Baso % (Auto) (0.1-1.2) % Neut # (Auto) (1.56-6.13) K/mm3 Lymph # (Auto) (1.18-3.74) K/mm3 [place] # (Auto) (0.24-0.36) K/mm3 Eos # (Auto) (0.04-0.36) K/mm3 Baso # (Auto) (0.01-0.08) K/mm3 Manual Slide Review Sodium (136-145) mEq/L Potassium (3.5-5.1) mEq/L Chloride (98-107) mEq/L Carbon Dioxide (21-32) mEq/L Anion Gap (5-15) BUN (7-18) mg/dL Creatinine (0.55-1.02) mg/dL Est Cr Clr Drug Dosing mL/min Estimated GFR (MDRD) (>60) mL/min BUN/Creatinine Ratio (14-18) Glucose (70-99) mg/dL Lactic Acid 2.1 H* (0.4-2.0) mmol/L Calcium (8.5-10.1) mg/dL Magnesium (1.8-2.4) mg/dL Total Bilirubin (0.2-1.0) mg/dL AST (15-37) U/L ALT (14-59) U/L Alkaline Phosphatase (46-116) U/L Total Protein (6.4-8.2) g/dl Albumin (3.4-5.0) g/dl Globulin gm/dL Albumin/Globulin Ratio (1-2) HCG, Qual (NEGATIVE) Meds: Medications Generic Name Dose Route Start Last Admin Trade Name Freq PRN Reason Stop Dose Admin Lactated Ringer's 1,000 mls @ 1,000 mls/hr 11/10/20 03:45 11/10/20 05:00 Ringers, Lactated IV 11/11/20 04:44 1,000 mls/hr ASDIRECTED CHAUNCEY Administration Sodium Chloride 10 ml 11/10/20 03:40 11/10/20 04:00 Sodium Chloride 0.9% 10 Ml Syringe FLUSH 10 ml ASDIRECTED PRN Administration Keep Vein Open Discontinued Medications Generic Name Dose Route Start Last Admin Trade Name Freq PRN Reason Stop Dose Admin Diphenhydramine HCl 25 mg 11/10/20 03:40 11/10/20 03:52 Diphenhydramine 50 Mg/Ml Sdv IVPUSH 11/10/20 03:41 25 mg ONETIME ONE Administration Hydromorphone HCl 0.5 mg 11/10/20 03:43 11/10/20 03:56 Hydromorphone 0.5 Mg/0.5 Ml Syringe IVPUSH 11/10/20 03:44 0.5 mg ONETIME ONE Administration Metoclopramide HCl 10 mg 11/10/20 03:40 11/10/20 03:52 Metoclopramide 10 Mg/2 Ml Sdv IVPUSH 11/10/20 03:41 10 mg ONETIME ONE Administration - Re-Assessments/Exams Free Text/Narrative Re-Assessment/Exam: 11/10/20 05:07 I had my nurse access her port, and I ordered 2L of LR, reglan 10mg IV, benadryl 25mg IV, dilaudid 0.5mg IV, labs, COVID [address] of her abdomen and pelvis without contrast. Her WBC was elevated at 13.05. Her HGB is elevated at 18.4. Her anion gap is elevated at 22.4. Her creatinine is elevated at 1.8. Her GFR is low at 33. Her glucose is elevated at 148. Her lactic acid is elevated at 2.1. Her HCG is negative. 11/10/20 06:[address] shows mild infiltrate in the right lower lobe concerning for pneumonia. No CT evidence of active Crohn's disease. Right lower quadrant ostomy. She feels much better. She does have a slight cough. I feel I should treat the pneumonia. I will get her on some zithromax. Departure - Departure Time of Disposition: 06:35 Disposition: Home, Self-Care 01 Condition: Good Clinical Impression: Crohn disease Qualifiers: Gastrointestinal tract location: unspecified location Digestive disease complication type: unspecified complication Qualified Code(s): K50.919 - Crohn's disease, unspecified, with unspecified complications Nausea & vomiting Qualifiers: Vomiting type: unspecified Vomiting Intractability: non-intractable Qualified Code(s): R11.2 - Nausea with vomiting, unspecified Pneumonia Qualifiers: Pneumonia type: due to unspecified organism Laterality: right Lung location: lower lobe of lung Qualified Code(s): J18.9 - Pneumonia, unspecified organism - Discharge Information *PRESCRIPTION DRUG MONITORING PROGRAM REVIEWED*: Not Applicable *COPY OF PRESCRIPTION DRUG MONITORING REPORT IN PATIENT ADRIAN: Not Applicable Prescriptions: Azithromycin [Zithromax] 250 mg PO DAILY #6 tab Referrals: Magre Winn PA-C [Primary Care Provider] - 1 Week Forms: ED Department Discharge Additional Instructions: Drink plenty of fluids. Take your medications as prescribed. I have added azithromycin an antibiotic for pneumonia. Take 2 pills on day 1 and 1 pill on day 2 through 5. Follow up with your doctor this week. Please return if you are worse. Sepsis Event Note (ED) - Evaluation Sepsis Screening Result: Possible Sepsis Risk - Focused Exam Vital Signs: Vital Signs Temp Pulse Resp BP Pulse Ox 11/10/20 03:32 97.0 F 150 H 26 H 117/67 100 - My Orders Last 24 Hours: My Active Orders 11/10/20 03:40 Sodium Chloride 0.9% [Saline Flush] 10 ml FLUSH ASDIRECTED PRN Peripheral IV Insertion Adult [OM.PC] Stat 11/10/20 03:41 Peripheral IV Care [RC] . DIRECTED ED Antiemetic Medication Reflex [OM.PC] Stat 11/10/20 03:45 Abdomen Pelvis wo Cont [CT] Stat BLOOD CULTURE [MREF] Stat Lactated Ringers [Ringers, Lactated] 1,000 ml IV ASDIRECTED 11/10/20 03:55 CORONAVIRUS COVID-19 SOO [MOLEC] Stat 11/10/20 04:05 BLOOD CULTURE [MREF] Stat 11/10/20 04:33 REFLEX LACTIC ACID YES OR NO [CHEM] Routine - Assessment/Plan Last 24 Hours: My Active Orders 11/10/20 03:40 Sodium Chloride 0.9% [Saline Flush] 10 ml FLUSH ASDIRECTED PRN Peripheral IV Insertion Adult [OM.PC] Stat 11/10/20 03:41 Peripheral IV Care [RC] . DIRECTED ED Antiemetic Medication Reflex [OM.PC] Stat 11/10/20 03:45 Abdomen Pelvis wo Cont [CT] Stat BLOOD CULTURE [MREF] Stat Lactated Ringers [Ringers, Lactated] 1,000 ml IV ASDIRECTED 11/10/20 03:55 CORONAVIRUS COVID-19 SOO [MOLEC] Stat 11/10/20 04:05 BLOOD CULTURE [MREF] Stat 11/10/20 04:33 REFLEX LACTIC ACID YES OR NO [CHEM] Routine
[2020-11-10 06:59] VITALS: BP 96/65; PULSE 108
--- NOTE | 2020-11-10 08:30 | CT ---
CT abdomen and pelvis Technique: Multiple axial sections were obtained from above the dome of the diaphragm inferiorly through the pubic symphysis. Intravenous and oral contrast were not utilized. Reconstructed coronal and sagittal images were obtained. Comparison: Prior CT abdomen and pelvis study of 03/20/12. Findings: Patchy area of increased density is noted within the right lung base. Left lung base is clear. Noncontrast appearance of the liver shows no focal parenchymal abnormality. Gallbladder contains no calcified gallstones. Spleen appears within normal limits. Both kidneys show minimal calcifications most likely representing minimal small nonobstructing calculi. No ureteral dilatation is appreciated. Abdominal aorta shows no aneurysm. No retroperitoneal adenopathy or mesenteric abnormalities are seen. Right lower quadrant ostomy is noted. No bowel dilatation or bowel wall thickening is seen. No pelvic mass or adenopathy is appreciated. Appendix is not visualized. Bone window settings were reviewed which appear within normal limits for the patient's age. Impression: 1. Ostomy within the right lower abdomen. 2. Nonobstructing renal calculi within the kidneys. 3. Density within the right lower chest suspicious for early area of pneumonia. Please correlate with patient's symptoms. Diagnostic code #3 I agree with preliminary report from [facility], finalized on 11/10/20, 7:03 AM CDT, code 1
== END 2020-11-10 06:58 | disposition home or self-care (01) ==
LOC: JD.ED 03:19
DX: J18.9 Pneumonia, unspecified organism (principal); K50.919 Crohn's disease, unspecified, with unspecified complications; Z88.8 Allergy status to other drugs, medicaments and biological substances; Z79.899 Other long term (current) drug therapy
CPT/HCPCS: 36415; 74176; 80053; 83605; 83735; 84703; 85025; 87040; 96374; 96375; 99284; J1170; J1200; J1642; J2765; J7120

== ENCOUNTER 2023-06-23 07:00 | Inpatient (IN) | payer BC ==
[2023-06-23] MEDS: Ondansetron 4 MG/2 ML SDV IVPUSH ONE (07:51)
[2023-06-23] MEDS: Sodium Chloride 0.9% 1,000 ML IV SCH ×2 (07:51→14:24)
[2023-06-23 07:55] LABS: BASOPHILS ABSOLUTE AUTO 0.1 K/mm3 (0.0-0.2); BASOPHILS PERCENT AUTO 0.5 % (0.0-1.0); EOSINOPHILS PERCENT AUTO 0.1 % (0.0-6.0); HEMATOCRIT 52.1 % (37.0-47.0); HEMOGLOBIN 17.6 gm/dl (12.0-16.0); IMMATURE GRAN ABSOLUTE AUTO 0.06 K/mm3 (0.00-0.05); IMMATURE GRAN PERCENT AUTO 0.4 % (0.0-0.4); LYMPHOCYTES ABSOLUTE AUTO 1.1 K/mm3 (1.0-4.8); LYMPHOCYTES PERCENT AUTO 6.9 % (24.0-44.0); MEAN CORPUSCULAR HEMOGLOBIN 29.3 pg (28.0-32.0); MEAN CORPUSCULAR HGB CONC 33.8 g/dl (32.0-36.0); MEAN CORPUSCULAR VOLUME 86.8 fl (83.0-99.0); MEAN PLATELET VOLUME 9.7 fl (9.4-12.3); MONOCYTES ABSOLUTE AUTO 2.1 K/mm3 (0.0-0.8); MONOCYTES PERCENT AUTO 12.5 % (0.0-8.0); NEUTROPHILS ABSOLUTE AUTO 13.1 K/mm3 (1.8-7.7); NEUTROPHILS PERCENT AUTO 79.6 % (41.0-71.0); PLATELET COUNT,PLT 263 K/mm3 (150-400); WHITE BLOOD CELL COUNT,WBC 16.45 K/mm3 (3.9-11.3)
[2023-06-23 08:13] LABS: SLIDE REVIEW ABNORMAL SMEAR
[2023-06-23 08:23] LABS: A/G RATIO 1.3 (1-2); ALBUMIN 5.4 g/dl (3.4-5.0); ANION GAP 23.2 (5-15); BILIRUBIN TOTAL 0.6 mg/dL (0.2-1.0); BUN/CREATININE RATIO 10.9 (14-18); C-REACTIVE PROTEIN 7.65 mg/dL (<0.30); CALCIUM 10.8 mg/dL (8.5-10.1); CREATININE 2.2 mg/dL (0.55-1.02); EST CRCL DRUG DOSING (CG) 31.25 mL/min; LACTIC ACID 1.8 mmol/L (0.4-2.0); MAGNESIUM 2.1 mg/dL (1.8-2.4); POTASSIUM,K 4.2 mEq/L (3.5-5.1); PROTEIN TOTAL,TP 9.6 g/dl (6.4-8.2)
[2023-06-23] MEDS: HYDROmorphone 0.5 MG/0.5 ML Syringe IVPUSH ONE (09:08)
[2023-06-23] MEDS: Sodium Chloride 0.9% 1,000 ML IV ONE (09:41)
[2023-06-23 10:39] LABS: CORONAVIRUS COVID-19 NAA NEGATIVE (NEGATIVE); INFLUENZA A NAA NEGATIVE (NEGATIVE); RESPIRATORY SYNCYTIAL VIR NAA NEGATIVE (NEGATIVE)
[2023-06-23] MEDS ORDERED: Lactated Ringers 1,000 ML IV SCH (12:30)
[2023-06-23] MEDS: cefTRIAXone 1 GM in Sodium Chloride 0.9% 100 ML IV ONE (12:39)
[2023-06-23] MEDS ORDERED: oxyCODONE 5 MG Tab PO PRN (13:57)
[2023-06-23] MEDS ORDERED: HYDROmorphone 0.5 MG/0.5 ML Syringe IVPUSH PRN (13:57)
[2023-06-23] MEDS ORDERED: Acetaminophen 325 MG Tab PO PRN (13:57)
[2023-06-23] MEDS: Ondansetron 4 MG/2 ML SDV IVPUSH PRN (14:09)
[2023-06-23] MEDS: metroNIDAZOLE/Normal Saline 500 MG in Premix Bag 1 BAG IV SCH (14:45)
[2023-06-23] MEDS: Gabapentin 100 MG Cap PO SCH (14:46)
[2023-06-23] MEDS: Gabapentin 300 MG Cap PO SCH (14:46)
[2023-06-23] MEDS ORDERED: Albuterol/Ipratropium 3.0-0.5 MG/3 ML Neb Soln NEB PRN (15:00)
[2023-06-23] MEDS ORDERED: Promethazine 12.5 MG in Sodium Chloride 0.9% 50 ML IV PRN (15:47)
[2023-06-23] MEDS ORDERED: Loperamide 2 MG Cap PO PRN (15:58)
[2023-06-23] MEDS: Promethazine 12.5 MG in Sodium Chloride 0.9% 50 ML IV ONE (16:12)
[2023-06-23] MEDS: Loperamide 2 MG Cap PO ONE (17:00)
[2023-06-23] MEDS: Heparin Sodium 5,000 Units/ML Vial SUBCUT SCH (17:04)
[2023-06-24 04:52] LABS: BASOPHILS PERCENT AUTO 0.3 % (0.0-1.0); EOSINOPHILS PERCENT AUTO 0.3 % (0.0-6.0); HEMOGLOBIN 13.2 gm/dl (12.0-16.0); IMMATURE GRAN ABSOLUTE AUTO 0.02 K/mm3 (0.00-0.05); IMMATURE GRAN PERCENT AUTO 0.3 % (0.0-0.4); LYMPHOCYTES ABSOLUTE AUTO 1.4 K/mm3 (1.0-4.8); LYMPHOCYTES PERCENT AUTO 21.2 % (24.0-44.0); MEAN CORPUSCULAR HEMOGLOBIN 29.7 pg (28.0-32.0); MEAN CORPUSCULAR HGB CONC 33.8 g/dl (32.0-36.0); MEAN CORPUSCULAR VOLUME 87.6 fl (83.0-99.0); MEAN PLATELET VOLUME 9.5 fl (9.4-12.3); MONOCYTES ABSOLUTE AUTO 1.4 K/mm3 (0.0-0.8); NEUTROPHILS ABSOLUTE AUTO 3.8 K/mm3 (1.8-7.7); NEUTROPHILS PERCENT AUTO 56.9 % (41.0-71.0); PLATELET COUNT,PLT 180 K/mm3 (150-400); RED BLOOD CELL COUNT 4.45 M/mm3 (4.10-5.30); WHITE BLOOD CELL COUNT,WBC 6.66 K/mm3 (3.9-11.3)
[2023-06-24 05:20] LABS: A/G RATIO 1.1 (1-2); ALBUMIN 3.2 g/dl (3.4-5.0); ANION GAP 16.7 (5-15); BILIRUBIN TOTAL 0.3 mg/dL (0.2-1.0); BUN/CREATININE RATIO 22.5 (14-18); C-REACTIVE PROTEIN 3.18 mg/dL (<0.30); CALCIUM 8.4 mg/dL (8.5-10.1); CREATININE 0.8 mg/dL (0.55-1.02); EST CRCL DRUG DOSING (CG) 86.08 mL/min; MAGNESIUM 1.7 mg/dL (1.8-2.4); POTASSIUM,K 3.7 mEq/L (3.5-5.1); PROTEIN TOTAL,TP 6.1 g/dl (6.4-8.2)
[2023-06-24 06:43] LABS: SLIDE REVIEW ABNORMAL SMEAR
[2023-06-24] MEDS: Oxybutynin 5 MG Tab PO SCH (08:27)
[2023-06-24] MEDS: Magnesium Sulfate/Water 2 GM in Premix Bag 1 BAG IV ONE (08:55)
[2023-06-24] MEDS ORDERED: cefTRIAXone 1 GM in Sodium Chloride 0.9% 100 ML IV SCH (12:30)
[2023-06-24 12:42] VITALS: BP 99/69; PULSE 99
== END 2023-06-24 12:40 | disposition home or self-care (01) | DRG 720 ==
LOC: JD.ED 07:00 → JD.MS 12:51
PROVIDERS: ADMIT Hospitalist; ATTEND Hospitalist
DX: A41.9 Sepsis, unspecified organism (principal); R65.21 Severe sepsis with septic shock; N17.9 Acute kidney failure, unspecified; J18.9 Pneumonia, unspecified organism; E86.0 Dehydration; R11.2 Nausea with vomiting, unspecified; R19.7 Diarrhea, unspecified; N31.9 Neuromuscular dysfunction of bladder, unspecified; D64.9 Anemia, unspecified; D72.829 Elevated white blood cell count, unspecified; C85.80 Other specified types of non-Hodgkin lymphoma, unspecified site; Z87.19 Personal history of other diseases of the digestive system; Z85.71 Personal history of Hodgkin lymphoma; Z98.890 Other specified postprocedural states; Z95.828 Presence of other vascular implants and grafts; Z93.2 Ileostomy status; Z88.8 Allergy status to other drugs, medicaments and biological substances; Z79.899 Other long term (current) drug therapy
CPT/HCPCS: 0241U; 36415; 74176; 74176-26; 80053; 81025; 83605; 83690; 83735; 84100; 84484; 85025; 86140; 87040; 87493; 93005; 93010; 94760; 99285; A9270-GY; J0696; J1170; J1836; J2405; J2550; J3475; J3490; J7030